=== PATIENT | male | born 1960 | race Caucasian/White ===

== ENCOUNTER → 2017-12-08 10:15 | Outpatient (CLI) | payer OTHER, SELFPAY ==
[2017-07-04 12:04] VITALS: BMI 29.2
--- NOTE | 2017-12-08 11:00 | STE_ITS ---
Reason For Study: CAD, Ischemic Cardiomyopathy Stress Results Protocol: Stress Echocardiogram Maximum Predicted HR: 164 bpm Target HR: 139 bpm% Maximum Pr edicted HR: 81 % DurationHeart Rate Stage (mm:ss) (bpm) BP BASELINE 67 132/84 BENEDICT PROTOCOL- STAGE 1 3:00 10 1 140/80 BENEDICT PROTOCOL- STAGE 2 3:00 11 2 138/84 BENEDICT PROTOCOL- STAGE 3 3:00 12 3 140/84 BENEDICT PROTOCOL- STAGE 4 1:30 13 3 / RECOVERY 85 132/80 Stress Duration: 10:30 mm:ss Maximum Stress HR: 133 bpm Baseline Echocardiogram Findings The estimated ejection fraction is 50 %. Stress Echo Wall motion Data Resting WMIntermediate WMStress WM Resting Wall Motion Anterio-Basal: Mildly hypokinetic. Basal anteroseptal: Mildly hypokinetic. Mid-Anterior : Severely Hypokinetic. Anterior [place] : Akinetic. EKG Data Normal intervals are noted. NSR with old anterior wall [place]. The patient exercised according to the regular Benedict protocol for a total duration of 10:30. The maximum heart rate attained was 133 beats per minute. This was 81% of maximum predicted heart rate. The patient exercised into stage 4 of the Benedict protocol. During stress, there were no ST or T wave changes noted to suggest ischemia. Interpretation Summary Normal adequate treadmill echocardiogram. Negative for ischemia by EKG and echocardiographic criteria. Patient had baseline moderate to severe anterior apical hypokinesis which did not worsen during exercise. All other coto augmented normally. No anginal symptoms noted. No arrhythmias noted. Above average exercise capacity for age. Appropriate blood pressure response to exercise. Patient tolerated the procedure well. No complications. Ordering Physician: Lewis Hoff Referring Physician: Lewis Hoff Performed By: Doreen Rincon, RDCS, RVT
== END ==
PROVIDERS: Family Provider Family Medicine; PCP Family Medicine; Visit Provider Internal Medicine Cardiovascular Disease
DX: I25.5 Ischemic cardiomyopathy (principal); I25.10 Atherosclerotic heart disease of native coronary artery without angina pectoris; E78.5 Hyperlipidemia, unspecified; I25.2 Old myocardial infarction; Z95.5 Presence of coronary angioplasty implant and graft; Z86.74 Personal history of sudden cardiac arrest; Z87.09 Personal history of other diseases of the respiratory system
CPT/HCPCS: 93017; 93350

== ENCOUNTER → 2018-01-13 22:22 | Outpatient (CLI) | payer OTHER, SELFPAY ==
[2017-07-04 12:04] VITALS: BMI 29.2
== END ==
PROVIDERS: Family Provider Family Medicine; PCP Family Medicine; Visit Provider Nurse Practitioner Acute Care
DX: G47.33 Obstructive sleep apnea (adult) (pediatric) (principal)
CPT/HCPCS: 95810

== ENCOUNTER → 2018-02-06 10:12 | Outpatient (CLI) | payer OTHER, SELFPAY ==
[2017-07-04 12:04] VITALS: BMI 29.2
--- NOTE | 2018-02-06 13:17 | PFT ---
INTRODUCTION: The patient is a 57-year-old male currently under the care of Sole Hough NP that presents for pulmonary function testing secondary to a diagnosis of dyspnea on exertion. Respiratory therapy reports good patient effort. Bronchodilators were used during testing. INTERPRETATION: Forced expiration spirometry demonstrates no evidence of a large airways obstructive ventilatory defect. There was no significant response to aerosolized bronchodilators, based upon strict ATS criteria. Spirograms are of fair quality and plateau normally. Body plethysmography was performed and reveals lung volumes to be within normal limits. Diffusing capacity by single breath CO is at the lower limits of normal at 78% of predicted. IMPRESSION: These pulmonary function studies are essentially within normal limits. There are no previous pulmonary function studies available for comparison.
== END ==
PROVIDERS: Family Provider Family Medicine; PCP Family Medicine; Visit Provider Nurse Practitioner Acute Care
DX: R06.09 Other forms of dyspnea (principal)
CPT/HCPCS: 94060; 94726; 94729

== ENCOUNTER → 2018-02-17 20:23 | Outpatient (CLI) | payer OTHER, SELFPAY ==
[2017-07-04 12:04] VITALS: BMI 29.2
== END ==
PROVIDERS: Family Provider Family Medicine; PCP Family Medicine; Visit Provider Internal Medicine Critical Care Medicine
DX: G47.33 Obstructive sleep apnea (adult) (pediatric) (principal)
CPT/HCPCS: 95811

== ENCOUNTER 2018-12-17 20:37 | Observation (INO) | payer OTHER, SELFPAY ==
[2017-07-04 12:04] VITALS: BMI 29.2
[2018-12-15 11:30] VITALS: BMI 28.1
[2018-12-17] VITALS (8 sets, daily range): BP systolic 126–137; BP diastolic 82–99; PULSE 64–80; RESP 17–20; TEMP 36.9–37.2; O2SAT 95–99; BMI 29.0; BMI 28.5; BMI 28.6
--- NOTE | 2018-12-17 20:49 | RAD_ITS ---
STUDY: X-RAY CHEST REASON FOR EXAM: Male, 58 years old. Chest pain TECHNIQUE: Frontal view of the chest COMPARISON: 07/25/2017 FINDINGS: The lungs are clear. There are no pleural effusions. There is no pneumothorax. The heart is normal in size. The visualized osseous structures are within normal limits. RAD/Chest 1 View (Portable) IMPRESSION: No acute thoracic pathology. Electronically Signed: Mathew Nichols, at 21:24 EST Tel , Service support ,
--- NOTE | 2018-12-17 20:49 | EKG12_ITS ---
Test Reason : CP Blood Pressure : / mmHG Vent. Rate : 077 BPM Atrial Rate : 077 BPM P-R Int : 168 ms QRS Dur : 080 ms QT Int : 460 ms P-R-T Axes : 048 -34 072 degrees QTc Int : 520 ms Normal sinus rhythm Left axis deviation Low voltage QRS Septal infarct , age undetermined Abnormal ECG Confirmed by DAVION CADE, MEGHNA ([id number]), manager editorial MAYKEL PAYAN ([id number]) on 12/18/2018 2:38:09 PM Referred By: RAMÍREZ Confirmed By:MEGHNA RICARDO MD
[2018-12-17] MEDS: Ondansetron 4 MG/2 ML Vial IV (20:53)
--- NOTE | 2018-12-17 20:53 | ED.DCSUM_ITS ---
- ER Visit Summary Date of Service: 12/17/18 Chief Complaint: Chest pain History of Present Illness: The patient is a 58 M presenting with chest pain. He states this started around 5 PM. He has substernal chest pain. He also complains of epigastric pain. He states this feels similar to his [place] June 2017. He states pain is 8 out of 10. It is not worsened or relieved with anything. History of hypertension and previous smoker. He has a family history of early heart disease. He saw Dr. Hoff on Tuesday and was scheduled for an echo and stress test. Physical Examination: Vitals are stable. Patient is afebrile. Alert no acute distress. HEENT exam is unremarkable. Neck is supple. Lungs are clear and equal bilaterally. Heart is regular rate and rhythm. Abdomen is soft nontender nondistended. Extremities are unremarkable. Skin is warm and dry. No focal neurologic deficit. Remainder of exam is unremarkable. Emergency Department Course and Treatment: Patient was given aspirin, morphine, Zofran. CBC, chemistries unremarkable other than BUN 26, creatinine 1.62. Troponin negative. Lipase is normal. EKG is sinus rate of 77. Chest x-ray shows no acute process. On reevaluation, patient is chest pain-free. Discussed with hospitalist for observation. Disposition: Observation Impression: Chest pain This note was generated with [employer] dictation software. It may contain incorrect words, spelling, and punctuation that were not noted in review of the chart prior to signing ED Disposition - Plan for ED Patient: Referrals: Yoel Cortez DO [Primary Care Provider] -
[2018-12-17] MEDS: Morphine 4 MG/ML Syringe IV (20:55)
[2018-12-17] MEDS: Aspirin 81 MG TAB.CHEW 324 MG PO (20:58)
[2018-12-17 20:59] LABS: Absolute Lymphocyte Count 2.52 X10^3/ul (0.83-4.51); Absolute Neutrophil Count 6.3 X10^3/uL (2.0-7.7); Basophil# 0.03 X10^3/uL; Basophil% 0.3 % (0-1); Eosinophil# 0.64 X10^3/uL; Hematocrit 44.7 % (40-54); Hemoglobin 14.8 g/dl (13.0-16.5); Lymphocyte # 2.52 X10^3/ul (4.0); Lymphocyte % 23.6 % (19-41); Mean Corp Hgb Conc 33.1 g/gl (32-36); Mean Corpuscular Hgb 32.5 pg (27.0-32.0); Mean Platelet Vol. 10.1 fl (6.2-12.0); Monocyte# 1.21 X10^3/uL; Monocyte% 11.3 % (0-10); Neutrophil # 6.27 X10^3/uL (2.7-7.7); Neutrophil % 58.6 % (47-70); POSITIVE COUNT NO; POSITIVE DIFFERENTIAL NO; POSITIVE MORPHOLOGY NO; Platelet Count 439 K/mm3 (150-450); RBC Distribution Width CV 13.4 % (11.6-14.6); RBC Distribution Width SD 47.6 fl (35.1-43.9); Red Blood Count 4.56 M/mm3 (4.6-6.2); White Blood Count 10.7 K/mm3 (4.4-11.0)
[2018-12-17 21:15] LABS: Anion Gap 6 (5-15); BUN 26 mg/dL (7-18); Calcium,Total 8.5 mg/dL (8.5-10.1); Chloride 106 mmol/L (98-107); Creatinine, Serum 1.62 mg/dL (0.70-1.30); EST Glomerular Filtration Rate 47 mL/min (>60); Est Glom Filt Rate - Afr Amer 57 mL/min (>60); Estimated Creatinine Clearance 51.95 ml/min; Glucose 101 mg/dL (74-106); Lipase 141 U/L (73-393); Potassium 3.8 mmol/L (3.5-5.1); Sodium Level 138 mmol/L (136-145)
--- NOTE | 2018-12-17 22:01 | PCM.HP.STD ---
Problem List (1) Ischemic cardiomyopathy Status: Chronic (2) Hyperlipidemia Status: Chronic (3) Atherosclerotic heart disease of [place] coronary artery without angina pectoris Status: Chronic Comment: aspiration thrombectomy, balloon angioplasty and CONNOR to proximal LAD 07/02/2017 (4) History of cardiac arrest Status: Chronic (5) HTN (hypertension) Status: Chronic History of Present Illness Date of Admission: 12/17/18 Chief Complaint: Epigastric pain/chest pain. The patient is a 58 year old M with past medical history as mentioned above presented to the emergency room because of epigastric pain/chest pain. The patient is not interested in talking during the encounter and he kept his eyes closed throughout the encounter. His and daughter were at the bedside and his assisted providing the history. According to the patient, he started having epigastric pain 4-5 hours ago, sharp pain, 9 out of 10 in severity, sometimes goes to the left side of his chest, no aggravating or relieving factors and without other associated symptoms. He denies shortness of breath, dizziness, palpitation, syncope or presyncope. His mentioned that he does have a history of reflux. Also, she mentioned that this pain was very similar to the pain when he had his heart attack 2 [address] He [address] Hoff this past Tuesday with complaint of chest pain and he states that his pain today is different from the pain he had when he saw Dr. Hoff 2 days ago. Patient denied nausea, vomiting, constipation or diarrhea. In the emergency department, his vital signs are stable. His routine blood work was remarkable for BUN of 26 and creatinine of 1.62, otherwise normal. His lipase was normal. EKG revealed normal sinus rhythm, normal [place] interval, normal QRS, no acute ischemic changes. Troponin is negative. Chest x-ray showed no acute findings. He is being admitted for chest pain/epigastric pain for evaluation. Past Medical History Past Medical History (Chronic Problems): Chronic Problems (Last Updated 12/17/18 @ 21:45 by Paige Hollins MD) PETERSON (obstructive sleep apnea) (Chronic) BiPAP 12/8 cm of water History of pneumothorax (Chronic) Ischemic cardiomyopathy (Chronic) Hyperlipidemia (Chronic) Tobacco abuse (Chronic) Stented coronary artery (Chronic) aspiration thrombectomy, balloon angioplasty and CONNOR to proximal LAD 07/02/2017 Atherosclerotic heart disease of [place] coronary artery without angina pectoris (Chronic) aspiration thrombectomy, balloon angioplasty and CONNOR to proximal LAD 07/02/[address] elevation myocardial infarction (STEMI) (Chronic) History of cardiac arrest (Chronic) HTN (hypertension) (Chronic) Medical History: Medical History (Last Updated 12/17/18 @ 21:45 by Paige Hollins MD) History of pneumothorax (Chronic) Z87.09 Ischemic cardiomyopathy (Chronic) I25.5 Hyperlipidemia (Chronic) E78.5 Tobacco abuse (Chronic) Z72.0 Atherosclerotic heart disease of [place] coronary artery without angina pectoris (Chronic) I25.10 aspiration thrombectomy, balloon angioplasty and CONNOR to proximal LAD 07/02/[address] elevation myocardial infarction (STEMI) (Chronic) I25.2 History of cardiac arrest (Chronic) Z86.74 HTN (hypertension) (Chronic) I10 Allergies No Known Allergies Allergy (Verified 12/17/18 21:03) Home Medications: Ambulatory Orders Medication Instructions Recorded buPROPion XL [Wellbutrin Xl] 150 mg PO DAILY 07/08/17 Aspirin [Aspirin, Baby] 81 mg PO DAILY@0800 #30 tab.chew 07/12/17 Potassium Chloride [Klor-Con 10] 10 meq PO DAILY #14 tablet.er 07/12/17 atorvastatin 20 mg tablet 20 mg PO QHS #90 tab 07/24/18 carvedilol 6.25 mg tablet 6.25 mg PO BID #180 tab 07/24/18 clopidogrel 75 mg tablet 75 mg PO QDAY #90 tab 07/24/18 furosemide 20 mg tablet 20 mg PO DAILY #90 tab 07/24/18 losartan 50 mg tablet 50 mg PO DAILY #90 tab 07/24/18 isosorbide mononitrate ER 30 mg 30 mg PO DAILY #30 tab 12/15/18 tablet,extended release 24 hr Surgical History: Surgical History (Last Updated 12/17/18 @ 21:45 by Paige Hollins MD) Stented coronary artery (Chronic) Z95.5 aspiration thrombectomy, balloon angioplasty and CONNOR to proximal LAD 07/02/2017 Surgical History: - - surgeries in the past for sleep apnea, broken neck in 1982 Psychiatric History: No pertinent psych hx Lives: Spouse/ Significant Other Smoking Status: Former smoker Alcohol: None Drugs: None - *Family History Sibling Family History: Family History (Last Reviewed 12/15/18 @ 11:20 by Virgie Douglas) Father CAD (coronary artery disease) Mother History of heart valve replacement Brother CVA (cerebral vascular accident) Aunt CAD (coronary artery disease) Uncle CAD (coronary artery disease) History Items: Heart Disease Maternal Family History: Family History (Last Reviewed 12/15/18 @ 11:20 by Virgie Douglas) Father CAD (coronary artery disease) Mother History of heart valve replacement Brother CVA (cerebral vascular accident) Aunt CAD (coronary artery disease) Uncle CAD (coronary artery disease) History Items: Heart Disease, - - strokes Paternal Family History: Family History (Last Reviewed 12/15/18 @ 11:20 by Virgie Douglas) Father CAD (coronary artery disease) Mother History of heart valve replacement Brother CVA (cerebral vascular accident) Aunt CAD (coronary artery disease) Uncle CAD (coronary artery disease) History Items: Heart Disease Review of Systems Constitutional: Reports: Anorexia. Denies: Chills, Fever, Weakness Eyes: Denies: Blurred vision, Double vision, Drainage, Redness HEENT: Denies: Difficulty Hearing, Ear Pain, Eye Pain, Nasal Congestion, Sore Throat Cardiovascular: Reports: Chest Pain. Denies: Chest Pressure, Chest Tightness, Edema, Heaviness, Light Headedness, Orthopnea, Paroxysmal Noc. Dyspnea, Syncope Respiratory: Denies: Cough, Hemoptysis, Pleuritic Pain, Shortness of Breath, Sputum production, Wheezing Gastrointestinal: Reports: Abdominal Pain. Denies: Constipation, Diarrhea, Nausea, Vomiting Genitourinary: Denies: Dysuria, Frequency, Hematuria Musculoskeletal: Denies: Arm Pain, Back Pain, Foot Pain Skin: Denies: Dryness, Rash Neurological: Denies: Balance problems, Double vision, Change in Speech, Slurred speech, Confusion, Headaches, Incoordination Psychiatric: Denies: Anxiety, Depression Endocrine: Denies: Change in Body Habitus, Polydipsia VTE Information - Inpt Only VTE Present on Admission: No VTE Mechan Device Prophylaxis: None VTE Pharm Prophylaxis ordered?: No - Physical Exam General: Alert, Oriented x3, Cooperative, No apparent distress HEENT: Atraumatic, PERRLA, EOMI, Normocephalic Oral: Moist Mucosa, No Gingival or Mucosal Lesions/ Ulcerations Neck: Supple, No JVD, Negative Carotid Bruits, Trachea Midline, Thyroid Normal Size and Texture Lungs: Clear to auscultation, Normal air movement, No rhonchi, No wheeze, No rales Cardiovascular: Regular rate, Regular Rhythm, Normal S1, Normal S2, PMI Normal Abdomen: Bowel Sounds Present, Soft, Non-Distended, No Hepato-splenomegaly, Tender - Minimal epigastric tenderness. Extremities: No clubbing, No cyanosis, No edema Skin: No rashes, No breakdown Lymphatic: No Cervical, Supraclavicular, or Inguinal Adenopathy Neurological: Cranial nerves II-XII grossly intact, Motor Exam 5/5 strength throughout Psych/Mental Status: Normal Affect, Appropriate, Alert and oriented to time, place, person, mood and affect Vital Signs Temp Pulse Resp BP Pulse Ox 98.9 F 65 18 130/84 H 99 12/17/18 20:38 12/17/18 21:53 12/17/18 21:53 12/17/18 21:53 12/17/18 21:53 Oxygen Flow Rate (L/min) 2 Oxygen Delivery Method Nasal Cannula Weight: 202 lb Body Mass Index (BMI) 29.0 Laboratory Tests Past 24 Hrs 12/17/18 12/17/18 20:47 20:47 WBC 10.7 RBC 4.56 L Hgb 14.8 Hct 44.7 MCV 98.0 H MCH 32.5 H MCHC 33.1 RDW 13.4 RDW Differential 47.6 H Plt Count 439 MPV 10.1 Immature Gran % (Auto) 0.200 Neut % (Auto) 58.6 Lymph % (Auto) 23.6 Branch % (Auto) 11.3 H Eos % (Auto) 6.0 H Baso % (Auto) 0.3 Absolute Neuts (auto) 6.3 Absolute Lymphs (auto) 2.52 Total Counted Not Reportable Sodium 138 Potassium 3.8 Chloride 106 Carbon Dioxide 26.0 Anion Gap 6 BUN 26 H Creatinine 1.62 H Estim Creat Clear Calc 51.95 Est GFR (MDRD) Af Amer 57 L Est GFR (MDRD) Non-Af 47 L BUN/Creatinine Ratio 16.0 Glucose 101 Calcium 8.5 Troponin I < 0.015 Lipase 141 Clinical Impression(s) from Imaging Studies Chest X-Ray 12/17/18 20:49 IMPRESSION: No acute thoracic pathology. Electronically Signed: Mathew Nichols, at 21:24 EST Tel , Service support , Assessment/Plan This is a 58 years old male patient presented to the emergency room because of epigastric/chest pain and he is being admitted for evaluation because he had a history of CAD status post stents and also found to have acute kidney injury. #1 epigastric pain/chest pain/probable angina pectoris: Differential diagnoses include GERD, peptic ulcer disease or acute coronary syndrome. Patient's mentioned that he had the same pain he had his heart attack 2 years ago. EKG revealed normal sinus rhythm without evidence of acute ischemic changes. Troponin is negative. Chest x-ray showed no acute findings. Plan: Admit to PCU for observation, cardiac monitoring, serial cardiac enzymes, repeat EKG tomorrow morning, start IV Protonix, Mylanta as needed, IV fluids, nuclear stress test tomorrow morning if cardiac enzymes are negative. #2 acute kidney injury: Baseline kidney function is normal, likely due to dehydration as well as Lasix and losartan. Plan: Gentle IV fluids for hydration, and Protopic chart, hold Lasix and losartan, repeat BMP tomorrow morning. #3 CAD status post stents: EKG reviewed as above, plan as above, continue aspirin, statins, Coreg, Plavix and nitrates. #4 hypertension: Blood pressure stable, continue Coreg and isosorbide mononitrate, hold losartan. #5 hyperlipidemia: Continue statins. #6 history of cardiac arrest. #7 DVT prophylaxis: Low-risk patient, no prophylaxis indicated. This note was generated with [employer] dictation software. It may contain incorrect words, spelling, and punctuation that were not noted in checking the note before signing. Code Visit OBSV E&M: 70742 Initial observation care L3
--- NOTE | 2018-12-17 22:08 | CM.ED ---
Social Work Assessment Referral Date: 12/17/18 Date of Assessment: 12/17/18 Informant: SELF REFERRAL Reason for Consult: INITIAL ASSESSMENT Information obtained from: PT'S , MARIE [phone] Living Arrangements: PT LIVES HOME WITH FAMILY IN A 2 STORY HOME. Employment/Financial: PT EMPLOYED BY [employer]. PT HAS INSURANCE THROUGH THE [employer]. Supports: PT HAS GOOD SUPPORT FROM FAMILY. Social/Family Stressors: NONE IDENTIFIED AT THIS TIME. Mental Health History: REPORTS HX OF DEPRESSION FOR PT AND STATES IS TREATED WITH MEDICATION-WELLBUTRIN. Substance Abuse History: STATES PT WAS A PREVIOUS SMOKER. Interventions: SOCIAL SERVICE ASSESSMENT Assessment: PT IS A 58 Y/O MALE WHO PRESENTS TO THE ED WITH CHEST PAIN, ABDOMINAL PAIN. PT WITH HX OF PA. REPORTS PT LIVES HOME WITH FAMILY IN A 2 STORY HOME. STATES PRIOR TO ADMISSION PT WAS INDEPENDENT WITH ALL ADLS AND WORKING. REPORTS HX OF DEPRESSION FOR PT AND STATES IS TREATED WITH MEDICATION-WELLBUTRIN PRESCRIBED BY PCP DR. JERRY IN [place]. REPORTS UTILIZES [facility]. EXPLAINED THIS WORKER'S ROLE. VOICES NO QUESTIONS OR CONCERNS AT THIS TIME. ANTICIPATE D/C HOME UPON D/C. PLAN: ADMIT
--- NOTE | 2018-12-17 22:34 | EKG12_ITS ---
Test Reason : CP ADMIT Blood Pressure : / mmHG Vent. Rate : 064 BPM Atrial Rate : 064 BPM P-R Int : 178 ms QRS Dur : 094 ms QT Int : 406 ms P-R-T Axes : 050 -32 -07 degrees QTc Int : 418 ms Normal sinus rhythm Left axis deviation Septal infarct , age undetermined T wave abnormality, consider anterior ischemia Abnormal ECG When compared with ECG of 05-JUL-2017 05:56, ST no longer elevated in Anterior leads Confirmed by DAVION CADE, MEGHNA ([id number]), food editor MAYKEL PAYAN ([id number]) on 12/19/2018 1:12:28 PM Referred By: DR TATE Confirmed By:MEGHNA RICARDO MD
[2018-12-17 23:07] LABS: AST(SGOT) 28 U/L (15-37); Alanine Aminotransfer ALT/SGPT 47 U/L (16-61); Albumin, Serum 3.9 g/dL (3.2-5.0); Alkaline Phosphatase 136 U/L (45-117); Bilirubin, Direct 0.15 mg/dL (0.00-0.30); Globulin 3.7 g/dL (2.2-4.2); Protein, Total 7.6 g/dL (6.4-8.2)
[2018-12-17] MEDS: Atorvastatin Calcium 20 MG Tablet PO (23:35)
[2018-12-17] MEDS: 0.9% Normal Saline 1,000 ML 75 ML IV (23:35)
[2018-12-18 03:18] VITALS: PULSE 68
[2018-12-18 05:00] VITALS: BP 108/71; PULSE 65; RESP 18; TEMP 36.8; O2SAT 96
[2018-12-18] MEDS: Aspirin 81 MG TAB.CHEW PO (05:06)
[2018-12-18] MEDS: Clopidogrel Bisulfate 75 MG Tablet PO (05:06)
--- NOTE | 2018-12-18 05:55 | EKG12_ITS ---
Test Reason : AM Blood Pressure : / mmHG Vent. Rate : 069 BPM Atrial Rate : 069 BPM P-R Int : 174 ms QRS Dur : 088 ms QT Int : 412 ms P-R-T Axes : 055 -24 016 degrees QTc Int : 441 ms Normal sinus rhythm Anteroseptal infarct , age undetermined Abnormal ECG When compared with ECG of 17-DEC-2018 22:40, MANUAL COMPARISON REQUIRED, DATA IS UNCONFIRMED Confirmed by DAVION CADE, MEGHNA ([id number]), movie editor MAYKEL PAYAN ([id number]) on 12/19/2018 1:09:35 PM Referred By: BEBETO Confirmed By:MEGHNA RICARDO MD
[2018-12-18 06:20] LABS: Anion Gap 9 (5-15); BUN 22 mg/dL (7-18); BUN/Creat Ratio 16.2 RATIO (10-20); Calcium,Total 7.8 mg/dL (8.5-10.1); Chloride 107 mmol/L (98-107); Creatinine, Serum 1.36 mg/dL (0.70-1.30); EST Glomerular Filtration Rate 57 mL/min (>60); Est Glom Filt Rate - Afr Amer 69 mL/min (>60); Estimated Creatinine Clearance 61.88 ml/min; Glucose 108 mg/dL (74-106); Potassium 3.8 mmol/L (3.5-5.1); Sodium Level 142 mmol/L (136-145)
[2018-12-18 06:26] LABS: Absolute Lymphocyte Count 2.36 X10^3/ul (0.83-4.51); Absolute Neutrophil Count 4.3 X10^3/uL (2.0-7.7); Basophil# 0.02 X10^3/uL; Basophil% 0.2 % (0-1); Eosinophil# 0.52 X10^3/uL; Eosinophils% 6.2 % (0-5); Hemoglobin 13.2 g/dl (13.0-16.5); Lymphocyte # 2.36 X10^3/ul (4.0); Lymphocyte % 28.3 % (19-41); Mean Corpuscular Hgb 32.4 pg (27.0-32.0); Mean Platelet Vol. 10.2 fl (6.2-12.0); Monocyte# 1.09 X10^3/uL; Monocyte% 13.1 % (0-10); Neutrophil # 4.33 X10^3/uL (2.7-7.7); Neutrophil % 52.1 % (47-70); Platelet Count 378 K/mm3 (150-450); RBC Distribution Width CV 13.4 % (11.6-14.6); RBC Distribution Width SD 47.7 fl (35.1-43.9); Red Blood Count 4.08 M/mm3 (4.6-6.2); White Blood Count 8.3 K/mm3 (4.4-11.0)
[2018-12-18 06:27] LABS: POSITIVE COUNT NO; POSITIVE DIFFERENTIAL NO; POSITIVE MORPHOLOGY NO
[2018-12-18 07:00] VITALS: PULSE 66
[2018-12-18 08:00] VITALS: O2SAT 93
[2018-12-18] MEDS: buPROPion (XL) 150 MG TABLET.XL PO (10:30)
[2018-12-18] MEDS: Isosorbide Mononitrate 30 MG Tablet PO (10:30)
[2018-12-18 10:37] VITALS: BP 130/85; PULSE 73; RESP 16; TEMP 36.6; O2SAT 95
[2018-12-18 11:00] VITALS: PULSE 69
--- NOTE | 2018-12-18 11:58 | STRESSREP ---
Stress Test Report Exercise myocardial perfusion stress test. 58-year-old man with a history of previous anterior wall myocardial infarction. Stress protocol: Resting EKG demonstrates normal sinus rhythm with a rate of 62 bpm normal intervals are noted poor R wave progression suggestive of a previous anterior infarct is present. Resting blood pressure 122/86. The patient decides to according to regular Boni protocol for total duration of 10 minutes patient completed 1 minute into stage IV of the Boni protocol. The maximum heart rate attained was 134 bpm which was 82% of maximum predicted heart rate the maximum workload was 11.7 metabolic equivalents. The patient maintained sinus rhythm throughout the recording. At rest there were no ST or T wave changes noted suggest ischemia peak exercise upsloping ST changes were noted with normally the criteria for ischemia no clinical angina was noted occasional premature ventricular complexes were present. The resting blood pressure was 122/86 peak blood pressure 150/60 mmHg Myocardial perfusion protocol. 11.6 mCi of technetium 99m sestamibi was injected at rest. The patient exercised according to regular Boni protocol. This was for total duration of 10 minutes. At peak exercise 33.7 mCi of technetium 99m sestamibi was injected stress images were obtained stress and rest images were reconstructed and compared in the short axis vertical and horizontal long axis. Gated images were also obtained. No angina was noted. Next Perfusion SPECT analysis: Review of the stress images demonstrate an upper normal left ventricular size. There is a large defect noted involving the mid anterior wall extending all the way through the apex. The anteroseptal wall is also affected. The resting images demonstrate a similar pattern. The above is suggestive of a previous large anteroseptal and apical infarct. No ischemia is noted. Gated SPECT analysis: The gated ejection fraction is noted to be 45% there is anterior apical hypokinesis noted. Conclusion: Exercise myocardial perfusion stress test with no evidence of ischemia noted at a high workload. Previous extensive anteroseptal and apical infarct. No clinical angina noted. No arrhythmias present.
--- NOTE | 2018-12-18 14:01 | DCINST_ITS ---
You will use the following diet at home:: Cardiac Your food should be the consistency of: Regular Your liquids should be the consistency of: Regular/Thin Discharge Activity: Return to Normal Activity, No Restrictions Call your doctor if you observe: Fever of 101 or Higher, Shortness of breath, Dizziness, Fainting spells, Swelling in the ankles, Chest pain, Increased palpitations (irregular heartbeat) Allergies/Adverse Reactions: Allergies No Known Allergies Allergy (Verified 12/17/18 21:03) Medications to take at Discharge buPROPion XL [Wellbutrin Xl] 150 mg PO DAILY 07/08/17 Aspirin [Aspirin, Baby] 81 mg PO DAILY@0800 #30 tab.chew 07/12/17 Potassium Chloride [Klor-Con 10] 10 meq PO DAILY #14 tablet.er 07/12/17 atorvastatin 20 mg tablet 20 mg PO QHS #90 tab 07/24/18 carvedilol 6.25 mg tablet 6.25 mg PO BID #180 tab 07/24/18 clopidogrel 75 mg tablet 75 mg PO QDAY #90 tab 07/24/18 furosemide 20 mg tablet 20 mg PO DAILY #90 tab 07/24/18 losartan 50 mg tablet 50 mg PO DAILY #90 tab 07/24/18 isosorbide mononitrate ER 30 mg tablet,extended release 24 hr 30 mg PO DAILY #30 tab 12/15/18 Primary Care Physician: Yoel Cortez DO [Primary Care Provider] - Please follow up with your Primary Care Physician in: 3-5 days Test Results: Test results from this visit will be discussed in further detail at your follow- up appointment, if applicable.
--- NOTE | 2018-12-18 14:06 | DS.PCM_ITS ---
Discharge Date and Diagnosis Date of Admission: 12/17/18 Date of Discharge: 12/18/18 - \ - Secondary Discharge Diagnosis Chronic Problems (Last Updated 12/17/18 @ 21:45 by Paige Hollins MD) PETERSON (obstructive sleep apnea) (Chronic) BiPAP 12/8 cm of water History of pneumothorax (Chronic) Ischemic cardiomyopathy (Chronic) Hyperlipidemia (Chronic) Tobacco abuse (Chronic) Stented coronary artery (Chronic) aspiration thrombectomy, balloon angioplasty and CONNOR to proximal LAD Atherosclerotic heart disease of [place] coronary artery without angina pectoris (Chronic) aspiration thrombectomy, balloon angioplasty and CONNOR to proximal LAD 07/02/[address] elevation myocardial infarction (STEMI) (Chronic) History of cardiac arrest (Chronic) HTN (hypertension) (Chronic) Hospital Course and Treatment Imaging Results: 12/18/18 05:55 Nuclear Stress Test - Treadmil [NM] Routine Consults: None Operations: None Procedures: Nuclear stress test - Gated SPECT analysis: The gated ejection fraction is noted to be 45% there is anterior apical hypokinesis noted. Conclusion: Exercise myocardial perfusion stress test with no evidence of isc hemia noted at a high workload. Previous extensive anteroseptal and apical infarct. No clinical angina noted. No arrhythmias present. Summary of Care Provided: Per HPI: The patient is a 58 year old M with past medical history as mentioned above presented to the emergency room because of epigastric pain/chest pain. The patient is not interested in talking during the encounter and he kept his eyes closed throughout the encounter. His and daughter were at the bedside and his assisted providing the history. According to the patient, he s tarted having epigastric pain 4-5 hours ago, sharp pain, 9 out of 10 in severity, sometimes goes to the left side of his chest, no aggravating or relieving factors and without other associated symptoms. He denies shortness of breath, dizziness, palpitation, syncope or presyncope. His mentioned that he does have a history of reflux. Also, she mentioned that this pain was very similar to the pain when he had his heart attack 2 years ago[address] He saw Dr[address] Hoff this past Tuesday with complaint of chest pain and he states that his pain today is different from the pain he had when he saw Dr. Hoff 2 days ago. Patient denied nausea, vomiting, constipation or diarrhea. In the emergency department, his vital signs are stable. His routine blood work was remarkable for BUN of 26 and creatinine of 1.62, otherwise normal. His lipase was normal. EKG revealed normal sinus rhythm, normal WA interval, normal QRS, no acute ischemic changes. Troponin is negative. Chest x-ray showed no acute findings. He is being admitted for chest pain/epigastric pain for evaluation. Hospital Course: 1. Gastric pain/chest pain/AK [id number] male with previous coronary artery disease history status post stents. He did have an RI previously and is on aspirin, Plavix, Coreg, statins, and isosorbide, who presented with upper abdominal pain/possible chest pain. Initial troponins were all negative x3 and he had a cardiac stress test today which was negative for any new ischemia. He states that he feels much better than when he came in and states that his pain has resolved both in his upper abdomen as well as his chest. He did have an increased creatinine to 1.62 on admission which is down to 1.36 on the day of discharge. His Lasix and losartan were held on admission but these can be resumed on discharge tomorrow. I do recommend that he follow-up with his primary care physician for follow-up of his renal function. 2. His other medical diagnoses were evaluated and his home medications were continued where appropriate - Physical Exam General: Alert, Oriented x3, Cooperative, No apparent distress HEENT: Atraumatic, PERRLA, EOMI, Normocephalic Oral: Moist Mucosa Neck: Supple, No JVD, Trachea Midline Lungs: Clear to auscultation, Normal air movement, No rhonchi, No wheeze, No rales Cardiovascular: Regular rate, Regular Rhythm, Normal S1, Normal S2, No murmurs Abdomen: Soft, Non Tender, Non-Distended, No Hepato-splenomegaly Extremities: No edema, Capillary Refill Less than 3 Seconds Skin: No rashes, No breakdown Neurological: Neuro grossly intact, Sensory exam intact to light touch and pain Psych/Mental Status: Normal Affect, Appropriate Vital Signs Temp Pulse Resp BP Pulse Ox 97.9 F 69 16 130/85 H 95 12/18/18 10:37 12/18/18 11:00 12/18/18 10:37 12/18/18 10:37 12/18/18 10:37 Oxygen Flow Rate (L/min) 2 Oxygen Delivery Method Room Air Weight: 199 lb 4.766 oz Body Mass Index (BMI) 28.5 Intake and Output for Last 24 Hours 12/16/18 12/17/18 12/18/18 23:59 23:59 23:59 Intake Total 360 / 360 1167 / 1167 Balance 360 / 360 1167 / 1167 Laboratory Tests Past 24 Hrs 12/17/18 12/17/18 12/17/18 20:47 20:47 20:47 WBC 10.7 RBC 4.56 L Hgb 14.8 Hct 44.7 MCV 98.0 H MCH 32.5 H MCHC 33.1 RDW 13.4 RDW Differential 47.6 H Plt Count 439 MPV 10.1 Immature Gran % (Auto) 0.200 Neut % (Auto) 58.6 Lymph % (Auto) 23.6 [place] % (Auto) 11.3 H Eos % (Auto) 6.0 H Baso % (Auto) 0.3 Absolute Neuts (auto) 6.3 Absolute Lymphs (auto) 2.52 Total Counted Not Reportable Sodium 138 Potassium 3.8 Chloride 106 Carbon Dioxide 26.0 Anion Gap 6 BUN 26 H Creatinine 1.62 H Estim Creat Clear Calc 51.95 Est GFR (MDRD) Af Amer 57 L Est GFR (MDRD) Non-Af 47 L BUN/Creatinine Ratio 16.0 Glucose 101 Calcium 8.5 Total Bilirubin 0.40 Direct Bilirubin 0.15 AST 28 ALT 47 Alkaline Phosphatase 136 H Troponin I < 0.015 Total Protein 7.6 Albumin 3.9 Globulin 3.7 Lipase 141 12/17/18 12/18/18 12/18/18 23:49 02:55 05:20 WBC 8.3 RBC 4.08 L Hgb 13.2 Hct 40.0 MCV 98.0 H MCH 32.4 H MCHC 33.0 RDW 13.4 RDW Differential 47.7 H Plt Count 378 MPV 10.2 Immature Gran % (Auto) 0.100 Neut % (Auto) 52.1 Lymph % (Auto) 28.3 [place] % (Auto) 13.1 H Eos % (Auto) 6.2 H Baso % (Auto) 0.2 Absolute Neuts (auto) 4.3 Absolute Lymphs (auto) 2.36 Total Counted Not Reportable Sodium Potassium Chloride Carbon Dioxide Anion Gap BUN Creatinine Estim Creat Clear Calc Est GFR (MDRD) Af Amer Est GFR (MDRD) Non-Af BUN/Creatinine Ratio Glucose Calcium Total Bilirubin Direct Bilirubin AST ALT Alkaline Phosphatase Troponin I < 0.015 < 0.015 Total Protein Albumin Globulin Lipase 12/18/18 05:20 WBC RBC Hgb Hct MCV MCH MCHC RDW RDW Differential Plt Count MPV Immature Gran % (Auto) Neut % (Auto) Lymph % (Auto) [place] % (Auto) Eos % (Auto) Baso % (Auto) Absolute Neuts (auto) Absolute Lymphs (auto) Total Counted Sodium 142 Potassium 3.8 Chloride 107 Carbon Dioxide 26.0 Anion Gap 9 BUN 22 H Creatinine 1.36 H Estim Creat Clear Calc 61.88 Est GFR (MDRD) Af Amer 69 Est GFR (MDRD) Non-Af 57 L BUN/Creatinine Ratio 16.2 Glucose 108 H Calcium 7.8 L Total Bilirubin Direct Bilirubin AST ALT Alkaline Phosphatase Troponin I Total Protein Albumin Globulin Lipase Discharge Activity: Return to Normal Activity, No Restrictions Call your doctor if you observe: Fever of 101 or Higher, Shortness of breath, Dizziness, Fainting spells, Swelling in the ankles, Chest pain, Increased palpitations (irregular heartbeat) Home Medications: Medications to take at Discharge buPROPion XL [Wellbutrin Xl] 150 mg PO DAILY 07/08/17 Aspirin [Aspirin, Baby] 81 mg PO DAILY@0800 #30 tab.chew 07/12/17 Potassium Chloride [Klor-Con 10] 10 meq PO DAILY #14 tablet.er 07/12/17 atorvastatin 20 mg tablet 20 mg PO QHS #90 tab 07/24/18 carvedilol 6.25 mg tablet 6.25 mg PO BID #180 tab 07/24/18 clopidogrel 75 mg tablet 75 mg PO QDAY #90 tab 07/24/18 furosemide 20 mg tablet 20 mg PO DAILY #90 tab 07/24/18 losartan 50 mg tablet 50 mg PO DAILY #90 tab 07/24/18 isosorbide mononitrate ER 30 mg tablet,extended release 24 hr 30 mg PO DAILY #30 tab 12/15/18 Primary Care Physician: Yoel Cortez DO [Primary Care Provider] - Please follow up with your Primary Care Physician in: 3-5 days Disposition: Home Minutes spent on discharge:: 35 Patient Condition:: Good Medical Necessity - Tobacco Use Smoking Status: Former smoker Meaningful Use Info Meaningful Use Diagnoses (Choose all that apply): None applicable Code Visit OBSV E&M: 51261 Observation care discharge
== END 2018-12-18 14:01 | disposition home or self-care (01) ==
LOC: ED 21:10 → PCU 22:31
PROVIDERS: Admitting Provider Hospitalist; Emergency Provider Emergency Medicine; Family Provider Family Medicine; PCP Family Medicine; Visit Provider Family Medicine
DX: R07.89 Other chest pain (principal); R10.13 Epigastric pain; I25.2 Old myocardial infarction; I10 Essential (primary) hypertension; Z23 Encounter for immunization; I25.10 Atherosclerotic heart disease of native coronary artery without angina pectoris; E78.5 Hyperlipidemia, unspecified; G47.33 Obstructive sleep apnea (adult) (pediatric); I25.5 Ischemic cardiomyopathy; N17.9 Acute kidney failure, unspecified; Z82.49 Family history of ischemic heart disease and other diseases of the circulatory system; Z87.891 Personal history of nicotine dependence; Z79.899 Other long term (current) drug therapy; Z79.02 Long term (current) use of antithrombotics/antiplatelets; Z79.82 Long term (current) use of aspirin; Z86.74 Personal history of sudden cardiac arrest
CPT/HCPCS: 36415; 71045; 78452; 80048; 80076; 83690; 84484; 85025; 93005; 93017; 96361; 96365; 96366; 96375; 99218; 99284; 99406; A9500; J7030; 90686; A4216; G0378; J2405

== ENCOUNTER → 2019-01-01 08:39 | Outpatient (CLI) | payer OTHER, SELFPAY ==
[2017-07-04 12:04] VITALS: BMI 29.2
[2018-12-15 11:30] VITALS: BMI 28.1
[2018-12-17 22:40] VITALS: BMI 28.5
--- NOTE | 2019-01-01 08:47 | ECHOD_ITS ---
Reason For Study: CHEST PAIN Procedure This was a 2D Doppler, Color Flow transthoracic echocardiogram. Exam performed in department. Left Ventricle Mildly dilated left ventricle. Mid cavitary false tendon noted. The estimated ejection fraction is 45-50 %. Normal diastology for age. No regional wall motion abnormalities noted. Right Ventricle Normal size and thickness. Normal systolic function. Atria The left atrium is mildly enlarged. Normal right atrium. Normal atrial septum. Mitral Valve The mitral valve is structurally normal. No prolapse or stenosis seen. Tricuspid Valve Normal tricuspid valve. Trivial tricuspid valve insufficiency. Right ventricular systolic pressure estimated to be 23 mmHg. Aortic Valve Normal aortic valve. Trisinus/trileaflet aortic valve. Pulmonic Valve Normal pulmonic valve. Trivial eccentric pulmonic valve insufficiency. Great Vessels Normal aortic root. Normal arch. Normal inferior vena cava. Inferior vena cava collapse with sniff. Pericardium/Pleural No pericardial effusion. MMode/2D Measurements & Calculations LVIDd: 5.5 cm IVSd: 1.1 cm Ao root diam: 2.8 cm LVIDs: 3.9 cm LVPWd: 1.2 cm RVDd: 3.4 cm FS: 29.2 % LAV(MOD-bp): 85.3 ml LA A4 area: 23.6 cm2 LA dimension(2D): 4.4 cm LAV(MOD-bp) Indexed: 41.3 ml/m2 LAV(MOD-sp2): 80.8 ml LAV(MOD-sp4): 82.9 ml RA A4 area: 15.9 cm2 Doppler Measurements & Calculations MV E max beau: 54.2 cm/sec Lat Peak E' Beau: 5.9 cm/sec Med Peak E' Beau: 5.6 cm/sec MV A max beau: 47.8 cm/sec E/E' lat: 9.2 E/E' med: 9.8 MV E/A: 1.1 Ao V2 max: 117.3 cm/sec LV V1 max: 91.3 cm/sec PA V2 max: 99.7 cm/sec Ao max P.5 mmHg LV V1 max P.3 mmHg TR max beau: 210.6 cm/sec TR max P.8 mmHg Interpretation Summary Mildly dilated left ventricle. The estimated ejection fraction is 45-50 %. Normal diastology for age. The left atrium is mildly enlarged. Trivial tricuspid valve insufficiency. Right ventricular systolic pressure estimated to be 23 mmHg. Compared to echo report dated 10/28/2017, no appreciable changes noted. Ordering Physician: Lewis Hoff Referring Physician: Yoel Cortez Performed By: Sandy Noel RDCS, RVT
[2019-01-01 10:07] LABS: AST(SGOT) 18 U/L (15-37); Alanine Aminotransfer ALT/SGPT 30 U/L (16-61); Albumin, Serum 3.7 g/dL (3.2-5.0); Alkaline Phosphatase 100 U/L (45-117); Bilirubin, Direct 0.25 mg/dL (0.00-0.30); Cholesterol 107 mg/dL (200); Globulin 3.4 g/dL (2.2-4.2); High Density Lipoprotein 51 mg/dL; Protein, Total 7.1 g/dL (6.4-8.2); Triglycerides 65 mg/dL; Very Low Density Lipoprotein 13 mg/dL (5-40)
== END ==
PROVIDERS: Family Provider Family Medicine; PCP Family Medicine; Referring Provider Internal Medicine Cardiovascular Disease; Visit Provider Internal Medicine Cardiovascular Disease
DX: R07.9 Chest pain, unspecified (principal); I25.10 Atherosclerotic heart disease of native coronary artery without angina pectoris; E78.5 Hyperlipidemia, unspecified; I25.2 Old myocardial infarction; Z86.74 Personal history of sudden cardiac arrest; Z95.5 Presence of coronary angioplasty implant and graft
CPT/HCPCS: 36415; 80061; 80076; 93306

== ENCOUNTER 2019-08-01 07:40 | Day surgery (SDC) | payer SELFPAY ==
[2017-07-04 12:04] VITALS: BMI 29.2
[2019-07-27 13:04] VITALS: BMI 28.8
--- NOTE | 2019-07-27 14:15 | RAD_ITS ---
EXAM DESCRIPTION: PA and lateral chest CHEST CLINICAL HISTORY: 59 years Male, left chest pain COMPARISON: Prior chest obtained on 12/17/2018 FINDINGS: The thorax is intact. The heart and mediastinum appear to be within normal limits. The lungs appear to be well areated without evidence of pneumonic consolidation or pleural effusion. Some stable pleural thickening is noted in the right mid chest. RAD/Chest PA and Lateral IMPRESSION: No acute pathology Electronically Signed: Dameon Arellano, at 15:43 EDT Tel , Service support ,
[2019-07-27 15:19] LABS: Absolute Lymphocyte Count 1.89 X10^3/uL (0.83-4.51); Absolute Neutrophil Count 3.2 X10^3/uL (2.0-7.7); Basophil# 0.03 X10^3/uL; Basophil% 0.5 % (0-1); Eosinophil# 0.34 X10^3/uL; Eosinophils% 5.3 % (0-5); Hemoglobin 14.3 g/dL (13.0-16.5); Lymphocyte # 1.89 X10^3/ul (4.0); Lymphocyte % 29.2 % (19-41); Mean Corp Hgb Conc 33.3 g/dL (32-36); Mean Corpuscular Hgb 32.3 pg (27.0-32.0); Mean Corpuscular Volume 97.1 fL (80-94); Mean Platelet Vol. 10.3 fl (6.2-12.0); Monocyte# 0.97 X10^3/uL; NRBC Flagged by Analyzer 0 % (0-5); Neutrophil # 3.21 X10^3/uL (2.7-7.7); Neutrophil % 49.5 % (47-70); Platelet Count 436 K/mm3 (150-450); RBC Distribution Width SD 46.5 fl (35.1-43.9); Red Blood Count 4.43 M/mm3 (4.6-6.2); White Blood Count 6.5 K/mm3 (4.4-11.0)
[2019-07-27 15:21] LABS: International Normalized Ratio 1.2; Prothrombin Time (Protime)PT. 14.9 SECONDS (11.7-14.9)
[2019-07-27 15:34] LABS: AST(SGOT) 19 U/L (15-37); Alanine Aminotransfer ALT/SGPT 32 U/L (16-61); Albumin, Serum 3.7 g/dL (3.2-5.0); Alkaline Phosphatase 110 U/L (45-117); Anion Gap 4 (5-15); BUN 18 mg/dL (7-18); BUN/Creat Ratio 13.1 RATIO (10-20); Bilirubin, Direct 0.18 mg/dL (0.00-0.30); Calcium,Total 8.8 mg/dL (8.5-10.1); Chloride 108 mmol/L (98-107); Creatinine, Serum 1.37 mg/dL (0.70-1.30); EST Glomerular Filtration Rate 57 mL/min (>60); Est Glom Filt Rate - Afr Amer 69 mL/min (>60); Globulin 3.5 g/dL (2.2-4.2); Glucose 92 mg/dL (74-106); Potassium 4.2 mmol/L (3.5-5.1); Protein, Total 7.2 g/dL (6.4-8.2); Sodium Level 140 mmol/L (136-145)
[2019-08-01 08:36] LABS: Cholesterol 104 mg/dL (200); High Density Lipoprotein 52 mg/dL; Triglycerides 63 mg/dL; Very Low Density Lipoprotein 13 mg/dL (5-40)
[2019-08-01 08:48] VITALS: BMI 27.8
--- NOTE | 2019-08-01 11:01 | PCM.HP.BLA ---
Problem List (1) Atherosclerotic heart disease of [place] coronary artery without angina pectoris Status: Chronic Comment: aspiration thrombectomy, balloon angioplasty and CONNOR to proximal LAD 07/02/2017 (2) HTN (hypertension) Status: Chronic (3) History of ST elevation myocardial infarction (STEMI) Status: Chronic (4) History of cardiac arrest Status: Chronic (5) Hyperlipidemia Status: Chronic (6) Ischemic cardiomyopathy Status: Chronic History and Physical Date of Admission: 08/01/19 [facility] [address] [place] [address] OFFICE VISIT Date of Service: 07/27/19 MR#: [id number] Acct: [id number] Name: PATTY COFFMAN Rep #: [id number] : 1960 Provider: Lewis Hoff MD Age/Sex: 59/M Location: [facility] Status: Signed HPI HPI History of Present Illness Details: Chief Complaint: Routine f/u of coronary artery disease Details: Details: Mr. Coffman is a very pleasant 59-year-old nondiabetic gentleman previous less than 1 pack per day for 15 year smoker, still smokes about 3-4 cigarettes per week, with a history of hypertension, hypercholesterolemia, respiratory failure with V. fib arrest with subsequent 25 minutes of CPR followed by 5 defibrillatory shocks, and was found to have an acute anterior ST elevation myocardial infarction on 07/02/17. Patient underwent emergent left heart catheterization with emergent intra aortic balloon pump, thrombectomy, and drug-eluting stent to the LAD receiving a 3.5 X 22 resolute integrity stent postdilated 3.75 mm. At that time he had no subsequent coronary disease. His EF at that time was around 35-40% with anterior hypokinesis and the possibility of an LV apical thrombus. Patient had significant abdominal pain acutely and subsequent echocardiograms demonstrated that his LV apical thrombus appeared to be gone, possibly suggesting migration from his LV apex into his mesenteric area. The patient had no lower GI bleeding however and recovered fairly well. His acute care was complicated by a pneumothorax requiring a chest tube. Post procedure echocardiogram dated 07/06/17 showed improvement of his LV function to 50?55%. Repeat echocardiogram dated 01/01/2019 shows the following: Interpretation Summary Mildly dilated left ventricle. The estimated ejection fraction is 45-50 %. Normal diastology for age. The left atrium is mildly enlarged. Trivial tricuspid valve insufficiency. Right ventricular systolic pressure estimated to be 23 mmHg. Compared to echo report dated 10/28/2017, no appreciable changes noted. He was switched from Brilinta to Plavix due to cost issues did not have any shortness of breath. Patient completed about 6 weeks of cardiac rehab and then discontinue it as he had to get back to work. Patient works as a ro[employer]z. He is taking and tolerating his medicines well and states that he has quit smoking. Since our last visit, the patient has complained of atypical, nonexertional left-sided chest pain over his chest wall area, and occasionally over his right chest wall area. These occur with and without exertion and are dissimilar from his previous anginal symptoms which was more midepigastric pain. He has had no midepigastric pain. He has had no associated shortness of breath, nausea or vomiting. This pain had been going on for about 2 months time on and off and can last anywhere between a few seconds to half a day. He has not sought medical attention or contact our office. EKG from 12/15/2018 showed normal sinus rhythm with old anterior septal wall myocardial infarction, no acute changes. To better evaluate this chest pain in light of his previous coronary disease he underwent a treadmill/echocardiogram on 12/08/2017 which was negative for inducible ischemia. Patient then underwent a treadmill/MPI at a high workload, had no chest pain symptoms, and had evidence of old anteroseptal wall myocardial infarction. He is now here in follow-up. 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 Recently his chest pain was so bad, that he contemplated coming to the emergency room. Interestingly, this pain he describes is in his mid chest where his previous angina prior to his angioplasty was in his mid epigastrium. He has had no mid epigastrium pain. Patient states this is worse when he is under significant psychosocial stress. He is compliant with his medications and he has successfully quit smoking. He has not taken his blood pressure when these events happen. In our office today his blood pressure is 130/64, and pulse is 64 and regular. His physical exam demonstrates clear lungs bilaterally, regular rate and rhythm, normal S1/S2, no edema. No reproducible chest pain over his chest wall. No pleuritic type chest pain noted no bruits in his right groin. Lipids as of 07/03/2017 show an LDL of 46 and HDL of 47. Lipids as of 08/17/17 showed LDL of 30 and an HDL of 49. Repeat lipids as of 01/01/2019 showed an LDL of 43 and HDL of 51. EKG dated 07/05/17 showed normal sinus rhythm with resolving anterior ST elevation myocardial infarction. His most recent echocardiogram dated 10/28/17 showed an ejection fraction of 45-50% with anterior wall motion abnormality, unable to quantitate RVSP, no change from June 2017. Repeat lipids are pending. 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 Accompanied by: Is patient in pain?: No Allergies No Known Allergies Allergy (Verified 07/27/19 13:11) Medications buPROPion XL [Wellbutrin Xl] 150 mg PO DAILY 07/08/17 [History Confirmed 07/27/19] Aspirin [Aspirin, Baby] 81 mg PO DAILY@0800 #30 tab.chew 07/12/17 [Rx Confirmed 07/27/19] atorvastatin 20 mg tablet 20 mg PO QHS #90 tab 07/27/19 [Rx Confirmed 07/27/19] carvedilol 6.25 mg tablet 6.25 mg PO BID #180 tab 07/27/19 [Rx Confirmed 07/27/19] clopidogrel 75 mg tablet 75 mg PO QDAY #90 tab 07/27/19 [Rx Confirmed 07/27/19] furosemide 20 mg tablet 20 mg PO DAILY #90 tab 07/27/19 [Rx Confirmed 07/27/19] isosorbide mononitrate ER 30 mg tablet,extended release 24 hr 30 mg PO DAILY #90 tab 07/27/19 [Rx Confirmed 07/27/19] losartan 50 mg tablet 50 mg PO DAILY #90 tab 07/27/19 [Rx Confirmed 07/27/19] potassium chloride ER 10 mEq tablet,extended release 10 meq PO DAILY #90 tab 07/27/19 [Rx Confirmed 07/27/19] PFSH Medical History History of pneumothorax (Chronic) Ischemic cardiomyopathy (Chronic) Hyperlipidemia (Chronic) Tobacco abuse (Chronic) Atherosclerotic heart disease of [place] coronary artery without angina pectoris (Chronic) History of ST elevation myocardial infarction (STEMI) (Chronic) History of cardiac arrest (Chronic) HTN (hypertension) (Chronic) Surgical History Stented coronary artery (Chronic) Family History Father CAD (coronary artery disease) Mother History of heart valve replacement Brother CVA (cerebral vascular accident) Aunt CAD (coronary artery disease) Uncle CAD (coronary artery disease) Social History (Updated 07/27/19 @ 13:32 by Lewis Hoff MD) Smoking Status: Former smoker second hand exposure: Yes alcohol intake: never substance use type: does not use caffeine: Yes what type of physical activity do you participate in: walking frequency: daily ROS Const Const: Positive for other (Has midsternal CP 15 min-30 min. Has w/emotional stress. ER march test neg); negative for fatigue, weakness, body ache, fever(s), headache(s), chills, frequent falls, night sweats, daytime sleepiness, difficulty sleeping, excessive sweating, weight gain, weight loss, increased appetite, poor appetite or anorexia Eyes Eyes: Negative for blind spots, loss of peripheral vision, transient loss of vision, blurry vision, change in vision, double vision, floaters, tunnel vision or other ENT ENT: Negative for headache(s), dizziness, hearing loss, tinnitus, Nosebleed/epistaxis, balance problems, post nasal drip, lip swelling, tongue swelling, bleeding gums, hoarseness, neck pain, dry mouth or other Cardio Chest Pain: Yes Frequency: other (every 2-3 weeks ) Character: other (pressure) Onset: other (emotional stress) Location: mid sternal Duration: minutes (15 to 30 minutes) Palpitations: No Edema: None Muscle aches with walking: None Resp Respiratory: Negative for SOB with activity, SOB at rest, SOB orthopnea\SOB lying down, Cough, Coughing up blood/hemoptysis, chest congestion, pain on inspiration, snoring, stridor, wheezing, crackles, paroxysmal nocturnal dyspnea or other GI GI: Negative nausea, vomiting, heartburn, constipation, belching, bloating, cramping, vomiting blood/hematemesis, bright, red blood in stools, black,tarry stools, loose stools, Difficulty Swallowing or other : Negative for hematuria, frequent nighttime urination/ nocturia, erectile dysfunction or abnormal vaginal bleeding Musc Musc: Negative for muscle aches/ myalgia, muscle weakness, joint pain or balance problems Skin Skin: Negative redness, non-healing lesions, rash, unusual bruising, skin ulcer, wounds, jaundice or other Neuro Neuro: Negative for dizziness, lightheadedness, near syncope, syncope, orthostatic symptoms, frequent falls, headache(s), weakness, confusion, memory loss, restless legs, blurry vision, double vision, vertigo, seizures, lack of coordination or other Lars Hematologic/Lymphatic: Negative for easy bleeding, easy bruising, enlarged lymph nodes or other Endo Endo: Negative for fatigue, cold intolerance, heat intolerance, excessive sweating, flushing, increased thirst/drinking, increased hunger, hair loss, hair growth or other Psych Psych: Negative for anxiety, depression, thoughts of harming anyone, thoughts of harming yourself, visual hallucinations, panic attacks or audible hallucinations Allergy Allergy/Immunology: Negative for throat swelling, Negative for tongue swelling, Negative for hives, Negative for rash, Negative for lip swelling Cardiology Exam Const Appearance: cooperative, healthy appearing and no acute distress Nutritional Appearance: well nourished Orientation: alert, oriented x3 and oriented to person Head Head: normal to inspection, normocephalic and atraumatic Nose: external nose normal Face and Sinus: face symmetric Mouth: oral mucosae normal Eyes General: appearance normal, both eyes and all related structures Eyelids: eyelids normal Conjunctivae: conjunctivae normal Pupils: PERRL and normal by confrontation EOM: EOM intact bilaterally Neck Neck: normal visual inspection and full ROM Carotids: normal carotid upstroke Chest Chest inspection: normal inspection of the chest Auscultation: Bilateral: Clear to Auscultation Cardio Palpation: normal PMI Rate: regular rate Rhythm: regular rhythm Heart sounds: S1 normal and S2 normal GI GI: normal to inspection, no hepatosplenomegaly and bowel sounds present Neuro General: alert, awake, oriented x3, CN's II-XI intact bilaterally and moves all extremities Skin Skin: no rashes or lesions noted Extremities Pulses: Normal: Right Femoral Pulse, Left Femoral Pulse, Right Dorsalis Pedis Pulse, Left Dorsalis Pedis Pulse, Right Posterior Tibial Pulse, Left Posterior Tibial Pulse, Right Radial Pulse, Left Radial Pulse Lower Extremity Edema: None: Bilateral Psych Psychological: normal affect Assessment & Plan 1. Atherosclerotic heart disease of [place] coronary artery without angina pectoris I25.10 aspiration thrombectomy, balloon angioplasty and CONNOR to proximal LAD 07/02/2017 Plan 1. Coronary artery disease: Despite the patient's most recent negative stress test for ischemia in December 2018, he continues to have exertional chest pain symptoms, and appears to be getting worse over the last several weeks to months. Although this is dissimilar from his previous anginal symptoms when he presented with his myocardial infarction, which was midepigastric pain, I am concerned that this comes on with exertion and is relieved with rest. He does have some quality to the pain that it may be anxiety or stress induced as well. As the patient has had several stress test recently, and continues to have chest pain despite this and maximal medical therapy and appropriate blood pressure control, I recommended the patient undergo a diagnostic coronary angiogram to evaluate his LAD stent and other vessels. He will continue his baby aspirin, Coreg, Plavix, Lasix, Imdur and losartan as well as his potassium. The risk/benefits of the procedure were thoroughly explained the patient including specific attention to lack of on-site surgical back-up, the patient is agreed to proceed. Orders Orders: 12 Lead EKG performed by [facility] Today Left Heart Cath/COR/LV Percut Today Basic Metabolic Profile (BMP) Today Prothrombin Time w/INR Today CBC W/Diff, Automated Today Chest PA and Lateral Today 2. Hyperlipidemia E78.5 Plan 2. Hyperlipidemia: We are awaiting a repeat lipid profile. His most recent lipid profile in December 2018 and was treated adequately controlled LDL and HDL cholesterol. Continue Lipitor. 3. Return office in 6 months. This note was generated using a voice recognition system and there may be incorrect words, spelling or punctuation that were not noted when reviewing the office note prior to saving. Orders Orders: Left Heart Cath/COR/LV Percut Today Lipid Profile 07/30/19 Liver Profile 07/30/19 Plan Detail Other Orders Orders: 12 Lead EKG performed by [facility] Today I25.2, I25.5 Left Heart Cath/COR/LV Percut Today I25.118, I25.2, I25.5, Z95.5 Basic Metabolic Profile (BMP) Today Z95.5 Prothrombin Time w/INR Today Z95.5 CBC W/Diff, Automated Today Z95.5 Chest PA and Lateral Today I10, Z95.5 Other Medications Refilled: atorvastatin 20 mg PO QHS 90 tabs 3RF carvedilol 6.25 mg PO BID 180 tabs 3RF clopidogrel (Plavix) 75 mg PO QDAY 90 tabs 3RF furosemide 20 mg PO DAILY 90 tabs 3RF isosorbide mononitrate ER 30 mg PO DAILY 90 tabs 3RF losartan 50 mg PO DAILY 90 tabs 3RF potassium chloride ER 10 mEq PO DAILY 90 tabs 3RF Follow Up +6M (Luis Eduardo) Coding Level of Care Code Off vis,est,level 3 Diagnoses Atherosclerotic heart disease of [place] coronary artery without angina pectoris I25.10 Hyperlipidemia E78.5 Coding Level of Care Code Off vis,est,level 3 Diagnoses Atherosclerotic heart disease of [place] coronary artery without angina pectoris I25.10 Hyperlipidemia E78.5 Supplemental Info Supplemental Information Labs LDL Cholesterol 43 mg/dL (0-130) 01/01/19 HDL Cholesterol 51 mg/dL (40-) 01/01/19 Triglycerides 65 mg/dL (-199) 01/01/19 VLDL Cholesterol 13 mg/dL (5-40) 01/01/19 Diagnostics Electrocardiogram 12/18/18 Echocardiogram 01/01/19 Stress Echocardiogram 12/08/17 Stress Test Nuclear Medicine 12/18/18 Stress Test 12/18/18 Chest X-Ray 12/17/18 Pulmonary Pulmonary Function Test 02/06/18 07/27/19 1332 <Electronically signed by Lewis Hoff MD> Date Lewis Hoff MD Cosigner Signature: Date (if applicable) CC: Yoel Cortez MD ~ Interventional cardiology addendum: Patient seen and examined, and no interim changes to his history and physical. The risks/benefits of the procedure were thoroughly explained the patient and informed consent was obtained. Cardiac catheterization to follow.
--- NOTE | 2019-08-01 11:35 | CL.D_ITS ---
Patient Name: PATTY COFFMAN Study Date: 08/01/2019 Performing: Lewis Hoff MD Ht: 70.07 inches 178 cm : 1960 Wt: 193.98 lbs 87.99 kg Age: 59 Gender: male BSA: 2.06 PROCEDURE(S) PERFORMED HF43-OLJ/COR/LV [id number] RENAL ANGIO WITH HEART CATH CLINICAL PROFILE AND INDICATIONS Indications: Stable Known CAD Heart Failure: NYHA Class: 1, Newly Diagnosed: No, Heart Failure Type: Systolic Stress/Imaging Date: 12/28/2018Stress Test with SPECT MPI: Negative Angina Classification Anginal Classification w/in 2 Weeks: CCS I CAD Presentations: Unstable angina. Comorbidities/Risk Factors: Hypertension Dyslipidemia Prior CHF Prior PCI CONCLUSIONS Segmented LV systolic dysfunction- Moderate LVEF: by LV gram 45 % Depressed Left Ventricular systolic function - Moderate Non obstructive coronary arteries RECOMMENDATIONS Management as per referring Apprentice Increase cozaar to 50mg po bid. Manual sheath removal. DESCRIPTION OF PROCEDURE The patient arrived to the procedure lab. The risks and benefits of the procedure as well as a full d escription of our services here and current unavailability of surgical backup were fully explained to the patient and/or their significant other prior to the catheterization. The Timeout was completed, verifying the correct patient and procedure. The patient's procedural site was prepped and draped in the usual fashion. Local anesthetic was given subcutaneously to right groin region with Lidocaine 2%. Using a modified Seldinger technique, arterial access was obtained via the right femoral artery, a 4 Fr 45cm sheath was inserted Right Coronary Artery selective angiography was then performed in multip le views using a 4 Fr. 3DRC catheter. Left Coronary Artery selective angiography was performed in mul tiple views using a 4 Fr. JL5 catheter. Left Ventriculography was performed in ROSAS projection using a 4 Fr. Pigtail catheter. LV to AO pullback pressures were then recorded. CORONARY ANGIOGRAPHY DOMINANCE: Right Dominant LEFT HEART ASSESSMENT Left Ventricular Ejection Fraction: by LV Gram 45 % Anterior Hypokinesis - Moderate. Anterior Hypokinesis - Moderate LVEDP: 18 mmHg Elevated Left Ventricular End Diastolic Pressure Depressed Left Ventricular systolic function LEFT MAIN: Angiographically normal LEFT ANTERIOR DESCENDING ARTERY: PROX LAD: Previously placed stent is patent DISTAL LAD: Mild luminal irregularities less than 30% CIRCUMFLEX ARTERY: Angiographically normal RIGHT CORONARY ARTERY: Angiographically normal PERIPHERAL FINDINGS: Right Common Iliac Artery 60 % Stenosis COMPLICATIONS PROCEDURE MEDICATIONS Oxygen: 2 L/min via nasal cannula SUMMARY OF HEMODYNAMIC DATA Time AIR REST ECG 08:54:38 AO 139/78 (102) SA 11:14:55 LV 134/-9, 20 11:21:17 LV 132/-11, 16 11:21:23 LVp 139/-12, 15 11:21:37 AOp 139/79 (105) 11:21:42 Signed By Lewis Hoff MD On 08/01/2019 11:34:21 AM Lewis Hoff MD
== END 2019-08-01 15:50 | disposition home or self-care (01) ==
PROVIDERS: Family Provider Family Medicine; PCP Family Medicine; Referring Provider Internal Medicine Cardiovascular Disease; Visit Provider Internal Medicine Cardiovascular Disease
DX: I25.10 Atherosclerotic heart disease of native coronary artery without angina pectoris (principal); I25.5 Ischemic cardiomyopathy; I10 Essential (primary) hypertension; E78.5 Hyperlipidemia, unspecified; Z79.02 Long term (current) use of antithrombotics/antiplatelets; Z79.82 Long term (current) use of aspirin; Z79.899 Other long term (current) drug therapy; I25.2 Old myocardial infarction; Z87.891 Personal history of nicotine dependence; Z95.5 Presence of coronary angioplasty implant and graft
CPT/HCPCS: 36415; 71046; 75625; 80048; 80061; 80076; 85025; 85610; 93458; J7040; C1769; C1894; Q9967

== ENCOUNTER → 2021-04-03 09:17 | Outpatient (CLI) | payer OTHER, SELFPAY ==
[2017-07-04 12:04] VITALS: BMI 29.2
[2021-04-03 08:31] VITALS: BMI 29.1
[2021-04-03 10:36] LABS: AST(SGOT) 16 U/L (15-37); Alanine Aminotransfer ALT/SGPT 22 U/L (16-61); Albumin, Serum 3.7 g/dL (3.2-5.0); Alkaline Phosphatase 93 U/L (45-117); Bilirubin, Direct 0.19 mg/dL (0.00-0.30); Cholesterol 136 mg/dL (200); Globulin 3.5 g/dL (2.2-4.2); High Density Lipoprotein 57 mg/dL; Protein, Total 7.2 g/dL (6.4-8.2); Triglycerides 56 mg/dL; Very Low Density Lipoprotein 11 mg/dL (5-40)
== END ==
PROVIDERS: PCP Family Medicine; Referring Provider Internal Medicine Cardiovascular Disease; Visit Provider Internal Medicine Cardiovascular Disease
DX: E78.5 Hyperlipidemia, unspecified (principal); I25.2 Old myocardial infarction
CPT/HCPCS: 36415; 80061; 80076

== ENCOUNTER → 2021-10-03 09:37 | Outpatient (CLI) | payer OTHER, SELFPAY ==
[2017-07-04 12:04] VITALS: BMI 29.2
[2021-10-03 10:49] LABS: AST(SGOT) 13 U/L (15-37); Alanine Aminotransfer ALT/SGPT 30 U/L (16-61); Albumin, Serum 3.4 g/dL (3.2-5.0); Alkaline Phosphatase 94 U/L (45-117); Bilirubin, Direct 0.21 mg/dL (0.00-0.30); Cholesterol 116 mg/dL (200); Globulin 3.5 g/dL (2.2-4.2); High Density Lipoprotein 52 mg/dL; Protein, Total 6.9 g/dL (6.4-8.2); Triglycerides 61 mg/dL; Very Low Density Lipoprotein 12 mg/dL (5-40)
== END ==
PROVIDERS: PCP Family Medicine; Referring Provider Internal Medicine Cardiovascular Disease; Visit Provider Internal Medicine Cardiovascular Disease
DX: E78.5 Hyperlipidemia, unspecified (principal)
CPT/HCPCS: 36415; 80061; 80076

== ENCOUNTER → 2023-07-11 | Outpatient (CLI) | payer OTHER, SELFPAY ==
[2017-07-04 12:04] VITALS: BMI 29.2
[2023-07-11 11:58] LABS: ALB/GLOB Ratio 0.9 RATIO (0.9-2.4); AST(SGOT) 17 U/L (15-37); Alanine Aminotransfer ALT/SGPT 32 U/L (16-61); Albumin, Serum 3.2 g/dL (3.2-5.0); Alkaline Phosphatase 92 U/L (45-117); Anion Gap 4 (5-15); BUN 18 mg/dL (7-18); Calcium,Total 8.2 mg/dL (8.5-10.1); Chloride 111 mmol/L (98-107); Cholesterol 118 mg/dL (200); Creatinine, Serum 1.29 mg/dL (0.70-1.30); EST Glomerular Filtration Rate 60 mL/min (>60); Est Glom Filt Rate - Afr Amer 73 mL/min (>60); Globulin 3.6 g/dL (2.2-4.2); Glucose 105 mg/dL (74-106); High Density Lipoprotein 49 mg/dL; Potassium 4.1 mmol/L (3.5-5.1); Protein, Total 6.8 g/dL (6.4-8.2); Sodium Level 140 mmol/L (136-145); Triglycerides 78 mg/dL; Very Low Density Lipoprotein 16 mg/dL (5-40)
== END | disposition home or self-care (01) ==
PROVIDERS: PCP Family Medicine; Referring Provider Physician Assistant Medical; Visit Provider Physician Assistant Medical
DX: I10 Essential (primary) hypertension (principal); I25.5 Ischemic cardiomyopathy; E78.5 Hyperlipidemia, unspecified; Z95.5 Presence of coronary angioplasty implant and graft
CPT/HCPCS: 36415; 80053; 80061

== ENCOUNTER 2024-01-23 20:13 | Emergency (ER) | payer OTHER, SELFPAY ==
[2017-07-04 12:04] VITALS: BMI 29.2
[2024-01-23 20:14] VITALS: BP 160/95; PULSE 80; PULSE 84; RESP 16; TEMP 36.8; O2SAT 94; O2SAT 96; BMI 28.4
--- NOTE | 2024-01-23 20:53 | US_ITS ---
EXAM: US DUPLEX LEFT LOWER EXTREMITY VEINS CLINICAL INDICATION: LT POSTERIOR KNEE PAIN - TODAY TECHNIQUE: Real-time duplex ultrasound scan of the left lower extremity veins integrating B-mode two-dimensional vascular structure, Doppler spectral analysis, color flow Doppler imaging and compression. COMPARISON: No relevant prior studies available. FINDINGS: DEEP VEINS: No significant abnormality. No DVT in the visualized common femoral, femoral, proximal deep femoral or popliteal veins. The veins demonstrate normal color flow, are normally compressible, with normal phasic flow and/or augmentation response. SUPERFICIAL VEINS: No significant abnormality. No thrombus in the visualized great saphenous vein. SOFT TISSUES: There is a subcentimeter cyst within the left popliteal fossa soft tissues suggesting a small Rosas''s cyst. US/Venous Duplex Imag/Limited/Uni IMPRESSION: There is a subcentimeter cyst within the left popliteal fossa soft tissues suggesting a small Rosas''s cyst. There is no evidence of a DVT. Electronically Signed: He Matias DO at 21:31 EDT ,
--- NOTE | 2024-01-23 21:00 | ED.VIS.LOWEX ---
HPI History of Present Illness Chief Complaint: Lower Extremity Injury Narrative Narrative: 63-year-old male presenting with left leg pain. He states it is behind the left knee. 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 Denies any direct trauma. Patient has not had any recent travel, bedrest, immobilization, history of cancer, exogenous hormone use, surgery, history of DVT/PE. Patient states that he was concerned he had a blood clot in the left leg because he has a history of cardiac arrest secondary to an LAD. Patient states he has not taken anything for pain prior to arrival because he was sure it was something more than musculoskeletal. Patient denies any numbness or tingling. Denies any skin changes. He is not having any chest pain or shortness of breath. He is not anticoagulated but he is on Plavix. [facility] Medical History Atherosclerotic heart disease of [place] coronary artery without angina pectoris Essential (primary) hypertension History of cardiac arrest History of pneumothorax History of ST elevation myocardial infarction (STEMI) (07/02/17) Hyperlipidemia Ischemic cardiomyopathy Old anteroseptal myocardial infarction (07/02/17) Tobacco abuse Home Medications carvedilol 12.5 mg tablet 12.5 mg PO BID #180 tabs 06/24/23 [Rx Last Taken Unknown] losartan 50 mg tablet 50 mg PO DAILY #90 tabs 07/11/23 [Rx Last Taken Unknown] clopidogrel 75 mg tablet (Plavix) 75 mg PO QDAY #90 tabs 08/08/23 [Rx Last Taken Unknown] ezetimibe 10 mg tablet (Zetia) 10 mg PO DAILY #90 tabs 08/08/23 [Rx Last Taken Unknown] Allergy/AdvReac Type Severity Reaction Status Date / Time atorvastatin AdvReac Intermediate weakness Verified 01/23/24 20:16 and myalgias Family History Father CAD (coronary artery disease) Mother History of heart valve replacement Brother CVA (cerebral vascular accident) Aunt CAD (coronary artery disease) Uncle CAD (coronary artery disease) Surgical History History of coronary artery stent placement (07/02/17) History of left heart catheterization (08/01/19) Social History Smoking Status: Former smoker second hand exposure: Yes alcohol intake: never substance use type: does not use caffeine: Yes what type of physical activity do you participate in: walking frequency: daily ROS ROS ED Constitutional Constitutional ED: Denies chills, fever(s) or sweats Eyes Eyes: Denies blurry vision or change in vision ENT ENT ED: Denies ear pain or sore throat Cardiovascular Cardiovascular: Denies chest pain, palpitations or racing heartbeat Respiratory/Chest Respiratory/Chest: Denies cough, dyspnea or sputum Gastrointestinal Gastrointestinal: Denies abdominal pain, constipation, diarrhea, nausea or vomiting Genitourinary Genitourinary ED: Denies dysuria, hematuria or urinary frequency Musculoskeletal Musculoskeletal: Reports other Details: . Left leg pain ; Denies arthralgias, myalgias or neck pain Integumentary Denies abscess, Abrasions or rash Neurologic Neurologic: Denies headache(s), paresthesias or weakness Psychiatric Psychiatric: Denies anxiety, depression, suicidal ideation or suicidal thoughts Endocrine Endocrinology: Denies polydipsia or polyuria EXAM Physical Exam Const Vital Signs: 01/23/24 20:14 01/23/24 20:14 01/23/24 21:59 Temperature 98.2 F 98.3 F 97 F L Temperature Source Temporal Temporal Pulse Rate 80 84 79 Respiratory Rate 16 16 18 Blood Pressure 160/95 H 160/95 H 148/89 H Blood Pressure Mean 116 116 108 Pulse Ox 94 96 99 Oxygen Delivery Method Room Air Room Air Positive well nourished General Appearance ED: NAD HEENT Reports moist mucous membranes normocephalic Resp normal respiratory effort Cardio regular rate and regular rhythm Extremity Extremity Narrative: There is tenderness to palpation at the superior aspect of the popliteal fossa on the left. There are no masses. Compartments are soft in the lower extremity. No cords palpated. Neurovascular intact. No skin changes. No cellulitic change. Left knee has full range of motion in flexion extension and there is no ligamentous laxity. Neuro oriented x3 Sensorium / Orientation: alert Motor Exam: strength 5/5 throughout Psych mental status grossly normal Skin no wounds MDM MDM MDM Narrative Medical decision making narrative: Patient has wells dvt score of 1. Patient's exam is unremarkable with exception of tenderness to palpation at the superior aspect of the popliteal fossa. No cords palpated. Compartments are all soft. Neurovascular intact. Patient given ibuprofen and DVT study was obtained. DVT study was negative for DVT. Likely has a small Rosas's cyst. Patient counseled on findings. All questions were answered. He is discharged home in stable condition. Impression: 1. Left knee Rosas's cyst Lab Data Attestation: I reviewed the patient's lab results. Radiography Diagnostic Testing: Clinical Impression(s) from Imaging Studies Venous Duplex 01/23/24 20:53 IMPRESSION: There is a subcentimeter cyst within the left popliteal fossa soft tissues suggesting a small Rosas''s cyst. There is no evidence of a DVT. Electronically Signed: He Matias DO at 21:31 EDT , Discharge Plan Triage Chief Complaint: Lower Extremity Injury ED Provider: Héctor No Dx/Rx/DC Orders Instructions: ED Knee Pain of Uncertain Cause Prescriptions: No Action losartan 50 mg tablet 50 mg PO DAILY Qty: 90 3RF Patient Comments: blood pressure/heart carvedilol 12.5 mg tablet 12.5 mg PO BID Qty: 180 3RF Patient Comments: blood pressure/heart ezetimibe [Zetia] 10 mg tablet 10 mg PO DAILY Qty: 90 3RF clopidogrel [Plavix] 75 mg tablet 75 mg PO QDAY Qty: 90 3RF Primary Care Provider: Yoel Cortez Referrals: Yoel Cortez DO [Primary Care Provider] - Disposition Disposition: Home, Self Care Discharge Date/Time: 01/23/24 22:00
[2024-01-23] MEDS: Ibuprofen 600 MG Tablet PO (21:32)
[2024-01-23 21:59] VITALS: BP 148/89; PULSE 79; RESP 18; TEMP 36.1; O2SAT 99
== END 2024-01-23 22:00 | disposition home or self-care (01) ==
PROVIDERS: Emergency Provider Student in an Organized Health Care Education/Training Program; PCP Family Medicine; Visit Provider Student in an Organized Health Care Education/Training Program
DX: M71.22 Synovial cyst of popliteal space [Baker], left knee (principal); I25.5 Ischemic cardiomyopathy; I25.10 Atherosclerotic heart disease of native coronary artery without angina pectoris; I10 Essential (primary) hypertension; E78.5 Hyperlipidemia, unspecified; I25.2 Old myocardial infarction; Z79.02 Long term (current) use of antithrombotics/antiplatelets; Z79.899 Other long term (current) drug therapy; Z87.891 Personal history of nicotine dependence; Z95.5 Presence of coronary angioplasty implant and graft
CPT/HCPCS: 93971; 99282

== ENCOUNTER 2024-06-11 20:29 | Inpatient (IN) | payer OTHER, SELFPAY ==
[2017-07-04 12:04] VITALS: BMI 29.2
[2024-06-11] VITALS (9 sets, daily range): BP systolic 125–157; BP diastolic 73–115; PULSE 72–98; RESP 20–23; TEMP 37; O2SAT 86–96; BMI 30.4
--- NOTE | 2024-06-11 20:44 | RAD_ITS ---
STUDY: X-RAY CHEST REASON FOR EXAM: Male, 64 years old. chest pain TECHNIQUE: AP portable COMPARISON: July 27, 2019 FINDINGS: Mild nonspecific bilateral perihilar interstitial infiltrate or pulmonary edema. There is no demonstrated pleural abnormality. Normal size heart. Normal mediastinum and ole. Normal visualized pulmonary arteries. Normal visualized aortic arch and descending thoracic aorta. Normal visualized thoracic spine. Normal visualized ribs, clavicles, and shoulders. There is no demonstrated abnormality of the visualized soft tissue structures of the upper abdomen. RAD/Chest 1 View (Portable) IMPRESSION: Mild nonspecific bilateral perihilar interstitial infiltrate or pulmonary edema Electronically Signed: Chris Cleaning MD at 21:32 EDT ,
--- NOTE | 2024-06-11 20:44 | EKG12_ITS ---
Test Reason : CP Blood Pressure : / mmHG Vent. Rate : 070 BPM Atrial Rate : 070 BPM P-R Int : 172 ms QRS Dur : 078 ms QT Int : 402 ms P-R-T Axes : 061 -23 071 degrees QTc Int : 434 ms Normal sinus rhythm Anteroseptal infarct (cited on or before 17-DEC-2018) T wave abnormality, consider lateral ischemia Abnormal ECG Confirmed by Gómez Osorio ([id number]), tape editor KARENA FREITAS ([id number]) on 06/13/2024 8:21:23 AM Referred By: KELECHI Confirmed By:Gómez Osorio
--- NOTE | 2024-06-11 20:50 | EDS_ITS ---
HPI History of Present Illness Chief Complaint: Chest Pain Informant: patient Onset/Context/Timing Onset: Today and Hours (2) Activity at onset: gradual Timing: Continuous Quality: Positive for Sharp Location: Substernal (Lower substernal and epigastric area) Worsened By: Nothing Relieved By: Nothing Associated Symptoms: Positive for Nausea; Negative for Vomiting, Diaphoresis, Dyspnea, Cough, Fever, Lightheadedness, Acid Reflux or Palpitations Narrative Narrative: Patient presents with chest pain and epigastric pain that began today. Patient states it began approximately 2 hours prior to arrival. Patient states it has gradually gotten worse. Patient describes the pain as sharp. Patient states the pain is constant. Patient states nothing makes it better and nothing makes it worse. Patient admits to some nausea but denies any vomiting. Patient denies any shortness of breath or cough. Patient denies any diaphoresis. Patient denies any pain in his neck or back. CVD Risk Factors: Positive for Hypertension, Hypercholesterolemia and Smoking; Negative for Diabetes or Family History 1' </=55 PE Risk Factors: Negative for Recent Travel/Surgery, Recent Immobilization, Pr ior DVT or PE, Cancer or OCP + Smoking + >/=35 PFSH PFSH Medical History Old anteroseptal myocardial infarction (07/02/17) Essential (primary) hypertension History of pneumothorax Ischemic cardiomyopathy Hyperlipidemia Tobacco abuse Atherosclerotic heart disease of [place] coronary artery without angina pectoris History of ST elevation myocardial infarction (STEMI) (07/02/17) History of cardiac arrest Home Medications ?Medication ?Instructions ?Recorded ?Last Taken ?Type carvedilol 12.5 mg tablet 12.5 mg PO BID #180 tabs 06/24/23 06/11/24 Rx clopidogrel 75 mg tablet (Plavix) 75 mg PO QDAY #90 tabs 08/08/23 06/11/24 Rx losartan 50 mg tablet 50 mg PO DAILY #90 tabs 02/20/24 06/11/24 Rx ezetimibe 10 mg tablet (Zetia) 10 mg PO DAILY #90 tabs 06/11/24 06/11/24 Rx Allergy/AdvReac Type Severity Reaction Status Date / Time No Known Allergies Allergy Verified 06/11/24 21:53 Family History Father CAD (coronary artery disease) Mother History of heart valve replacement Brother CVA (cerebral vascular accident) Aunt CAD (coronary artery disease) Uncle CAD (coronary artery disease) Surgical History History of coronary artery stent placement (07/02/17) History of left heart catheterization (08/01/19) Social History Smoking Status: Current some day smoker tobacco type: cigarettes second hand exposure: Yes alcohol intake: never substance use type: does not use caffeine: Yes what type of physical activity do you participate in: walking frequency: daily ROS ROS ED Constitutional Constitutional ED: Denies chills or fever(s) Eyes Eyes: Denies blurry vision or change in vision ENT ENT ED: Denies rhinorrhea or sore throat Cardiovascular Cardiovascular: Reports chest pain; Denies palpitations Respiratory/Chest Respiratory/Chest: Denies cough or dyspnea Gastrointestinal Gastrointestinal: Reports nausea; Denies vomiting Genitourinary Genitourinary ED: Denies dysuria or hematuria Musculoskeletal Musculoskeletal: Denies back pain or neck pain Integumentary Denies abscess or rash Neurologic Neurologic: Denies headache(s) or weakness Allergic/Immunologic Allergic/Immunologic ED: Denies mouth swelling or urticaria EXAM Physical Exam Const Vital Signs: 06/11/24 20:31 06/11/24 20:34 06/11/24 20:35 Temperature 98.6 F Temperature Source Temporal Pulse Rate 72 Respiratory Rate 20 H Respiratory Effort Labored Blood Pressure 157/115 H Blood Pressure Mean 129 Pulse Ox 96 Oxygen Delivery Method Oxygen Flow Rate (L/min) 06/11/24 21:02 06/11/24 21:38 06/11/24 22:02 Temperature Temperature Source Pulse Rate 73 98 Respiratory Rate 21 H 23 H Respiratory Effort Blood Pressure 127/90 H Blood Pressure Mean 102 Pulse Ox 96 94 Oxygen Delivery Method Room Air Room Air Oxygen Flow Rate (L/min) 06/11/24 22:47 06/11/24 23:00 06/11/24 23:14 Temperature Temperature Source Pulse Rate 74 Respiratory Rate Respiratory Effort Blood Pressure 125/91 H 142/81 H 126/73 H Blood Pressure Mean 101 90 Pulse Ox 86 Oxygen Delivery Method Room Air Oxygen Flow Rate (L/min) 06/11/24 23:15 Temperature Temperature Source Pulse Rate Respiratory Rate Respiratory Effort Blood Pressure Blood Pressure Mean Pulse Ox 95 Oxygen Delivery Method Nasal Cannula Oxygen Flow Rate (L/min) 2 Positive well nourished and well developed General Appearance ED: well developed and NAD HEENT Reports moist mucous membranes Neck supple and no JVD Resp normal respiratory effort and clear to auscultation bilaterally Cardio regular rate and regular rhythm GI soft to palpation and non-distended GI Narrative: There is tenderness over the epigastric area. There is no rebound or guarding noted. Neuro oriented x3, CN's II-XII intact bilaterally and no sensory deficits noted Sensorium / Orientation: awake Motor Exam: strength 5/5 throughout Psych mental status grossly normal Heart Score History: Slightly/Non-Suspicious ECG: Nonspecific Repolarization Age: >45 - <65 years Risk Factors: >/= 3 Risk Factors or History of CAD Score: 4 MDM MDM MDM Narrative Medical decision making narrative: Differential diagnosis includes cardiac dysrhythmia, cardiac ischemia, pneumonia, pneumothorax, pancreatitis, peptic ulcer disease, cholecystitis, cholelithiasis, pyelonephritis, aortic dissection, and urinary tract infection. EKG will be obtained to assess for cardiac dysrhythmia and cardiac ischemia. CT scan of the abdomen pelvis will be obtained to assess for pancreatitis and aortic dissection. Chest x-ray will be obtained to assess for pneumonia and widened mediastinum. CBC will be obtained to assess for leukocytosis and anemia. Basic metabolic profile will be obtained to assess for electrolyte abnormality and renal function. Liver profile will be obtained to assess for hepatic function. High-sensitivity troponin will be obtained to assess for cardiac ischemia. PT was INR and PTT will be obtained to assess for coagulopathy. Lipase will be obtained to assess for pancreatitis. Lactate will be obtained to assess for sepsis. Urinalysis will be obtained to assess for urinary tract infection and hematuria. Lab Data Attestation: I reviewed the patient's lab results. Lab results narrative: CBC was reviewed. There is a mild leukocytosis of 11.5. Platelets were elevated at 605. PT with INR and PTT were reviewed. Pro time was 15.3 and INR is 1.2. PTT was normal at 33.9. Basic metabolic profile was reviewed. BUN was slightly elevated at 19 and creatinine was slightly elevated at 1.31. Lipase was reviewed and was normal at 32. Initial high-sensitivity troponin was reviewed and was elevated at 146. Serum lactate was reviewed and was normal at 0.9. Labs: Laboratory Results - last 24 hr 06/11/24 06/11/24 06/11/24 20:45 21:06 22:50 WBC 11.5 H RBC 4.34 L Hgb 14.1 Hct 42.0 MCV 96.8 H MCH 32.5 H MCHC 33.6 RDW Std Deviation 49.6 H RDW Coeff of Marlene 13.9 Plt Count 605 H MPV 9.8 Immature Gran % (Auto) 0.400 Neut % (Auto) 61.0 Lymph % (Auto) 21.9 [place] % (Auto) 11.9 H Eos % (Auto) 4.1 Baso % (Auto) 0.7 Absolute Neuts (auto) 7.0 Absolute Lymphs (auto) 2.53 Nucleated RBC % 0 PT 15.3 H INR 1.2 APTT 33.9 Sodium 139 Potassium 4.0 Chloride 109 H Carbon Dioxide 26.0 Anion Gap 4 L BUN 19 H Creatinine 1.31 H Estim Creat Clear Calc 67.24 Est GFR (MDRD) Af Amer 71 Est GFR (MDRD) Non-Af 59 L BUN/Creatinine Ratio 14.5 Glucose 116 H Lactic Acid 0.9 Calcium 8.6 Total Bilirubin 0.50 Direct Bilirubin 0.15 AST 19 ALT 28 Alkaline Phosphatase 87 Troponin I High Sens 146 H* Total Protein 6.6 Albumin 3.4 Globulin 3.2 Lipase 32 Urine Color Yellow Urine Clarity Clear Urine pH 7.0 Ur Specific [place] 1.010 Urine Protein Negative Urine Glucose (UA) Normal Urine Ketones Negative Urine Occult Blood Negative Urine Nitrite Negative Urine Bilirubin Negative Urine Urobilinogen Normal Ur Leukocyte Esterase Negative Urine RBC 0 SEEN Urine WBC 0 SEEN Ur Squamous Epith Cells 0 SEEN Urine Bacteria 0 SEEN Urine Mucus 0 SEEN 06/11/24 23:00 WBC RBC Hgb Hct MCV MCH MCHC RDW Std Deviation RDW Coeff of Marlene Plt Count MPV Immature Gran % (Auto) Neut % (Auto) Lymph % (Auto) [place] % (Auto) Eos % (Auto) Baso % (Auto) Absolute Neuts (auto) Absolute Lymphs (auto) Nucleated RBC % PT INR APTT Sodium Potassium Chloride Carbon Dioxide Anion Gap BUN Creatinine Estim Creat Clear Calc Est GFR (MDRD) Af Amer Est GFR (MDRD) Non-Af BUN/Creatinine Ratio Glucose Lactic Acid Calcium Total Bilirubin Direct Bilirubin AST ALT Alkaline Phosphatase Troponin I High Sens 190 H* Total Protein Albumin Globulin Lipase Urine Color Urine Clarity Urine pH Ur Specific [place] Urine Protein Urine Glucose (UA) Urine Ketones Urine Occult Blood Urine Nitrite Urine Bilirubin Urine Urobilinogen Ur Leukocyte Esterase Urine RBC Urine WBC Ur Squamous Epith Cells Urine Bacteria Urine Mucus Radiography Diagnostic Testing: Clinical Impression(s) from Imaging Studies Chest X-Ray 06/11/24 20:44 IMPRESSION: Mild nonspecific bilateral perihilar interstitial infiltrate or pulmonary edema Electronically Signed: Chris Cleaning MD at 21:32 EDT , Abdomen/Pelvis CT 06/11/24 20:59 IMPRESSION: Findings which may be consistent with nonspecific gastroduodenitis.. Mild diffuse ileus with fecal retention in colon Mild nonspecific diffuse left adrenal enlargement with stranding in the adjacent fat possibly due to inflammatory changes. Clinical correlation recommended Electronically Signed: Chris Cleaning MD at 22:40 EDT , Portable 1 view chest x-ray was obtained. On my independent interpretation, lung sanders are clear. There is normal cardiac silhouette. Bony thorax is normal. There is no acute process noted. Radiologist also interpreted the x- ray and agrees. CT scan of the abdomen pelvis was obtained. There is no evidence of aortic dissection or aneurysm. There is a mild ileus noted with fecal retention in the colon. There is nonspecific gastroduodenitis. This was interpreted by the radiologist was also independently reviewed by myself. EKG Initial EKG: Attestation: I personally reviewed and interpreted this EKG as follows: Interpretation: Sinus Rhythm (70) and Non-Specific ST Changes Comments: EKG was obtained. On my independent interpretation, it shows normal sinus rhythm with a rate of 70. AR interval was 172 ms. QRS interval was 78 ms. QTc interval was normal at 434 ms. There is borderline left axis deviation at -23. There are nonspecific ST-T wave changes in the anterior and lateral leads. Prior EKG tracings: available for review Prior: Unchanged (07/27/2019) Management Discussion w/another healthcare provider: Hospitalist and Recruitment Specialist (Dr. Osorio from cardiology) Treatment and Re-Evaluation :: Patient was given IV fluids, morphine, and Zofran. Patient was still having pain. Patient was given aspirin and sublingual nitroglycerin. Patient had no improvement with this. Case was discussed with Dr. Osorio from cardiology. He recommended giving the patient sublingual nitroglycerin and if this helped, placed the patient on nitroglycerin paste. Patient had no improvement with the nitroglycerin. Patient was given a dose of Dilaudid and a dose of Lovenox. Case was discussed with the hospitalist. He will admit the patient to his service. Patient and family understood and were agreeable with the plan. All questions were answered. Critical Care Time Critical Care Time: Yes Critical care time (excluding procedures): 30-74 minutes (32), Including time spent:, Discussing w/Patient &/or Family/Tong Setter, Discussing w/Consultants, Arranging Admission or Transfer and Performing Direct Patient Care at Bedside Discharge Plan Dx/Rx/DC Orders Clinical Impression: Non-STEMI (non-ST elevated myocardial infarction), History of coronary artery stent placement, Essential (primary) hypertension Disposition Disposition: Acute Care Hospital [facility]
[2024-06-11 20:57] LABS: Absolute Lymphocyte Count 2.53 X10^3/uL (0.83-4.51); Basophil# 0.08 X10^3/uL; Basophil% 0.7 % (0-1); Eosinophil# 0.47 X10^3/uL; Eosinophils% 4.1 % (0-5); Hemoglobin 14.1 g/dL (13.0-16.5); Lymphocyte # 2.53 X10^3/ul (0.83-4.51); Lymphocyte % 21.9 % (19-41); Mean Corp Hgb Conc 33.6 g/dL (32-36); Mean Corpuscular Hgb 32.5 pg (27.0-32.0); Mean Corpuscular Volume 96.8 fL (80-94); Mean Platelet Vol. 9.8 fl (6.2-12.0); Monocyte# 1.37 X10^3/uL; Monocyte% 11.9 % (0-10); NRBC Flagged by Analyzer 0 % (0-5); Neutrophil # 7.04 X10^3/uL (2.7-7.7); Platelet Count 605 K/mm3 (150-450); RBC Distribution Width CV 13.9 % (11.6-14.6); RBC Distribution Width SD 49.6 fl (35.1-43.9); Red Blood Count 4.34 M/mm3 (4.6-6.2); White Blood Count 11.5 K/mm3 (4.4-11.0)
--- NOTE | 2024-06-11 20:59 | CT_ITS ---
STUDY: CT ABDOMEN AND PELVIS WITH CONTRAST REASON FOR EXAM: Male, 64 years old. Abdominal pain RADIATION DOSAGE (If Supplied By Facility): CTDIvol = ( 17.16 ) mGy, DLP = ( 1201.60 ) mGycm TECHNIQUE: Transaxial images were obtained from the dome of the diaphragm to the symphysis pubis without oral contrast. IV 100mL Isovue-[id number] was administered. Sagittal and coronal images were reconstructed. Individualized dose optimization techniques were used for this CT. COMPARISON: None. FINDINGS: Mild atelectasis within the dependent portion of both lungs. Heart size is normal. There is a coronary artery stent. Mild nonspecific fatty infiltrated liver.. There are multiple cysts. Bile ducts are not dilated Normal gallbladder and extrahepatic biliary system. Normal spleen. Normal pancreas. Right adrenal is normal. There is mild diffuse prominence of the left adrenal with stranding in the adjacent fat possibly due to inflammatory changes. Normal right kidney. There is multifocal cortical scarring left kidney consistent with inflammatory disease. Kidney is not obstructed and there is no renal mass Concentric thickening of the coto of the distal stomach at the gastroduodenal junction consistent with nonspecific gastroduodenitis. Mild ileus with diffuse fecal retention in the colon. Diverticular changes of the descending and sigmoid colon without evidence for acute diverticulitis. No evidence for acute appendicitis Atherosclerotic changes of the aorta without evidence for aneurysm. Normal inferior vena cava. Normal retroperitoneum. Normal urinary bladder. Nonspecific enlargement of the prostate Small fat-containing umbilical hernia.. There is also a fat-containing left inguinal hernia Lumbar spine demonstrates mild spondylosis CT/Abdomen/Pelvis W IV Cont ONLY IMPRESSION: Findings which may be consistent with nonspecific gastroduodenitis.. Mild diffuse ileus with fecal retention in colon Mild nonspecific diffuse left adrenal enlargement with stranding in the adjacent fat possibly due to inflammatory changes. Clinical correlation recommended Electronically Signed: Chris Cleaning MD at 22:40 EDT ,
[2024-06-11] MEDS: Morphine 4 MG/ML Syringe IV (21:07)
[2024-06-11] MEDS: Ondansetron 4 MG/2 ML Vial IV (21:07)
[2024-06-11] MEDS: 0.9% Normal Saline (1000mL) 1,000 ML 1000 ML IV (21:08)
[2024-06-11 21:26] LABS: Anion Gap 4 (5-15); BUN 19 mg/dL (7-18); BUN/Creat Ratio 14.5 RATIO (10-20); Calcium,Total 8.6 mg/dL (8.5-10.1); Chloride 109 mmol/L (98-107); Creatinine, Serum 1.31 mg/dL (0.70-1.30); EST Glomerular Filtration Rate 59 mL/min (>60); Est Glom Filt Rate - Afr Amer 71 mL/min (>60); Estimated Creatinine Clearance 67.24 ml/min; Glucose 116 mg/dL (74-106); Sodium Level 139 mmol/L (136-145); Troponin-I HS (w/2H Reflex) 146 pg/mL (3.0-78.0)
[2024-06-11 21:34] LABS: International Normalized Ratio 1.2; Prothrombin Time (Protime)PT. 15.3 SECONDS (11.7-14.9)
[2024-06-11 21:35] LABS: Partial Thromboplast Time 33.9 Seconds (24.1-36.2)
[2024-06-11 21:36] LABS: AST(SGOT) 19 U/L (15-37); Alanine Aminotransfer ALT/SGPT 28 U/L (16-61); Albumin, Serum 3.4 g/dL (3.2-5.0); Alkaline Phosphatase 87 U/L (45-117); Bilirubin, Direct 0.15 mg/dL (0.00-0.30); Globulin 3.2 g/dL (2.2-4.2); Lipase 32 U/L (13-75); Protein, Total 6.6 g/dL (6.4-8.2)
[2024-06-11 21:46] LABS: Lactic Acid 0.9 mmol/L (0.4-1.9)
[2024-06-11] MEDS: Aspirin 81 MG TAB.CHEW 324 MG PO (22:45)
[2024-06-11] MEDS: Nitroglycerin SL (ED/IMG/CATH) 0.4 MG TABLET SL ×2 (22:47→23:55)
[2024-06-11 22:52] LABS: Reflex Troponin-HS? (from REC) Y
[2024-06-11 22:57] LABS: Bacteria 0 SEEN /hpf (None Seen); Mucous, Urine 0 SEEN /hpf (<or=2+); Red Blood Cells-Urine 0 SEEN /hpf (0-5); Squamous Epithelial Cells - UA 0 SEEN /hpf (0-5); White Blood Cells 0 SEEN /hpf (0-5)
[2024-06-11 23:08] LABS: Color, Urine Yellow (Yellow); Glucose, Dipstick Normal (Normal); Ketone-Dipstick Negative (Negative); Leukocyte Esterase-Dipstick Negative /ul (Negative); Nitrite-Dipstick Negative (Negative); Occult Blood-Urine Negative /ul (Negative); Protein-Dipstick Negative (Negative); Urine Bilirubin Dipstick Negative (Negative); Urine Clarity Clear (Clear); Urine Urobilinogen Normal (Normal)
--- NOTE | 2024-06-11 23:15 | HP.PCM.HOS_ITS ---
[facility] - General General Date of Admission: 06/11/24 Date of Service: 06/11/24 Chief Complaint: Chest Pain. HPI Narrative PATTY COFFMAN, is a 64 M with a past medical history of essential hypertension, hyperlipidemia; on Ezetimibe, obesity; with BMI of 30.5 this admission, PETERSON, history of tobacco abuse, CAD; s/p STEMI with cardiac arrest and subsequent LAD CONNOR (2017); still on Plavix, history of ischemic cardiomyopathy, history of PTX and OA who presents to [facility] ER complaining of chest pain. Mr. Coffman reports his symptoms began approximately 2 hours prior to arrival with the abrupt-onset of chest pain that was substernal and radiating into his epigastrium, severe, 8-9/10, constant, sharp and pain only improved after two SL NTG in the ER. He also admits to associated nausea but he denies vomiting. He denies related fever, chills, diaphoresis, SOB or cough but he does admit his pain is nearly identical to the angina that heralded his previous stent placement. He states he has been taking his medications as prescribed. In the ER he was noted to have an initial elevated troponin of 146 pg/mL present on admission followed by a second troponin that increased to 190 pg/mL consistent with suspected NSTEMI complicated by CT evidence of gastroduodenitis and mild diffuse ileus with fecal retention in colon along with nonspecific Left adrenal enlargement and he was then admitted to the PCU for ongoing care for a stay that is expected to extend beyond 2 midnights. [facility] Medical History Old anteroseptal myocardial infarction (07/02/17) Essential (primary) hypertension History of pneumothorax Ischemic cardiomyopathy Hyperlipidemia Tobacco abuse Atherosclerotic heart disease of [place] coronary artery without angina pectoris History of ST elevation myocardial infarction (STEMI) (07/02/17) History of cardiac arrest Home Medications ?Medication ?Instructions ?Recorded ?Last Taken ?Type carvedilol 12.5 mg tablet 12.5 mg PO BID #180 tabs 06/24/23 06/11/24 Rx clopidogrel 75 mg tablet (Plavix) 75 mg PO QDAY #90 tabs 08/08/23 06/11/24 Rx losartan 50 mg tablet 50 mg PO DAILY #90 tabs 02/20/24 06/11/24 Rx ezetimibe 10 mg tablet (Zetia) 10 mg PO DAILY #90 tabs 06/11/24 06/11/24 Rx Allergy/AdvReac Type Severity Reaction Status Date / Time No Known Allergies Allergy Verified 06/11/24 21:53 Family History Father CAD (coronary artery disease) Mother History of heart valve replacement Brother CVA (cerebral vascular accident) Aunt CAD (coronary artery disease) Uncle CAD (coronary artery disease) Surgical History History of coronary artery stent placement (07/02/17) History of left heart catheterization (08/01/19) Social History Smoking Status: Current some day smoker tobacco type: cigarettes second hand exposure: Yes alcohol intake: never substance use type: does not use caffeine: Yes what type of physical activity do you participate in: walking frequency: daily ROS ROS Narrative Review of Systems: Constitutional: Patient denies fever, chills or weight loss. Eyes: Patient denies changes in vision or discharge from eyes. ENT: Patient denies runny nose, sore throat or ear pain. CV: Patient admits to chest pain as per HPI but he denies palpitations or heart racing. Resp: Patient denies SOB or cough. GI: Patient admits to pain in epigastrium with nausea but he denies vomiting. : Patient denies dysuria or hematuria. MSK: Patient denies arthralgias or myalgias. Skin: Patient denies rash, abscess or jaundice. Psych: Patient denies symptoms of uncontrolled depression or anxiety. Neuro: Patient denies headache, paresthesias or focal neurologic weakness. Allergy: Patient denies lip swelling, tongue swelling or urticaria. Hematology: Patient denies easy bleeding or easy bruisability. Endocrinology: Patient denies polyuria, polydipsia and polyphagia. 14 point ROS otherwise negative except for positives noted above. Vital Signs Vital Signs Vital Signs: 06/11/24 20:31 06/11/24 20:34 06/11/24 20:35 Temperature 98.6 F Temperature Source Temporal Pulse Rate 72 Respiratory Rate 20 H Respiratory Effort Labored Blood Pressure 157/115 H Blood Pressure Mean 129 Pulse Ox 96 Oxygen Delivery Method 06/11/24 21:02 06/11/24 21:38 06/11/24 22:02 Temperature Temperature Source Pulse Rate 73 98 Respiratory Rate 21 H 23 H Respiratory Effort Blood Pressure 127/90 H Blood Pressure Mean 102 Pulse Ox 96 94 Oxygen Delivery Method Room Air Room Air 06/11/24 22:47 06/11/24 23:00 Temperature Temperature Source Pulse Rate 74 Respiratory Rate Respiratory Effort Blood Pressure 125/91 H 142/81 H Blood Pressure Mean 101 Pulse Ox Oxygen Delivery Method Weight Weight: 212 lb 8.41 oz Body Mass Index (BMI) 30.4 Physical Exam Const alert, oriented x3, average body habitus and healthy appearing Constitutional Narrative: Mild distress noted. General Appearance: cooperative HEENT normocephalic, head/scalp atraumatic, hearing grossly normal bilaterally and moist oral mucous membranes Eyes PERRL and EOMs intact bilaterally Neck no lymphadenopathy and supple Resp normal respiratory effort, no retractions, no use of accessory muscles and clear to auscultation bilaterally Cardio regular rate and regular rhythm GI normal to inspection, nondistended, normoactive bowel sounds, soft to palpation, non-tender and non-distended Extremity normal to inspection and full ROM Skin Skin Narrative: Patient has no evidence of rash, abscess or jaundice. Neuro oriented x3, CN's II-XII intact bilaterally, moves all extremities and no focal motor deficits Sensorium / Orientation: awake, alert, oriented to person, oriented to place and oriented to time Speech: speech normal Psych affect normal Results Medical Records Data Attestation: I reviewed the patient's medical records Lab / Micro Data Attestation: I reviewed the patient's lab results. 06/11/24 20:45 06/11/24 20:45 Labs: Laboratory Results - last 24 hr 06/11/24 20:45: WBC 11.5 H, RBC 4.34 L, Hgb 14.1, Hct 42.0, MCV 96.8 H, MCH 32.5 H, MCHC 33.6, RDW Std Deviation 49.6 H, RDW Coeff of Marlene 13.9, Plt Count 605 H, MPV 9.8, Immature Gran % (Auto) 0.400, Neut % (Auto) 61.0, Lymph % (Auto) 21.9, Ray % (Auto) 11.9 H, Eos % (Auto) 4.1, Baso % (Auto) 0.7, Absolute Neuts (auto) 7.0, Absolute Lymphs (auto) 2.53, Nucleated RBC % 0, PT 15.3 H, INR 1.2, APTT 33.9, Sodium 139, Potassium 4.0, Chloride 109 H, Carbon Dioxide 26.0, Anion Gap 4 L, BUN 19 H, Creatinine 1.31 H, Estim Creat Clear Calc 67.24, Est GFR (MDRD) Af Amer 71, Est GFR (MDRD) Non-Af 59 L, BUN/Creatinine Ratio 14.5, Glucose 116 H , Calcium 8.6, Total Bilirubin 0.50, Direct Bilirubin 0.15, AST 19, ALT 28, Alkaline Phosphatase 87, Troponin I High Sens 146 H*, Total Protein 6.6, Albumin 3.4, Globulin 3.2, Lipase 32 06/11/24 21:06: Lactic Acid 0.9 06/11/24 22:50: Urine Color Yellow, Urine Clarity Clear, Urine pH 7.0, Ur Specific [place] 1.010, Urine Protein Negative, Urine Glucose (UA) Normal, Urine Ketones Negative, Urine Occult Blood Negative, Urine Nitrite Negative, Urine Bilirubin Negative, Urine Urobilinogen Normal, Ur Leukocyte Esterase Negative Imaging Radiology Impression Chest X-Ray 06/11/24 20:44 IMPRESSION: Mild nonspecific bilateral perihilar interstitial infiltrate or pulmonary edema Electronically Signed: Chris Cleaning MD at 21:32 EDT Reading Location ID and State: [facility] / [place] Tel [phone], Service support , Abdomen/Pelvis CT 06/11/24 20:59 IMPRESSION: Findings which may be consistent with nonspecific gastroduodenitis.. Mild diffuse ileus with fecal retention in colon Mild nonspecific diffuse left adrenal enlargement with stranding in the adjacent fat possibly due to inflammatory changes. Clinical correlation recommended Electronically Signed: Chris Cleaning MD at 22:40 EDT , Assessment & Plan Assessment/Plan (1) Non-STEMI (non-ST elevated myocardial infarction): (2) Atherosclerotic heart disease of [place] coronary artery without angina pectoris: QUALIFIERS: [place] vs. transplanted heart: [place] heart Qualified Code(s): I25.10 - Atherosclerotic heart disease of [place] coronary artery without angina pectoris (3) Old anteroseptal myocardial infarction: (4) History of coronary artery stent placement: (5) Ischemic cardiomyopathy: (6) Essential (primary) hypertension: (7) Hyperlipidemia: QUALIFIERS: Hyperlipidemia type: unspecified Qualified Code(s): E 78.5 - Hyperlipidemia, unspecified (8) PETERSON (obstructive sleep apnea): (9) Tobacco abuse: PLAN: Plan 1. Elevated initial troponin of 146 pg/mL followed by a second upwardly trending troponin of 190 pg/mL worrisome for NSTEMI in the setting of known previous CAD; s/p STEMI with LAD CONNOR (2017) - Admit to PCU. Serialize troponin. Continue Plavix, Ezetimibe and full-dose Lovenox given in ER plus start ECASA. Check echocardiogram to evaluate LVEF. Check Lexiscan NST in AM to confirm suspicion of underlying ischemia. Finally, we will consult Dr. Osorio of [facility] to see this patient on-rounds in the AM for further recommendations with help appreciated in advance. 2. CT evidence of gastroduodenitis with mild ileus and fecal retention with nonspecific Left adrenal enlargement complicating #1 - Keep NPO except medications plus give IV Protonix BID. Also give prn IV Zofran. 3. Thrombocytosis with elevated platelet count of 605K present on admission compounding #1 & #2 - Check CBC in AM to follow trend. Suspected to be an acute phase reactant due to #2. 4. Essential hypertension - Continue home regimen plus give prn IV Hydralazine for systolic blood pressure > 160 mmHg. 5. Hyperlipidemia; on Ezetimibe - Resume Ezetimibe and check Lipid Profile in AM in light of #1. 6. Obesity; with BMI of 30.5 this admission plus PETERSON - Weight loss will be recommended. Check TSH. 7. History of tobacco abuse - Tobacco cessation will be strongly encouraged with Nicotine patch offered to control cravings. 8. History of ischemic cardiomyopathy - Noted. Echocardiogram pending this admission for #1. 9. History of Pneumothorax - Noted. 10. OA - Give Tylenol prn. 11. DVT prophylaxis - Patient already on full-dose Lovenox for #1. Total time: Approximately 75 minutes. Charges/Coding Visit Charges Inpatient E&M: 92347 Init Hosp L3
[2024-06-11] MEDS: HYDROmorphone 1 MG/ML Syringe 0.5 MG IV (23:16)
[2024-06-11] MEDS: Enoxaparin 100 MG/ML Syringe SC (23:17)
--- NOTE | 2024-06-11 23:37 | EKG12_ITS ---
Test Reason : CP ADMIT Blood Pressure : / mmHG Vent. Rate : 070 BPM Atrial Rate : 070 BPM P-R Int : 184 ms QRS Dur : 092 ms QT Int : 406 ms P-R-T Axes : 061 -30 041 degrees QTc Int : 438 ms Normal sinus rhythm Left axis deviation Anteroseptal infarct , age undetermined T wave abnormality, consider lateral ischemia Abnormal ECG Confirmed by Gómez Osorio ([id number]), editor city KARENA FREITAS ([id number]) on 06/13/2024 8:21:34 AM Referred By: TONEY Confirmed By:Gómez Osorio
[2024-06-11 23:47] LABS: Troponin-I HS 190 pg/mL (3.0-78.0)
[2024-06-12] VITALS (18 sets, daily range): BP systolic 106–147; BP diastolic 56–90; PULSE 52–86; RESP 12–21; TEMP 36.2–36.8; O2SAT 91–99; BMI 26.3
[2024-06-12] MEDS: Nitroglycerin SL (ED/IMG/CATH) 0.4 MG TABLET SL
--- NOTE | 2024-06-12 00:51 | EKG12_ITS ---
Test Reason : CP Blood Pressure : / mmHG Vent. Rate : 064 BPM Atrial Rate : 064 BPM P-R Int : 150 ms QRS Dur : 084 ms QT Int : 420 ms P-R-T Axes : 052 -21 060 degrees QTc Int : 433 ms Sinus rhythm with occasional Premature ventricular complexes Anteroseptal infarct , age undetermined T wave abnormality, consider lateral ischemia Abnormal ECG When compared with ECG of 11-JUN-2024 23:45, MANUAL COMPARISON REQUIRED, DATA IS UNCONFIRMED Confirmed by Gómez Osorio ([id number]), restaurant expeditor KARENA FREITAS ([id number]) on 06/12/2024 10:54:12 AM Referred By: Confirmed By:Gómez Osorio
[2024-06-12] MEDS: Pantoprazole Sodium 40 MG in 0.9% Normal Saline (100mL MB+) 100 ML 330 MG IV ×3 (01:29→21:13)
[2024-06-12] MEDS: 0.9% Saline Lock 10 ML Syringe IV ×2 (01:32→21:15)
[2024-06-12 04:01] LABS: D-Dimer Quantitative (DVT/PE) 0.28 FEU/ug/m (0.27-0.49)
[2024-06-12 04:15] LABS: Troponin-I HS 218 pg/mL (3.0-78.0)
--- NOTE | 2024-06-12 05:55 | ECHOD_ITS ---
Reason For Study: Chest Pain Procedure This was a 2D Doppler, Color Flow transthoracic echocardiogram. Exam performed portable in patient room. Left Ventricle Mild concentric left ventricular hypertrophy. Normal LV size. LV apical akinesis. Estimated LVEF 50%. Diastolic function is indeterminate. Right Ventricle Normal right ventricle. Atria The left atrium is severely enlarged. Normal right atrium. Mitral Valve Mild (1+) mitral valve insufficiency. Tricuspid Valve Normal tricuspid valve. Aortic Valve Trisinus/trileaflet aortic valve. Pulmonic Valve The pulmonic valve is not well visualized. Great Vessels Normal sized aortic root. Pericardium/Pleural No pericardial effusion. MMode/2D Measurements & Calculations LVIDd: 5.4 cm IVSd: 1.3 cm Ao root diam: 3.5 cm LVIDs: 4.0 cm LVPWd: 1.3 cm LA dimension: 5.2 cm FS: 26.0 % LAV(MOD-bp): 87.2 ml LVAd ap4: 38.4 cm2 SV(MOD-sp4): 70.8 ml LAV(MOD-bp) Indexed: 40.7 ml/m2 LVLd ap4: 8.4 cm LAV(MOD-sp2): 73.2 ml EDV(MOD-sp4): 140.3 ml LAV(MOD-sp4): 97.0 ml EDV(sp4-el): 148.0 ml LVAs ap4: 24.9 cm2 LVLs ap4: 7.3 cm ESV(MOD-sp4): 69.5 ml ESV(sp4-el): 71.7 ml EF(MOD-sp4): 50.5 % EF(sp4-el): 51.5 % SV(sp4-el): 76.3 ml LA A4 area: 27.6 cm2 RA A4 area: 23.9 cm2 TAPSE: 2.9 cm Time Measurements MV dec time: 0.18 sec Doppler Measurements & Calculations MV E max beau: 62.8 cm/sec Lat Peak E' Beau: 8.8 cm/sec Med Peak E' Beau: 10.5 cm/sec MV A max beau: 71.5 cm/sec E/E' lat: 7.2 E/E' med: 6.0 MV E/A: 0.88 MV V2 max: 81.1 cm/sec MV P1/2t max beau: 82.6 cm/sec Ao V2 max: 135.9 cm/sec MV max P.6 mmHg MV P1/2t: 69.0 msec Ao max P.4 mmHg MV V2 mean: 43.7 cm/sec MV dec slope: 350.7 cm/sec2 Ao V2 mean: 92.9 cm/sec MV mean P.93 mmHg Ao mean P.0 mmHg MV V2 VTI: 29.2 cm MVA(P1/2t): 3.2 cm2 Ao V2 VTI: 30.4 cm AV (velocity ratio): 0.68 LV V1 max: 103.4 cm/sec PA V2 max: 94.1 cm/sec LV V1 max P.3 mmHg PA max PG (full): 1.1 mmHg LV V1 mean P.4 mmHg PA V2 mean: 67.2 cm/sec LV V1 mean: 73.3 cm/sec PA mean PG (full): 0.56 mmHg LV V1 VTI: 20.6 cm ECHO/Echo Complete Interpretation Summary Mild concentric left ventricular hypertrophy. LV apical akinesis. Estimated LVEF 50%. Diastolic function is indeterminate. The left atrium is severely enlarged. Mild (1+) mitral valve insufficiency. Ordering Physician: Ruddy Paulson Performed By: Jensen Faria RCS
[2024-06-12] MEDS: Losartan Potassium 50 MG Tablet PO (06:53)
--- NOTE | 2024-06-12 07:52 | PCM.CONS.C ---
Assessment & Plan Assessment/Plan (1) Non-STEMI (non-ST elevated myocardial infarction): PLAN: Patient's troponin are mildly elevated. He continues to have discomfort in his upper epigastric area and lower thoracic area identical to what he described as his prior heart attack in 2017. His EKG did not show any significant ST elevation but he does have T wave inversions across the precordium. Given the patient's known history of coronary disease status post remote stenting of the LAD in June 2017 I would recommend he undergo left heart catheterization. The procedure risk/benefit and alternatives were explained to the patient detail he voiced understanding and agrees to proceed. Dr. Aleman will be performing the procedure. (2) Essential (primary) hypertension: PLAN: Blood pressure is adequately controlled on his current medical therapy he should be continued on the same meds. (3) Hyperlipidemia: QUALIFIERS: Hyperlipidemia type: unspecified Qualified Code(s): E78.5 - Hyperlipidemia, unspecified PLAN: Patient is on ezetimibe but he is not on statin therapy. He has no known allergies listed we will have to address utilization of statin therapy. PLAN: Plan 1. Urgent left heart catheterization and percutaneous revascularization as indicated. 2. Address secondary risk factors prior to discharge from the hospital. 3. If the catheterization proves to be negative consideration should be given for evaluating him for this suspected gastroduodenitis seen on the CT scan. HPI Consult Data Date of Consult: 06/12/24 HPI Narrative Reason for Consultation: Chest pain with positive enzymes HPI Narrative: PATTY COFFMAN, is a 64 M who presents with episode of chest discomfort started approximately 7 PM last evening. He presented to the emergency department writhing in pain was treated with morphine nitrates and Lovenox. The patient complained of upper epigastric lower thoracic discomfort that he described as identical to his previous myocardial infarction in June 2017. At that time the patient presented with ventricular febrile carlos manuel arrest had 25 minutes of CPR and was diagnosed with an acute anterior septal microinfarction which was treated with thrombectomy and drug-eluting stent. He had what appeared to be an apical thrombus with an EF of 35 to 40%. He subsequently developed severe abdominal pain and repeat echocardiogram cardiogram showed his LV thrombus appeared to have resolved possibly suggesting migration into his mesenteric area. The patient had no lower GI bleeding and recovered without incident. 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 The patient is enzymes were mildly positive in the 190s and 200s on the first and second sets. His EKG showed T wave inversions in anterior septal leads were slightly more prominent than on an old EKG. The patient continues to complain of much milder discomfort in his mid epigastric area and lower thoracic areas. He denies any GI bleeding denies any bleeding issues. He remains on clopidogrel but he is not taking aspirin at home. He is not on statin therapy he is on carvedilol and losartan in his home environment. He did receive episodic morphine with improvement in his discomfort. The patient did have a CT of the abdomen and pelvis which showed changes in the distal stomach consistent with possible gastroduodenitis. [facility] Medical History Old anteroseptal myocardial infarction (07/02/17) Essential (primary) hypertension History of pneumothorax Ischemic cardiomyopathy Hyperlipidemia Tobacco abuse Atherosclerotic heart disease of [place] coronary artery without angina pectoris History of ST elevation myocardial infarction (STEMI) (07/02/17) History of cardiac arrest Home Medications ?Medication ?Instructions ?Recorded ?Last Taken ?Type carvedilol 12.5 mg tablet 12.5 mg PO BID #180 tabs 06/24/23 06/11/24 Rx clopidogrel 75 mg tablet (Plavix) 75 mg PO QDAY #90 tabs 08/08/23 06/11/24 Rx losartan 50 mg tablet 50 mg PO DAILY #90 tabs 02/20/24 06/11/24 Rx ezetimibe 10 mg tablet (Zetia) 10 mg PO DAILY #90 tabs 06/11/24 06/11/24 Rx Allergy/AdvReac Type Severity Reaction Status Date / Time No Known Allergies Allergy Verified 06/11/24 21:53 Family History Father CAD (coronary artery disease) Mother History of heart valve replacement Brother CVA (cerebral vascular accident) Aunt CAD (coronary artery disease) Uncle CAD (coronary artery disease) Surgical History History of coronary artery stent placement (07/02/17) History of left heart catheterization (08/01/19) Social History Smoking Status: Current some day smoker tobacco type: cigarettes second hand exposure: Yes alcohol intake: never substance use type: does not use caffeine: Yes what type of physical activity do you participate in: walking frequency: daily ROS Constitutional Constitutional: Reports as per HPI Eyes Eyes: Reports systems reviewed and no addt'l complaints, except as documented ENT HEENT: Reports systems reviewed and no addt'l complaints, except as documented Cardiovascular Cardiovascular: Reports as per HPI Respiratory/Chest Respiratory/Chest: Reports as per HPI Gastrointestinal Gastrointestinal: Reports as per HPI Genitourinary Genitourinary: Reports systems reviewed and no addt'l complaints, except as documented Musculoskeletal Musculoskeletal: Reports systems reviewed and no addt'l complaints, except as documented Integumentary Integumentary: Reports systems reviewed and no addt'l complaints, except as documented Neurologic Neurologic: Reports systems reviewed and no addt'l complaints, except as documented Psychiatric Psychiatric: Reports as per HPI Endocrine Endocrinology: Reports systems reviewed and no addt'l complaints, except as documented Allergic/Immunologic Allergic/Immunologic: Reports systems reviewed and no addt'l complaints, except as documented Physical Exam Const alert and oriented x3 HEENT normocephalic Eyes EOMs intact bilaterally Neck no JVD Chest inspection of chest normal Resp normal respiratory effort and clear to auscultation bilaterally Cardio Rate: regular rate Rhythm: regular rhythm Heart Sounds: S1 normal and S2 normal; Negative for click, gallop, murmur or rub Peripheral Pulses: pulses 2+ throughout GI soft to palpation and no bruits Extremity normal to inspection General Extremity: Negative for edema Skin no rashes or lesions noted Neuro Neuro Narrative: Alert and oriented x 3 Psych mental status grossly normal Risk Stratification Risk Stratification Applicable: Yes Age >/= 65: No >/= 3 CAD Risk Factors (HTN, HLD, DM, family hx of CAD, or current smoker): Yes Aspirin Use in the Past 7 Days: No Severe Angina (>/= episodes in 24 hours): Yes EKG ST Changes >/= 0.5mm: No Positive Cardiac Marker: Yes MIAH Risk Stratification Score: 3 MIAH % Risk: 13% Risk Charges/Coding Visit Charges Inpatient E&M: 47078 Init Hosp L3 Objective Data Vital Signs: Vital Signs Temp Pulse Resp BP Pulse Ox O2 Del Method O2 Flow Rate 97.8 F 62 18 134/76 H 98 Bi-pap 2 06/12/24 06:48 06/12/24 06:48 06/12/24 06:48 06/12/24 06:48 06/12/24 06:48 06/12/24 06:48 06/12/24 01:08 FiO2 21 06/12/24 03:45 Oxygen Flow Rate (L/min) 2 Oxygen Delivery Method Bi-pap Weight: 183 lb 6.793 oz Body Mass Index (BMI) 26.3 Intake & Output: Intake and Output for Last 24 Hours 06/10/24 06/11/24 06/12/24 23:59 23:59 23:59 Intake Total 1700 / 1700 110 / 110 Balance 1700 / 1700 110 / 110 Lab / Micro Data Attestation: I reviewed the patient's lab results. 06/11/24 20:45 06/11/24 20:45 Labs: Laboratory Results - last 24 hr 06/11/24 20:45: WBC 11.5 H, RBC 4.34 L, Hgb 14.1, Hct 42.0, MCV 96.8 H, MCH 32.5 H, MCHC 33.6, RDW Std Deviation 49.6 H, RDW Coeff of Marlene 13.9, Plt Count 605 H, MPV 9.8, Immature Gran % (Auto) 0.400, Neut % (Auto) 61.0, Lymph % (Auto) 21.9, Blaine % (Auto) 11.9 H, Eos % (Auto) 4.1, Baso % (Auto) 0.7, Absolute Neuts (auto) 7.0, Absolute Lymphs (auto) 2.53, Nucleated RBC % 0, PT 15.3 H, INR 1.2, APTT 33.9, Sodium 139, Potassium 4.0, Chloride 109 H, Carbon Dioxide 26.0, Anion Gap 4 L, BUN 19 H, Creatinine 1.31 H, Estim Creat Clear Calc 67.24, Est GFR (MDRD) Af Amer 71, Est GFR (MDRD) Non-Af 59 L, BUN/Creatinine Ratio 14.5, Glucose 116 H, Calcium 8.6, Total Bilirubin 0.50, Direct Bilirubin 0.15, AST 19, ALT 28, Alkaline Phosphatase 87, Troponin I High Sens 146 H*, Total Protein 6.6, Albumin 3.4, Globulin 3.2, Lipase 32 06/11/24 21:06: Lactic Acid 0.9 06/11/24 22:50: Urine Color Yellow, Urine Clarity Clear, Urine pH 7.0, Ur Specific [place] 1.010, Urine Protein Negative, Urine Glucose (UA) Normal, Urine Ketones Negative, Urine Occult Blood Negative, Urine Nitrite Negative, Urine Bilirubin Negative, Urine Urobilinogen Normal, Ur Leukocyte Esterase Negative, Urine RBC 0 SEEN, Urine WBC 0 SEEN, Ur Squamous Epith Cells 0 SEEN, Urine Bacteria 0 SEEN, Urine Mucus 0 SEEN 06/11/24 23:00: Troponin I High Sens 190 H* 06/12/24 03:31: D-Dimer Quant (PE/DVT) 0.28, Troponin I High Sens 218 H* Rhythm Strip Rhythm Strip: Sinus Rhythm Rate: 65 Ectopy: PVC(s) Cardiology Labs/Tests 06/11/24 20:45: WBC 11.5 H, RBC 4.34 L, Hgb 14.1, Hct 42.0, MCV 96.8 H, MCH 32.5 H, MCHC 33.6, Plt Count 605 H, MPV 9.8, Immature Gran % (Auto) 0.400, Neut % (Auto) 61.0, Lymph % (Auto) 21.9, Blaine % (Auto) 11.9 H, Eos % (Auto) 4.1, Baso % (Auto) 0.7, Absolute Neuts (auto) 7.0, Nucleated RBC % 0, PT 15.3 H, INR 1.2, APTT 33.9, Sodium 139, Potassium 4.0, Chloride 109 H, Carbon Dioxide 26.0, Anion Gap 4 L, BUN 19 H, Creatinine 1.31 H, Est GFR (MDRD) Af Amer 71, Est GFR (MDRD) Non-Af 59 L, BUN/Creatinine Ratio 14.5, Glucose 116 H, Calcium 8.6, Total Bilirubin 0.50, Direct Bilirubin 0.15 06/11/24 21:06: Lactic Acid 0.9 06/11/24 22:50: Urine Color Yellow, Urine Clarity Clear, Urine pH 7.0, Ur Specific [place] 1.010, Urine Protein Negative, Urine Glucose (UA) Normal, Urine Ketones Negative, Urine Occult Blood Negative, Urine Nitrite Negative, Urine Bilirubin Negative, Urine Urobilinogen Normal, Ur Leukocyte Esterase Negative, Urine RBC 0 SEEN, Urine WBC 0 SEEN 06/12/24 03:31: D-Dimer Quant (PE/DVT) 0.28 Rhythm: EKG: ECHO: Stress Test: Cardiac Cath: PCI: CT Surgery: Holter monitor: EPS: PPM: CXR: Chest CT Scan: Radiography Diagnostic Testing: Radiology Impression Chest X-Ray 06/11/24 20:44 IMPRESSION: Mild nonspecific bilateral perihilar interstitial infiltrate or pulmonary edema Electronically Signed: Chris Cleaning MD at 21:32 EDT , Abdomen/Pelvis CT 06/11/24 20:59 IMPRESSION: Findings which may be consistent with nonspecific gastroduodenitis.. Mild diffuse ileus with fecal retention in colon Mild nonspecific diffuse left adrenal enlargement with stranding in the adjacent fat possibly due to inflammatory changes. Clinical correlation recommended Electronically Signed: Chris Cleaning MD at 22:40 EDT , EKG Initial EKG: Attestation: I personally reviewed and interpreted this EKG as follows: (Normal sinus rhythm with nonspecific T wave inversions across the precordium. Slightly more prominent than an old EKG.)
[2024-06-12] MEDS: 0.9% Normal Saline (1000mL) 1,000 ML 15 ML IV (08:28)
[2024-06-12] MEDS: Carvedilol 12.5 MG Tablet PO ×2 (08:28→21:13)
[2024-06-12] MEDS: Clopidogrel Bisulfate 75 MG Tablet PO (08:28)
--- NOTE | 2024-06-12 08:36 | NURSING ---
This RN called and gave report to SHAHNAZ Baker in [employer]able products sorter.
[2024-06-12 09:00] LABS: Troponin-I HS 208 pg/mL (3.0-78.0)
[2024-06-12 09:26] LABS: ACT Activated Clotting Time 238 sec (74-137)
--- NOTE | 2024-06-12 09:29 | CL.D_ITS ---
Patient Name: PATTY COFFMAN Study Date: 06/12/2024 Performing: Georges Aleman MD Ht: 70 inches 177.8 cm : 1960 Wt: 183.42 lbs 83.2 kg Age: 64 Gender: male BSA: 2.01 PROCEDURE(S) PERFORMED [id number]-([id number])[facility] CLINICAL PROFILE AND INDICATIONS Indications: ACS <= 24 hrs Heart Failure: None CAD Presentations: Non-STEMI. Symptom onset Date/Time: Time Not Available CONCLUSIONS 70% ISR Mid LAD RECOMMENDATIONS Maximize medical management. Possible staged PCI to LAD ISR when abdominal issues resolved. DESCRIPTION OF PROCEDURE The patient arrived to the procedure lab. The risks and benefits of the procedure as well as a full description of our services here and current unavailability of surgical backup were fully explained to the patient and/or their significant other prior to the catheterization. The Timeout was completed, verifying the correct patient and procedure. The patient's procedural site was prepped and draped in the usual fashion. Local anesthetic was given subcutaneously to right radial region with Lidocaine 2%. Using a modified Seldinger technique, arterial access was obtained via the right radial artery, a 6Fr sheath was inserted by Panfilo Vega RN LV to AO pullback pressures were then recorded. Left Coronary Artery selective angiography was performed in multiple views using a 5 Fr. 4.0 [place] catheter. Right Coronary Artery selective angiography was then performed in multiple views using a 5 Fr. 4.0 [place] catheter.The arterial sheath was pulled and a TR Band was applied for hemostasis CORONARY ANGIOGRAPHY DOMINANCE: Right Dominant LEFT HEART ASSESSMENT LVEDP: 5 mmHg LEFT MAIN: Angiographically normal LEFT ANTERIOR DESCENDING ARTERY: LAD: In-Stent Restenosis 70% Mid lesion in LAD CIRCUMFLEX ARTERY: Angiographically normal RIGHT CORONARY ARTERY: Angiographically normal COMPLICATIONS No Complications PROCEDURE MEDICATIONS Versed 1 mg IV Fentanyl 50 mcg IV Oxygen: 2 L/min via nasal cannula Aspirin (325mg) 1 Tabs PO @ 06/12/2024 08:40:53 Heparin given IA 06/12/2024 09:04:08 Heparin 5000 unit(s) IV 06/12/2024 09:10:59 Verapamil 2.5mg, Ntg 200mcgs, 2000 units of Heparin given IA 06/12/2024 09:04:08 SUMMARY OF HEMODYNAMIC DATA Time AIR REST ECG 08:45:55 LV 137/4, 5 09:07:25 LV 137/3, 5 09:07:34 LVp 126/2, 22 09:07:47 AOp 114/76 (95) 09:07:54 AO 111/82 (97) SA 09:09:35 Signed By Georges Aleman MD On 06/12/2024 09:28:46 Georges Aleman MD
--- NOTE | 2024-06-12 09:32 | CASEMGMT ---
Insurance review for hospitals In-network withPsychiatric insurance if transfer is recommended is as follows: [facility], [place], [facility], [place], [facility], [facility], [facility], [facility], [place], [facility]), and . Virgie Bauer, Discharge Planning Asst.
--- NOTE | 2024-06-12 10:55 | CASEMGMT ---
SHAHNAZ MACARIO Assessment: Face to Face with pt and pt for initial transition planning/care coordination assessment. SHAHNAZ MACARIO introduced self and role at [facility], pt voices understanding and consents to assessment. Pt is A&O x4 and answers all questions appropriately at this time. Pt resting in bed, in no distress. Pt in room, pt requested I ask questions so he can rest. Care providers, pharmacy, and demographics verified/updated. Strata: 2 Admitting Dx: NSTEMI PCP: Diego Specialists: [facility]; [facility] Coordinator. Preferred Pharmacy: [facility] Insurance: [employer] Prescription Benefit: No LNOK: , Son Living Arrangements: Pt lives with and daughter in a 1 story home with zero steps to enter. ADLs: Pt reports pt is I with ADLs and IADLs. Transportation: Pt reports they hire drivers, taxis to take them places. Might need hospital van to transport home. DME: CPAP from [employer]. Pt denies list of local DME companies, requested [employer] for any O2 needs at time of DC. HHC/SNF: Denies Hx of. Pt states no concerns with going home at time of dc. Pt states no further concerns/needs. CM to follow. Advised pt to ask CM if any further question/concerns/needs arise, voices understanding. Pt Goal: Home Plan: Home with family support, follow for O2 and transportation needs. Nora CHRISTIE CM
[2024-06-12 11:16] LABS: Cholesterol 133 mg/dL (200); High Density Lipoprotein 50 mg/dL; Triglycerides 82 mg/dL; Very Low Density Lipoprotein 16 mg/dL (5-40)
[2024-06-12] MEDS: Ezetimibe 10 MG Tablet PO (12:43)
--- NOTE | 2024-06-12 16:55 | PCM.PN.HOSP ---
Subjective Subjective Doing well, no issues overnight. Still has a little bit of epigastric abdominal pain/lower chest pain Objective Data Objective Data Vital Signs: Vital Signs Temp Pulse Resp BP Pulse Ox O2 Del Method O2 Flow Rate 97.6 F L 71 18 117/70 92 Room Air 2 06/12/24 15:30 06/12/24 15:30 06/12/24 15:30 06/12/24 15:30 06/12/24 15:30 06/12/24 15:30 06/12/24 13:28 FiO2 21 06/12/24 03:45 Oxygen Flow Rate (L/min) 2 Oxygen Delivery Method Room Air Weight: 183 lb 6.793 oz Body Mass Index (BMI) 26.3 Intake & Output: Intake and Output for Last 24 Hours 06/11/24 06/12/24 06/13/24 03:59 03:59 03:59 Intake Total 1700 / 1700 661 / 661 Balance 1700 / 1700 661 / 661 Lab / Micro Data 06/11/24 20:45 06/11/24 20:45 Labs: Laboratory Results - last 24 hr 06/11/24 20:45: WBC 11.5 H, RBC 4.34 L, Hgb 14.1, Hct 42.0, MCV 96.8 H, MCH 32.5 H, MCHC 33.6, RDW Std Deviation 49.6 H, RDW Coeff of Marlene 13.9, Plt Count 605 H, MPV 9.8, Immature Gran % (Auto) 0.400, Neut % (Auto) 61.0, Lymph % (Auto) 21.9, [place] % (Auto) 11.9 H, Eos % (Auto) 4.1, Baso % (Auto) 0.7, Absolute Neuts (auto) 7.0, Absolute Lymphs (auto) 2.53, Nucleated RBC % 0, PT 15.3 H, INR 1.2, APTT 33.9, Sodium 139, Potassium 4.0, Chloride 109 H, Carbon Dioxide 26.0, Anion Gap 4 L, BUN 19 H, Creatinine 1.31 H, Estim Creat Clear Calc 67.24, Est GFR (MDRD) Af Amer 71, Est GFR (MDRD) Non-Af 59 L, BUN/Creatinine Ratio 14.5, Glucose 116 H, Calcium 8.6, Total Bilirubin 0.50, Direct Bilirubin 0.15, AST 19, ALT 28, Alkaline Phosphatase 87, Troponin I High Sens 146 H*, Total Protein 6.6, Albumin 3.4, Globulin 3.2, Lipase 32 06/11/24 21:06: Lactic Acid 0.9 06/11/24 22:50: Urine Color Yellow, Urine Clarity Clear, Urine pH 7.0, Ur Specific [place] 1.010, Urine Protein Negative, Urine Glucose (UA) Normal, Urine Ketones Negative, Urine Occult Blood Negative, Urine Nitrite Negative, Urine Bilirubin Negative, Urine Urobilinogen Normal, Ur Leukocyte Esterase Negative, Urine RBC 0 SEEN, Urine WBC 0 SEEN, Ur Squamous Epith Cells 0 SEEN, Urine Bacteria 0 SEEN, Urine Mucus 0 SEEN 06/11/24 23:00: Troponin I High Sens 190 H* 06/12/24 03:31: D-Dimer Quant (PE/DVT) 0.28, Troponin I High Sens 218 H*, Triglycerides 82, Cholesterol 133, LDL Cholesterol 67, VLDL Cholesterol 16, HDL Cholesterol 50, TSH 1.150 06/12/24 06:05: Troponin I High Sens 208 H* 06/12/24 09:18: Activated Clotting Time 238 H Radiography Diagnostic Testing: Radiology Impression Chest X-Ray 06/11/24 20:44 IMPRESSION: Mild nonspecific bilateral perihilar interstitial infiltrate or pulmonary edema Electronically Signed: Chris Cleaning MD at 21:32 EDT Reading Location ID and State: [address] [place] [address] Tel [phone], Service support , Abdomen/Pelvis CT 06/11/24 20:59 IMPRESSION: Findings which may be consistent with nonspecific gastroduodenitis.. Mild diffuse ileus with fecal retention in colon Mild nonspecific diffuse left adrenal enlargement with stranding in the adjacent fat possibly due to inflammatory changes. Clinical correlation recommended Electronically Signed: Chris Cleaning MD at 22:40 EDT Reading Location ID and State: [facility] [place] / [place] Tel [phone], Service support , Rhythm Strip Rhythm Strip: Sinus Rhythm Rate: 65 Ectopy: PVC(s) Physical Exam Narrative General: Alert, Oriented x3, Cooperative, No apparent distress HEENT: Atraumatic, PERRLA, EOMI, Normocephalic Oral: Moist Mucosa Neck: Supple, No JVD Lungs: Diminished, Normal air movement, No rhonchi, No wheeze, No rales Cardiovascular: Regular rate, Regular Rhythm, Normal S1, Normal S2, No murmurs Abdomen: Soft, Non Tender, Non-Distended, No Hepato-splenomegaly Extremities: No edema, Capillary Refill Less than 3 Seconds Skin: No rashes, No breakdown Musculoskeletal: No Tenderness to Palpation of Joints or Extremities Neurological: No focal neurological deficits, Motor Exam 5/5 strength throughout, Sensory exam intact to light touch and pain Psych/Mental Status: Normal Affect, Appropriate Const alert, oriented x3, average body habitus and healthy appearing Constitutional Narrative: Mild distress noted. General Appearance: cooperative HEENT normocephalic, head/scalp atraumatic, hearing grossly normal bilaterally and moist oral mucous membranes Eyes PERRL and EOMs intact bilaterally Neck no lymphadenopathy and supple Resp normal respiratory effort, no retractions, no use of accessory muscles and clear to auscultation bilaterally Cardio regular rate and regular rhythm GI normal to inspection, nondistended, normoactive bowel sounds, soft to palpation, non-tender and non-distended Extremity normal to inspection and full ROM Skin Skin Narrative: Patient has no evidence of rash, abscess or jaundice. Neuro oriented x3, CN's II-XII intact bilaterally, moves all extremities and no focal motor deficits Sensorium / Orientation: awake, alert, oriented to person, oriented to place and oriented to time Speech: speech normal Psych affect normal Assessment & Plan Assessment/Plan (1) Non-STEMI (non-ST elevated myocardial infarction): PLAN: Plan 1. Non-STEMI/CAD status post stent/essential HTN/HLD ? Cardiac cath demonstrated accumulation of plaque in his previous stent however cardiology was unsure whether or not this was the cause of his pain as the CT scan also demonstrated gastroduodenitis and they would like gastroenterology to evaluate him for this prior to placing another stent and subjecting him to prolonged aspirin and Plavix ? Continue with his home blood pressure medications will monitor make adjustments as necessary ? Continue Zetia 2. Gastroduodenitis ? Unclear as to the significance will consult gastroenterology for possible EGD and evaluation ? Continue with Protonix DVT: Lovenox Charges/Coding Visit Charges Inpatient E&M: 57946 Subs Hosp L2
[2024-06-12] MEDS: Acetaminophen 325 MG Tablet 650 MG PO (21:12)
--- NOTE | 2024-06-12 23:48 | CPS ---
Patient refused PAP therapy for the night.
[2024-06-13] VITALS (10 sets, daily range): BP systolic 112–145; BP diastolic 65–93; PULSE 63–74; RESP 16–18; TEMP 36.5–37.4; O2SAT 93–95
--- NOTE | 2024-06-13 | IMM_PTH ---
PATIENT: PATTY COFFMAN LOC: [facility] U#:[id number] AGE/SX: 64/M ROOM: [facility] RE06/11/[address]: Dr. Magno Day MD : 1960 BED: 1 DIS: 06/13/2024 SPEC #: [id number] RECD: 06/15/24 10:27 STATUS: RODRIGO REKell #: [id number] JUSTO: 06/13/24 00:[address]: Rogers Erickson DEPT: IMMUNOHISTOCHEMISTRY RECD BY: Mahesh Ibrahim ENTERED: 06/15/24 10:28 SP TYPE: IMMUNO OTHR DR: DO Dr. Gómez Garcia MD Dr. Nolan Byler, DO Dr. Magno Day MD Tissues: Esophagus, NOS Procedures: P53 (initial) KI-67 (add) PHYSICIAN & INSTITUTION [place] [id number] SPECIMEN INFORMATION: Tissue Source: Distal esophagus biopsy Clinical Info: Gastroduodenitis Specimen Number: [id number] CPT code: 80502,88719 METHODOLOGY: Deparaffinized sections of prefer/formalin-fixed tissue or PAP/DQ stained slides are incubated with monoclonal/polyclonal antibodies/oligonucleotide probes. Localization is made via biotin free immunoperoxidase method. Appropriate controls are performed and reacted as expected. Results on target cell population are indicated in the following table: RESULTS: ANTIBODY / CLONE RESULT P53 (DO-7) negative (null pattern) Ki-67 (30-9) positive, low These tests were developed and their performance characteristics determined by [facility]. They may not have been cleared or approved by the U.S. Food and Drug Administration. The FDA has determined that such clearance or approval is not necessary. The above immunohistochemical/dualISH markers are ordered and reviewed by the Pathologist. INTERPRETATION: Distal esophagus, biopsy: Negative for dysplasia. ALBARO/nicole 06/19/2024
[2024-06-13 06:43] LABS: Absolute Lymphocyte Count 1.97 X10^3/uL (0.83-4.51); Absolute Neutrophil Count 6.8 X10^3/uL (2.0-7.7); Basophil# 0.04 X10^3/uL; Basophil% 0.4 % (0-1); Eosinophil# 0.21 X10^3/uL; Hematocrit 43.4 % (40-54); Hemoglobin 14.6 g/dL (13.0-16.5); Lymphocyte # 1.97 X10^3/ul (0.83-4.51); Lymphocyte % 18.7 % (19-41); Mean Corp Hgb Conc 33.6 g/dL (32-36); Mean Corpuscular Hgb 32.3 pg (27.0-32.0); Mean Platelet Vol. 9.9 fl (6.2-12.0); Monocyte# 1.49 X10^3/uL; Monocyte% 14.2 % (0-10); NRBC Flagged by Analyzer 0 % (0-5); Neutrophil # 6.79 X10^3/uL (2.7-7.7); Neutrophil % 64.4 % (47-70); Platelet Count 487 K/mm3 (150-450); RBC Distribution Width CV 13.9 % (11.6-14.6); RBC Distribution Width SD 48.5 fl (35.1-43.9); Red Blood Count 4.52 M/mm3 (4.6-6.2); White Blood Count 10.5 K/mm3 (4.4-11.0)
[2024-06-13 07:08] LABS: Anion Gap 5 (5-15); BUN 13 mg/dL (7-18); Calcium,Total 8.8 mg/dL (8.5-10.1); Chloride 110 mmol/L (98-107); Creatinine, Serum 1.18 mg/dL (0.70-1.30); EST Glomerular Filtration Rate 66 mL/min (>60); Est Glom Filt Rate - Afr Amer 80 mL/min (>60); Estimated Creatinine Clearance 66.16 ml/min; Glucose 100 mg/dL (74-106); Potassium 3.8 mmol/L (3.5-5.1); Sodium Level 140 mmol/L (136-145)
--- NOTE | 2024-06-13 08:37 | PCM.PN.CARD ---
Subjective Subjective Patient resting comfortably in bed this morning. Denies any chest pains at this time. The patient's catheterization yesterday revealed moderate restenosis in the proximal left anterior descending stent. It was not felt that this was significant to cause an elevation in enzymes. It is most likely the minor bump in his enzymes are related to the severe pain he was demonstrating upon admission. He is being evaluated further for GI issues as noted on the CT scan. Objective Data Vital Signs: Vital Signs Temp Pulse Resp BP Pulse Ox O2 Del Method O2 Flow Rate 97.7 F L 73 16 145/79 H 94 Room Air 2 06/13/24 06:51 06/13/24 06:51 06/13/24 06:51 06/13/24 06:51 06/13/24 06:51 06/13/24 08:20 06/12/24 13:28 FiO2 21 06/12/24 03:45 Oxygen Flow Rate (L/min) 2 Oxygen Delivery Method Room Air Weight: 183 lb 6.793 oz Body Mass Index (BMI) 26.3 Intake & Output: Intake and Output for Last 24 Hours 06/11/24 06/12/24 06/13/24 23:59 23:59 23:59 Intake Total 1700 / 1700 1371 / 1371 Balance 1700 / 1700 1371 / 1371 Lab / Micro Data Attestation: I reviewed the patient's lab results. 06/13/24 05:55 06/13/24 05:55 Labs: Laboratory Results - last 24 hr 06/12/24 03:31: Triglycerides 82, Cholesterol 133, LDL Cholesterol 67, VLDL Cholesterol 16, HDL Cholesterol 50, TSH 1.150 06/12/24 06:05: Troponin I High Sens 208 H* 06/12/24 09:18: Activated Clotting Time 238 H 06/13/24 05:55: WBC 10.5, RBC 4.52 L, Hgb 14.6, Hct 43.4, MCV 96.0 H, MCH 32.3 H, MCHC 33.6, RDW Std Deviation 48.5 H, RDW Coeff of Marlene 13.9, Plt Count 487 H, MPV 9.9, Immature Gran % (Auto) 0.300, Neut % (Auto) 64.4, Lymph % (Auto) 18.7 L, [place] % (Auto) 14.2 H, Eos % (Auto) 2.0, Baso % (Auto) 0.4, Absolute Neuts (auto) 6.8, Absolute Lymphs (auto) 1.97, Nucleated RBC % 0, Sodium 140, Potassium 3.8, Chloride 110 H, Carbon Dioxide 25.0, Anion Gap 5, BUN 13, Creatinine 1.18, Estim Creat Clear Calc 66.16, Est GFR (MDRD) Af Amer 80, Est GFR (MDRD) Non-Af 66, BUN/Creatinine Ratio 11.0, Glucose 100, Calcium 8.8 Rhythm Strip Rhythm Strip: Sinus Rhythm Rate: 70 Cardiology Labs/Tests 06/12/24 03:31: Triglycerides 82, Cholesterol 133, LDL Cholesterol 67, VLDL Cholesterol 16, HDL Cholesterol 50 06/13/24 05:55: WBC 10.5, RBC 4.52 L, Hgb 14.6, Hct 43.4, MCV 96.0 H, MCH 32.3 H, MCHC 33.6, Plt Count 487 H, MPV 9.9, Immature Gran % (Auto) 0.300, Neut % (Auto) 64.4, Lymph % (Auto) 18.7 L, [place] % (Auto) 14.2 H, Eos % (Auto) 2.0, Baso % (Auto) 0.4, Absolute Neuts (auto) 6.8, Nucleated RBC % 0, Sodium 140, Potassium 3.8, Chloride 110 H, Carbon Dioxide 25.0, Anion Gap 5, BUN 13, Creatinine 1.18, Est GFR (MDRD) Af Amer 80, Est GFR (MDRD) Non-Af 66, BUN/Creatinine Ratio 11.0, Glucose 100, Calcium 8.8 Rhythm: EKG: ECHO: Stress Test: Cardiac Cath: PCI: CT Surgery: Holter monitor: EPS: PPM: CXR: Chest CT Scan: Physical Exam Const alert and oriented x3 HEENT normocephalic Neck no JVD Chest inspection of chest normal Resp normal respiratory effort Cardio regular rate and regular rhythm Peripheral Pulses: radial pulses present right (No hematoma.) 2+ Extremity no pedal edema Skin no rashes or lesions noted Neuro Neuro Narrative: Alert and oriented x 3 Psych mental status grossly normal Assessment & Plan Assessment/Plan (1) History of coronary artery stent placement: PLAN: Patient's cath yesterday revealed moderate restenosis in the proximal left anterior descending stent of 70%. It was felt this is not the culprit of his chest discomfort. The patient be reevaluated in the ambulatory setting by Dr. Aleman for further plans of revascularization versus medical therapy for the future. (2) Essential (primary) hypertension: PLAN: Blood pressure is adequately controlled on his current medical therapy. (3) Hyperlipidemia: QUALIFIERS: Hyperlipidemia type: unspecified Qualified Code(s): E78.5 - Hyperlipidemia, unspecified PLAN: Lipids have been treated by the primary service he is on ezetimibe 10 mg daily. His triglycerides are 82, total cholesterol 133, LDL 67, and HDL 50. This represents excellent control of his hyperlipidemia. (4) Chest pain: QUALIFIERS: Chest pain type: unspecified Qualified Code(s): R07.9 - Chest pain, unspecified PLAN: The patient's discomfort is really lower thoracic upper epigastric area. In further investigation of the patient's old records it was found that he initially presented with chest discomfort but then after reperfusion developed severe upper abdominal and lower thoracic pain. This was felt potentially to be related to mesenteric embolic phenomenon as he had a left ventricular mural thrombus that dissipated during that hospitalization. No definitive embolic event was ever documented he did not develop any bloody diarrhea or anything that would represent ischemic gut. This does complicate his presenting complaint on this admission as I am concerned that he confused his heart initial pain with the pain that he suffered following the reperfusion event. The patient CT scan shows possible gastroduodenitis on this admission and further evaluation is being pursued by the primary service. PLAN: Plan 1. Continue with noncardiac evaluation of his patient's symptoms. 2. The patient should be followed up in Dr. Aleman's office in 10 to 14 days or within a month after discharge. 3. Cardiology will sign off if further assistance is needed please call. Charges/Coding Visit Charges Inpatient E&M: 01113 Subs Hosp L2
--- NOTE | 2024-06-13 13:52 | PN.HOSP_ITS ---
Subjective Subjective Doing well, no issues overnight Objective Data Objective Data Vital Signs: Vital Signs Temp Pulse Resp BP Pulse Ox O2 Del Method O2 Flow Rate 97.9 F 66 16 134/72 H 95 Room Air 2 06/13/24 11:00 06/13/24 11:00 06/13/24 11:00 06/13/24 11:00 06/13/24 11:00 06/13/24 11:00 06/12/24 13:28 FiO2 21 06/12/24 03:45 Oxygen Flow Rate (L/min) 2 Oxygen Delivery Method Room Air Weight: 183 lb 6.793 oz Body Mass Index (BMI) 26.3 Intake & Output: Intake and Output for Last 24 Hours 06/12/24 06/13/24 06/14/24 03:59 03:59 03:59 Intake Total 1700 / 1700 1371 / 1371 Output Total 600 / 600 Balance 1700 / 1700 1371 / 1371 -600 / -600 Lab / Micro Data 06/13/24 05:55 06/13/24 05:55 Labs: Laboratory Results - last 24 hr 06/13/24 05:55: WBC 10.5, RBC 4.52 L, Hgb 14.6, Hct 43.4, MCV 96.0 H, MCH 32.3 H , MCHC 33.6, RDW Std Deviation 48.5 H, RDW Coeff of Marlene 13.9, Plt Count 487 H, MPV 9.9, Immature Gran % (Auto) 0.300, Neut % (Auto) 64.4, Lymph % (Auto) 18.7 L , [place] % (Auto) 14.2 H, Eos % (Auto) 2.0, Baso % (Auto) 0.4, Absolute Neuts (auto) 6.8, Absolute Lymphs (auto) 1.97, Nucleated RBC % 0, Sodium 140, Potassium 3.8, Chloride 110 H, Carbon Dioxide 25.0, Anion Gap 5, BUN 13, Creatinine 1.18, Estim Creat Clear Calc 66.16, Est GFR (MDRD) Af Amer 80, Est GFR (MDRD) Non-Af 66, BUN/Creatinine Ratio 11.0, Glucose 100, Calcium 8.8 Radiography Diagnostic Testing: Radiology Impression Echocardiogram 06/12/24 05:55 Interpretation Summary Mild concentric left ventricular hypertrophy. LV apical akinesis. Estimated LVEF 50%. Diastolic function is indeterminate. The left atrium is severely enlarged. Mild (1+) mitral valve insufficiency. Ordering Physician: Ruddy Paulson Performed By: Jensen Faria RCS Rhythm Strip Rhythm Strip: Sinus Rhythm Rate: 70 Ectopy: PVC(s) Physical Exam Narrative General: Alert, Oriented x3, Cooperative, No apparent distress HEENT: Atraumatic, PERRLA, EOMI, Normocephalic Oral: Moist Mucosa Neck: Supple, No JVD Lungs: Diminished, Normal air movement, No rhonchi, No wheeze, No rales Cardiovascular: Regular rate, Regular Rhythm, Normal S1, Normal S2, No murmurs Abdomen: Soft, minimal epigastric tender, Non-Distended, No Hepato-splenomegaly Extremities: No edema, Capillary Refill Less than 3 Seconds Skin: No rashes, No breakdown Musculoskeletal: No Tenderness to Palpation of Joints or Extremities Neurological: No focal neurological deficits, Motor Exam 5/5 strength throughout, Sensory exam intact to light touch and pain Psych/Mental Status: Normal Affect, Appropriate Assessment & Plan Assessment/Plan (1) Non-STEMI (non-ST elevated myocardial infarction): PLAN: Plan 1. Non-STEMI/CAD status post stent/essential HTN/HLD ? Cardiac cath demonstrated accumulation of plaque in his previous stent however cardiology was unsure whether or not this was the cause of his pain as the CT scan also demonstrated gastroduodenitis and they would like gastroenterology to evaluate him for this prior to placing another stent and subjecting him to prolonged aspirin and Plavix ? Continue with his home blood pressure medications will monitor make adjustments as necessary ? Continue Zetia 2. Gastroduodenitis ? Unclear as to the significance will consult gastroenterology for possible EGD and evaluation ? Continue with Protonix DVT: Lovenox Charges/Coding Visit Charges Inpatient E&M: 35296 Subs Hosp L2
[2024-06-13] MEDS: Lactated Ringers 1,000 ML 15 ML IV (13:54)
--- NOTE | 2024-06-13 14:17 | PRE.ANES_ITS ---
ASA Classification* ASA Classification ASA Classification: 3 Assessment & Plan Anesthesia* Anesthesia Assessment Anesthesia Assessment: Discussed sedation and/or anesthesia options, risks, benefits, and alternatives with patient/parents/legal guardian/POA. Questions invited. The patient/parents/legal guardian/POA seems to understand and agrees to proceed with anesthesia plan. Reviewed the physical assessment, medical history, allergy history and patient home medications list prior to surgery/procedure/anesthetic and documented any changes. Performed airway and anesthesia risk assessments. Anesthesia Type Anesthesia Type: MAC Anesthesia Focused Assessment* Temperature: 97.9 F Pulse Rate: 66 Blood Pressure: 134/72 Respiratory Rate: 16 Pulse Ox: 95 Fraction of Inspired Oxygen (FIO2): 21 Airway Assessment Mouth opens: >3 cm Mallampati Score: II Focused Labs Anesthesia Preop lab: CBC WBC 10.5 K/mm3 (4.4-11.0) 06/13/24 05:55 RBC 4.52 M/mm3 (4.6-6.2) L 06/13/24 05:55 Hgb 14.6 g/dL (13.0-16.5) 06/13/24 05:55 Hct 43.4 % (40-54) 06/13/24 05:55 Plt Count 487 K/mm3 (150-450) H 06/13/24 05:55 CHEMISTRY Potassium 3.8 mmol/L (3.5-5.1) 06/13/24 05:55 Sodium 140 mmol/L (136-145) 06/13/24 05:55 Magnesium 2.2 mg/dL (1.8-2.4) 07/10/17 05:25 Phosphorus 3.8 mg/dL (2.5-4.9) 07/09/17 04:33 BUN 13 mg/dL (7-18) 06/13/24 05:55 Creatinine 1.18 mg/dL (0.70-1.30) 06/13/24 05:55 Glucose 100 mg/dL (74-106) 06/13/24 05:55 TSH 1.150 uIU/mL (0.358-3.740) 06/12/24 03:31 COAG PT 15.3 SECONDS (11.7-14.9) H 06/11/24 20:45 Pre-Assessment Diagnosis/Proposed Procedure Planned Operative Procedure(s): EGD Anesthesia History Anesthesia History - public health veterinarian: Anesthesia History - public health veterinarian Hx Hospitalization Yes 08/01/19 08:52 Any Problems With Anesthesia No 06/12/24 22:21 Cholinesterase deficiency No 06/12/24 22:21 You/Your Family Experience No 06/12/24 22:21 fever (hyperthermia) with Relationship Recent Exposure to Contagious No 06/12/24 22:21 Disease Does patient have nerve No 06/12/24 22:21 stimulator Patient instructed to have device shut off --Does patient have Pacemaker or ICD? When Was Last Pacemaker Check QUESTION #4 FULL TEXT: You/Your Family Experience fever (hyperthermia) with Anesthesia Last Oral Intake Last Oral intake: Last Oral Intake NPO since Meds taken in AM with sips of water? Meds patient instructed to take am of surgery PONV PONV - public health veterinarian: PONV - public health veterinarian Female HX of Motion Sickness HX of N/V After Surgery Non-Smoker Duration of Surgery greater than 60 minutes Number of Risk Factors PONV Score Height & Weight Height & Weight: Anesthesia: Height & Weight Height 5 ft 10 in 06/12/24 16:14 Weight: 83.2 kg 06/12/24 16:14 Body Mass Index (BMI) 26.3 06/12/24 00:51 Respiratory Assessment Respiratory Assessment - public health veterinarian: Respiratory Tract Infection Hx - public health veterinarian Hx Respiratory Tract Infection No 06/12/24 22:21 STOP Sleep Apnea STOP Sleep Apnea - public health veterinarian: STOP Sleep Apnea - public health veterinarian Hx Hypertension Yes 06/12/24 00:51 Hx Sleep Apnea Yes 06/12/24 00:51 CPAP Yes 06/12/24 00:51 BIPAP No 06/12/24 00:51 Do you snore loudly (louder than talking or can be heard Do you often feel tired/ fatigued/ sleepy during daytime? Has anyone observed you stop breathing during sleep? STOP Results Positive 06/12/24 00:51 QUESTION #5 FULL TEXT : Do you snore loudly (louder than talking or can be heard through closed doors)? 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 Specify any problems Hx of Preganancy in last 3 N/A 06/12/24 00:51 Months Nurse Filling Out Transfusion AFLICKING 06/12/24 00:51 & Questions: Date: 06/12/24 06/12/24 00:51 Time: 01:05 06/12/24 00:51 Patient unable to answer at this time (ie. confused, unrespo /Reproduction History /Reproductive History - public health veterinarian: /Reproductive Hx- public health veterinarian Hx Now No 06/12/24 22:21 Gestational Age (in weeks): EDC: Hx Hx Para Hx Section SAB No 06/12/24 22:21 Active Medications Active Medications: Current Medications Generic Name Dose Route Start Last Admin Trade Name Freq PRN Reason Stop Dose Admin Acetaminophen 650 mg 06/12/24 00:51 06/12/24 21:12 Acetaminophen 325 Mg Tablet PO 650 mg Q6H PRN PRN Administration Pain 1-5/10 or Fever Carvedilol 12.5 mg 06/12/24 10:00 06/12/24 21:13 Carvedilol 12.5 Mg Tablet PO 12.5 mg BID LESLIE Administration Protocol Clopidogrel Bisulfate 75 mg 06/12/24 10:00 06/12/24 08:28 Clopidogrel Bisulfate 75 Mg Tablet PO 75 mg DAILY LESLIE Administration Ezetimibe 10 mg 06/12/24 10:00 06/12/24 12:43 Ezetimibe 10 Mg Tablet PO 10 mg DAILY LESLIE Administration Enoxaparin Sodium 85 mg 06/12/24 06:00 06/13/24 05:26 Enoxaparin 100 Mg/Ml Syringe SC Not Given BID@06,18 LESLIE Pantoprazole Sodium 40 mg/ 110 mls @ 330 mls/hr 06/12/24 00:51 06/12/24 22:54 Sodium Chloride IV Infused BID LESLIE Infusion Lactated Ringer's 1,000 mls @ 15 mls/hr 06/13/24 14:00 06/13/24 13:54 IV 15 mls/hr .Q48H LESLIE Administration Losartan Potassium 50 mg 06/12/24 10:00 06/12/24 06:53 Losartan Potassium 50 Mg Tablet PO 50 mg DAILY LESLIE Administration Protocol Morphine Sulfate 2 mg 06/12/24 00:51 Morphine 2 Mg/Ml Syringe IV Q4H PRN PRN Pain Score 6-10 Nutritional Formula (Lactose Free) 120 ml 06/12/24 17:00 06/13/24 10:32 Ensure Plus High Protein 120 Ml Liquid PO Not Given TIDCM LESLIE Ondansetron HCl 4 mg 06/12/24 00:51 Ondansetron 4 Mg/2 Ml Vial IV Q6 PRN NAUSEA/VOMITING Sodium Chloride 10 - 40 ml 06/12/24 01:06 06/12/24 21:15 0.9% Saline Lock 10 Ml Syringe IV 10 ml UD PRN Administration SALINE FLUSH PFSH Medical History Old anteroseptal myocardial infarction (07/02/17) Essential (primary) hypertension History of pneumothorax Ischemic cardiomyopathy Hyperlipidemia Tobacco abuse Atherosclerotic heart disease of kaw coronary artery without angina pectoris History of ST elevation myocardial infarction (STEMI) (07/02/17) History of cardiac arrest Home Medications ?Medication ?Instructions ?Recorded ?Last Taken ?Type carvedilol 12.5 mg tablet 12.5 mg PO BID #180 tabs 06/24/23 06/11/24 Rx clopidogrel 75 mg tablet (Plavix) 75 mg PO QDAY #90 tabs 08/08/23 06/11/24 Rx losartan 50 mg tablet 50 mg PO DAILY #90 tabs 02/20/24 06/11/24 Rx ezetimibe 10 mg tablet (Zetia) 10 mg PO DAILY #90 tabs 06/11/24 06/11/24 Rx Allergy/AdvReac Type Severity Reaction Status Date / Time No Known Allergies Allergy Verified 06/11/24 21:53 Family History Father CAD (coronary artery disease) Mother History of heart valve replacement Brother CVA (cerebral vascular accident) Aunt CAD (coronary artery disease) Uncle CAD (coronary artery disease) Surgical History History of coronary artery stent placement (07/02/17) History of left heart catheterization (08/01/19) Social History Smoking Status: Current some day smoker tobacco type: cigarettes second hand exposure: Yes alcohol intake: never substance use type: does not use caffeine: Yes what type of physical activity do you participate in: walking frequency: daily Review of Systems (Anesthesia) ROS Narrative System reviewed and no additional complaints, except as documented.
--- NOTE | 2024-06-13 14:20 | EGD_PTH ---
PATIENT: PATTY COFFMAN LOC: [facility] U#:[id number] AGE/SX: 64/M ROOM: [facility] RE06/11/[address]: Dr. Magno Day MD : 1960 BED: 1 DIS: 06/13/2024 SPEC #: [id number] RECD: 06/13/24 17:18 STATUS: RODRIGO FREEMAN #: [id number] JUSTO: 06/13/24 14:[address]: Rogers Erickson DEPT: SURGICAL PATHOLOGY RECD BY: Maryann Perez ENTERED: 06/14/24 08:18 SP TYPE: EGD BIOPSY OTHR DR: Dr. Ruddy Paulson, MD Dr. Yoel Jacome Dr., MD Dr. Rogers Lino Dr., DO Tissues: Esophagus, NOS Procedures: Special Stain Group I Surgery Specimen Level IV Alcian Blue/PAS (control) Comments: @ Ordering doctor for SUIV edited from to @ by YASH at 06/14/24 0859 @ Submitting doctor edited from to @ sushma BERRIOS at 06/14/24 0859 HEADER OPERATION: EGD with biopsy and electrohematosis PRE-OP DIAGNOSIS: Gastroduodenitis TISSUE SUBMITTED: Distal esophagus biopsy MICROSCOPIC DIAGNOSIS Distal esophagus, biopsy: Fragments of gastroesophageal mucosa with focal intestinal metaplasia (goblet cell metaplasia), consistent with Lopez's esophagus. Chronic inflammation. Negative for dysplasia. See comment. 06/15/2024 COMMENT Alcian blue/PAS stain with matched control is used in the evaluation of the specimen. Immunohistochemistry ([id number]) for P53 and Ki-67 will be performed and results will be reported separately. MICROSCOPIC DESCRIPTION Slides are reviewed. GROSS DESCRIPTION Received in fixative is one container labeled with the patient's name and designated Distal esophagus biopsy. The specimen consists of multiple irregular fragments of light ramirez soft tissue that in aggregate measure 1.5 x 0.5 x 0.1 cm. The specimen is totally submitted in one cassette. SJ.mr 06/14/2024 TC:3 CPT:65190, 06447
--- NOTE | 2024-06-13 15:49 | EX.PCM.CON.G ---
HPI Consult Data Date of Consult: 06/13/24 HPI Narrative Reason for Consultation: Chest pain HPI Narrative: PATTY COFFMAN, is a 64 M with a past medical history of CAD; s/p STEMI with cardiac arrest and subsequent LAD CONNOR (2016); still on Plavix presented to [facility] ER complaining of chest pain. Mr. Coffman reports his symptoms began approximately 2 hours prior to arrival with the abrupt-onset of chest pain that was substernal and radiating into his epigastrium, severe, 8-9/10, constant, sharp and pain only improved after two SL NTG in the ER. He also admits to associated nausea but he denies vomiting. He denies related fever, chills, diaphoresis, SOB or cough but he does admit his pain is nearly identical to the angina that heralded his previous stent placement. He states he has been taking his medications as prescribed. In the ER he was noted to have an initial elevated troponin of 146 pg/mL present on admission followed by a second troponin that increased to 190 pg/mL consistent with suspected NSTEMI complicated by CT evidence of gastroduodenitis and mild diffuse ileus with fecal retention in colon along with nonspecific Left adrenal enlargement. He was seen by cardiology and given the patient's known history of coronary disease status post remote stenting of the LAD in June 2017 I would recommend he undergo left heart catheterization. He underwent catheterization and it revealed moderate restenosis in the proximal left anterior descending stent. It was not felt that this was significant to cause an elevation in enzymes. It was thought the minor bump in his enzymes are related to the severe pain he was demonstrating upon admission. [facility] Medical History Old anteroseptal myocardial infarction (07/02/17) Essential (primary) hypertension History of pneumothorax Ischemic cardiomyopathy Hyperlipidemia Tobacco abuse Atherosclerotic heart disease of minto coronary artery without angina pectoris History of ST elevation myocardial infarction (STEMI) (07/02/17) History of cardiac arrest Home Medications ?Medication ?Instructions ?Recorded ?Last Taken ?Type carvedilol 12.5 mg tablet 12.5 mg PO BID #180 tabs 06/24/23 06/11/24 Rx clopidogrel 75 mg tablet (Plavix) 75 mg PO QDAY #90 tabs 08/08/23 06/11/24 Rx losartan 50 mg tablet 50 mg PO DAILY #90 tabs 02/20/24 06/11/24 Rx ezetimibe 10 mg tablet (Zetia) 10 mg PO DAILY #90 tabs 06/11/24 06/11/24 Rx Allergy/AdvReac Type Severity Reaction Status Date / Time No Known Allergies Allergy Verified 06/11/24 21:53 Family History Father CAD (coronary artery disease) Mother History of heart valve replacement Brother CVA (cerebral vascular accident) Aunt CAD (coronary artery disease) Uncle CAD (coronary artery disease) Surgical History History of coronary artery stent placement (07/02/17) History of left heart catheterization (08/01/19) Social History Smoking Status: Current some day smoker tobacco type: cigarettes second hand exposure: Yes alcohol intake: never substance use type: does not use caffeine: Yes what type of physical activity do you participate in: walking frequency: daily ROS Constitutional Constitutional: Reports as per HPI Eyes Eyes: Reports systems reviewed and no addt'l complaints, except as documented ENT HEENT: Reports systems reviewed and no addt'l complaints, except as documented Cardiovascular Cardiovascular: Reports as per HPI Respiratory/Chest Respiratory/Chest: Reports as per HPI Gastrointestinal Gastrointestinal: Reports as per HPI Genitourinary Genitourinary: Reports systems reviewed and no addt'l complaints, except as documented Musculoskeletal Musculoskeletal: Reports systems reviewed and no addt'l complaints, except as documented Integumentary Integumentary: Reports systems reviewed and no addt'l complaints, except as documented Neurologic Neurologic: Reports systems reviewed and no addt'l complaints, except as documented Psychiatric Psychiatric: Reports as per HPI Endocrine Endocrinology: Reports systems reviewed and no addt'l complaints, except as documented Allergic/Immunologic Allergic/Immunologic: Reports systems reviewed and no addt'l complaints, except as documented Physical Exam Narrative General: Alert, Oriented x3, Cooperative, No apparent distress HEENT: Atraumatic, PERRLA, EOMI, Normocephalic Oral: Moist Mucosa Neck: Supple, No JVD Lungs: Diminished, Normal air movement, No rhonchi, No wheeze, No rales Cardiovascular: Regular rate, Regular Rhythm, Normal S1, Normal S2, No murmurs Abdomen: Soft, minimal epigastric tender, Non-Distended, No Hepato-splenomegaly Extremities: No edema, Capillary Refill Less than 3 Seconds Skin: No rashes, No breakdown Musculoskeletal: No Tenderness to Palpation of Joints or Extremities Neurological: No focal neurological deficits, Motor Exam 5/5 strength throughout, Sensory exam intact to light touch and pain Psych/Mental Status: Normal Affect, Appropriate Lab / Micro Data 06/13/24 05:55 06/13/24 05:55 Labs: Laboratory Results - last 24 hr 06/13/24 05:55: WBC 10.5, RBC 4.52 L, Hgb 14.6, Hct 43.4, MCV 96.0 H, MCH 32.3 H, MCHC 33.6, RDW Std Deviation 48.5 H, RDW Coeff of Marlene 13.9, Plt Count 487 H, MPV 9.9, Immature Gran % (Auto) 0.300, Neut % (Auto) 64.4, Lymph % (Auto) 18.7 L, [place] % (Auto) 14.2 H, Eos % (Auto) 2.0, Baso % (Auto) 0.4, Absolute Neuts (auto) 6.8, Absolute Lymphs (auto) 1.97, Nucleated RBC % 0, Sodium 140, Potassium 3.8, Chloride 110 H, Carbon Dioxide 25.0, Anion Gap 5, BUN 13, Creatinine 1.18, Estim Creat Clear Calc 66.16, Est GFR (MDRD) Af Amer 80, Est GFR (MDRD) Non-Af 66, BUN/Creatinine Ratio 11.0, Glucose 100, Calcium 8.8 Rhythm Strip Rhythm Strip: Sinus Rhythm Rate: 70 Ectopy: PVC(s) Imaging Radiology Impression Echocardiogram 06/12/24 05:55 Interpretation Summary Mild concentric left ventricular hypertrophy. LV apical akinesis. Estimated LVEF 50%. Diastolic function is indeterminate. The left atrium is severely enlarged. Mild (1+) mitral valve insufficiency. Ordering Physician: Ruddy Paulson Performed By: Jensen Faria RCS Assessment & Plan Assessment/Plan (1) Chest pain: QUALIFIERS: Chest pain type: unspecified Qualified Code(s): R07.9 - Chest pain, unspecified PLAN: 61-year-old gentleman with a history of non-ST segment elevation LA, CAD status post PTCA with stents status post anteroseptal myocardial infarction presented with chest pain. He underwent cardiac catheterization and was felt that there was no intervention that was needed in his chest pain was not secondary to acute coronary event. The differential diagnosis for noncardiac chest pain would include severe erosive esophagitis, esophageal spasm, esophageal dysmotility, achalasia. He was also discovered to have some inflammation in his duodenum on imaging. I do not think this is contributing to his symptoms but he could have atypical peptic ulcer disease. He should undergo upper endoscopy to evaluate his upper GI tract. He was explained alternatives, risk, benefits include not withstanding bleeding, infection, sepsis, perforation, need for emergent urgent . He will have an ASA of 3. Charges/Coding Visit Charges Inpatient E&M: 87958 Init Hosp L3
--- NOTE | 2024-06-13 15:50 | PCM.POST.ANE ---
Anesthesia: Postop Eval I Current Vital Signs Temperature: 98.1 F Pulse Rate: 74 Blood Pressure: 119/79 Respiratory Rate: 18 Pulse Ox: 93 Assessment Airway patent: Yes Spontaneous unlabored respirations: Yes nausea: No Vomiting: No Anesthesia Complication: No Fluid Hydration Crystalloid volume administer (ml): 500 Total IV fluid infused: 500 Progress Note Anesthesia document: Postop Eval 1 completed: Yes
--- NOTE | 2024-06-13 15:58 | OP.EGD_ITS ---
Patient Name: Amadou Nelson Procedure Date: 06/13/2024 3:01 PM Date of : 1960 Age: 64 Procedure: Upper GI endoscopy Indications: Epigastric abdominal pain Providers: Rogers Erickson DO Medicines: Monitored Anesthesia Care Complications: No immediate complications. Procedure: Pre-Anesthesia Assessment: - Prior to the procedure, a History and Physical was performed, and patient medications and allergies were reviewed. The patient is competent. The risks and benefits of the procedure and the sedation options and risks were discussed with the patient. All questions were answered and informed consent was obtained. Patient identification and proposed procedure were verified by the physician in the pre-procedure area. Mental Status Examination: alert and oriented. Airway Examination: normal oropharyngeal airway and neck mobility. Respiratory Examination: clear to auscultation. CV Examination: normal. Prophylactic Antibiotics: The patient does not require prophylactic antibiotics. Prior Anticoagulants: The patient has taken no anticoagulant or antiplatelet agents except for NSAID medication. ASA Grade Assessment: III - A patient with severe systemic disease. After reviewing the risks and benefits, the patient was deemed in satisfactory condition to undergo the procedure. The anesthesia plan was to use moderate sedation / analgesia (conscious sedation). Immediately prior to administration of medications, the patient was re-assessed for adequacy to receive sedatives. The heart rate, respiratory rate, oxygen saturations, blood pressure, adequacy of pulmonary ventilation, and response to care were monitored throughout the procedure. The physical status of the patient was re-assessed after the procedure. After obtaining informed consent, the endoscope was passed under direct vision. Throughout the procedure, the patient's blood pressure, pulse, and oxygen saturations were monitored continuously. The Endoscope was introduced through the mouth, and advanced to the second part of duodenum. Scope In: 3:36:41 PM Scope Out: 3:42:51 PM Total Procedure Duration Time 0 hours 6 minutes 10 seconds Findings: LA Grade C (one or more mucosal breaks continuous between tops of 2 or more mucosal folds, less than 75% circumference) esophagitis with bleeding was found 35 to 43 cm from the incisors. Coagulation for hemostasis using heater probe was successful. Estimated blood loss was minimal. The esophagus and gastroesophageal junction were examined with white light and narrow band imaging (NBI) from a forward view and retroflexed position. There were esophageal mucosal changes consistent with long-segment Lopez's esophagus. These changes involved the mucosa at the upper extent of the gastric folds (42 cm from the incisors) extending to the Z-line (42 cm from the incisors). [place]-colored mucosa was present. The maximum longitudinal extent of these esophageal mucosal changes was 7 cm in length. Mucosa was biopsied with a cold forceps for histology in a targeted manner at intervals of 1 cm in the lower third of the esophagus. One specimen bottle was sent to pathology. Verification of patient identification for the specimen was done. Estimated blood loss was minimal. A medium-sized hiatal hernia was present. No gross lesions were noted in the entire examined stomach. Localized mild inflammation characterized by erosions and erythema was found in the duodenal bulb. Impression: - LA Grade C erosive esophagitis with bleeding. Treated with a heater probe. 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 Biopsied. - Medium-sized hiatal hernia. - No gross lesions in the entire stomach. - Bile duodenitis. Recommendation: - [facility]. - Resume previous diet. - Continue present medications. - Await pathology results. - Use Prilosec (omeprazole) 40 mg PO BID indefinitely. Procedure Code(s): --- Professional --- 44795, 59, Esophagogastroduodenoscopy, flexible, transoral; with control of bleeding, any method 48451, 51, Esophagogastroduodenoscopy, flexible, transoral; with biopsy, single or multiple CPT copyright 2021 [employer]. All rights reserved. The codes documented in this report are preliminary and upon operations research engineer review may be revised to meet current compliance requirements. Rogers Erickson DO 06/13/2024 3:58:17 PM This report has been signed electronically. Number of Addenda: 0 Note Initiated On: 06/13/2024 3:01 PM
--- NOTE | 2024-06-13 15:59 | OP.CCLET_ITS ---
06/13/2024 Yoel Cortez Re : Upper GI endoscopy procedure for Amadou Nelson Dear [place] This procedure was performed on Thursday, June 13, 2024. My impressions and recommendations are as follows: Impressions : - LA Grade C erosive esophagitis with bleeding. Treated with a heater probe. 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 Biopsied. - Medium-sized hiatal hernia. - No gross lesions in the entire stomach. - Bile duodenitis. Recommendations : - Return patient to [facility] for [facility] care. - Resume previous diet. - Continue present medications. - Await pathology results. - Use Prilosec (omeprazole) 40 mg PO BID indefinitely. My findings are described in the full procedure note, which is enclosed. If I can be of further assistance, please feel free to contact me at . Sincerely, Rogers Erickson, 06/13/2024 3:58:17 PM This report has been signed electronically.
[2024-06-13] MEDS: Carvedilol 12.5 MG Tablet PO (16:44)
[2024-06-13] MEDS: Clopidogrel Bisulfate 75 MG Tablet PO (16:45)
[2024-06-13] MEDS: Ezetimibe 10 MG Tablet PO (16:45)
[2024-06-13] MEDS: Losartan Potassium 50 MG Tablet PO (16:45)
[2024-06-13] MEDS: Pantoprazole Sodium 40 MG in 0.9% Normal Saline (100mL MB+) 100 ML 330 MG IV (16:46)
[2024-06-13] MEDS: Enoxaparin 100 MG/ML Syringe 85 MG SC (16:46)
--- NOTE | 2024-06-13 17:05 | POSTOPAN2_ITS ---
Anesthesia Postop Eval I Sum Postop Eval Completion status Anesthesia document: Postop Eval 1 completed: Yes Anesthesia Postop Eval I Summary Anesthesia Postop Eval I Summary: Anesthesia Postop Eval I: Assessment Summary Airway patent Yes 06/13/24 15:50 INSURANCE BUSINESS ANALYST.[email or web address] Spontaneous unlabored Yes 06/13/24 15:50 INSURANCE BUSINESS ANALYST.CSIR respirations Mental status nausea No 06/13/24 15:50 INSURANCE BUSINESS ANALYST.CSIR Vomiting No 06/13/24 15:50 INSURANCE BUSINESS ANALYST.CSIR Anesthesia Postop Eval I: Fluid Summary Crystalloid volume administer 500 06/13/24 15:50 INSURANCE BUSINESS ANALYST.CSIR (ml) Colloids volume administered ( ml) Blood Product volume administered (ml) Total IV fluid infused 500 06/13/24 15:50 INSURANCE BUSINESS ANALYST.CSIR Anesthesia Postop Eval I: Summary Notes Anesthesia Complication No 06/13/24 15:50 INSURANCE BUSINESS ANALYST.CSIR Anesthesia Complication Comment: Post-operative progress note Anesthesia: Postop Eval II Evaluation Mental status: Awake and Calm Pain Level: 0 nausea: No Vomiting: No Complications Anesthesia Complication: No
--- NOTE | 2024-06-13 17:05 | PCM.POSTANE2 ---
Anesthesia Postop Eval I Sum Postop Eval Completion status Anesthesia document: Postop Eval 1 completed: Yes Anesthesia Postop Eval I Summary Anesthesia Postop Eval I Summary: Anesthesia Postop Eval I: Assessment Summary Airway patent Yes 06/13/24 15:50 COMPUTER AIDED DESIGN OPERATOR.CSIR Spontaneous unlabored Yes 06/13/24 15:50 COMPUTER AIDED DESIGN OPERATOR.CSIR respirations Mental status nausea No 06/13/24 15:50 COMPUTER AIDED DESIGN OPERATOR.CSIR Vomiting No 06/13/24 15:50 COMPUTER AIDED DESIGN OPERATOR.CSIR Anesthesia Postop Eval I: Fluid Summary Crystalloid volume administer 500 06/13/24 15:50 COMPUTER AIDED DESIGN OPERATOR.CSIR (ml) Colloids volume administered ( ml) Blood Product volume administered (ml) Total IV fluid infused 500 06/13/24 15:50 COMPUTER AIDED DESIGN OPERATOR.CSIR Anesthesia Postop Eval I: Summary Notes Anesthesia Complication No 06/13/24 15:50 COMPUTER AIDED DESIGN OPERATOR.CSIR Anesthesia Complication Comment: Post-operative progress note Anesthesia: Postop Eval II Evaluation Mental status: Awake and Calm Pain Level: 0 nausea: No Vomiting: No Complications Anesthesia Complication: No
--- NOTE | 2024-06-13 17:58 | DCINST_ITS ---
Discharge Instructions Diet Discharge Diet: Low fat / Low cholesterol Activity Discharge Activity: Return to Normal Activity Dressing / Incision Call your doctor if you observe: Fever of 101 or Higher, Shortness of breath, Dizziness, Fainting spells, Swelling in the ankles, Chest pain and Increased palpitations (irregular heartbeat) Follow Up Care Test Results: Test results from this visit will be discussed in further detail at your follow- up appointment, if applicable. Discharge Plan Admission Admit Date/Time: 06/11/24 23:31 Attending Provider: Magno Day Primary Care Provider: Yoel Cortez Consulting Providers: Gómez Osorio; Ruddy Paulson; Rogers Erickson Discharge Orders/Prescriptions Prescriptions: New pantoprazole [Protonix] 40 mg tablet,delayed release (DR/EC) 40 mg PO BID 30 Days Qty: 60 3RF Continued carvedilol 12.5 mg tablet 12.5 mg PO BID Qty: 180 3RF Patient Comments: blood pressure/heart clopidogrel [Plavix] 75 mg tablet 75 mg PO QDAY Qty: 90 3RF losartan 50 mg tablet 50 mg PO DAILY Qty: 90 3RF Patient Comments: blood pressure/heart ezetimibe [Zetia] 10 mg tablet 10 mg PO DAILY Qty: 90 0RF Referrals / Follow Up: Georges Aleman MD [Med Staff - Active Staff] - Within 3 Months Yoel Cortez DO [Primary Care Provider] - Within 1 Week Rogers Erickson DO [Med Staff - Active Staff] - Within 3 Months Disposition Disposition (needs filled in before D/C Order can be placed): Home, Self Care
--- NOTE | 2024-06-13 18:04 | PCM.DC.SUM ---
Providers Date of Admission: 06/11/24 Primary Care Physician: Dr. Yoel Cortez, Consultations 06/12/24 00:51 Consult: Cardiology Routine Consulting Provider: Gómez Osorio Reason for Consult: Chest Pain EMERGENT Consult: No Notified: Yes Date Notified: 06/11/24 Time Notified: 23:33 Method of Notification: ED Physician Initiated Method of Consult:: In-Person 06/12/24 10:35 Consult: Gastroenterology Routine Consulting Provider: Rogers Erickson Reason for Consult: gastroduodenitis eval and possible scope EMERGENT Consult: No Notified: Yes Date Notified: 06/12/24 Time Notified: 10:35 Method of Notification: Text Reason For Visit: NSTEMI, GASTRDUDENITIS AND HISTORY OF STEMI WITH Diagnosis Discharge Diagnosis (1) Chest pain: Status: Acute Code(s): R07.9 - Chest pain, unspecified Qualifiers: Chest pain type: unspecified Qualified Code(s): R07.9 - Chest pain, unspecified Plan 1 Medications at Discharge Home Medications carvedilol 12.5 mg tablet 12.5 mg PO BID #180 tabs 06/24/23 clopidogrel 75 mg tablet (Plavix) 75 mg PO QDAY #90 tabs 08/08/23 losartan 50 mg tablet 50 mg PO DAILY #90 tabs 02/20/24 ezetimibe 10 mg tablet (Zetia) 10 mg PO DAILY #90 tabs 06/11/24 pantoprazole 40 mg tablet,delayed release (Protonix) 40 mg PO BID 30 days #60 tabs 06/13/24 Hospital Course Operations None Procedures 2-D Echocardiogram, Cardiac catheterization and EGD Summary of Care Provided Minutes Spent on Discharge: 35 Hospital Course: Per HPI: PATTY COFFMAN, is a 64 M with a past medical history of essential hypertension, hyperlipidemia; on Ezetimibe, obesity; with BMI of 30.5 this admission, [place], history of tobacco abuse, CAD; s/p STEMI with cardiac arrest and subsequent LAD CONNOR (2016); still on Plavix, history of ischemic cardiomyopathy, history of PTX and OA who presents to [facility] ER complaining of chest pain. Mr. Coffman reports his symptoms began approximately 2 hours prior to arrival with the abrupt-onset of chest pain that was substernal and radiating into his epigastrium, severe, 8-9/10, constant, sharp and pain only improved after two SL NTG in the ER. He also admits to associated nausea but he denies vomiting. He denies related fever, chills, diaphoresis, SOB or cough but he does admit his pain is nearly identical to the angina that heralded his previous stent placement. He states he has been taking his medications as prescribed. In the ER he was noted to have an initial elevated troponin of 146 pg/mL present on admission followed by a second troponin that increased to 190 pg/mL consistent with suspected NSTEMI complicated by CT evidence of gastroduodenitis and mild diffuse ileus with fecal retention in colon along with nonspecific Left adrenal enlargement and he was then admitted to the PCU for ongoing care for a stay that is expected to extend beyond 2 midnights. Hospital Course: 1. Non-STEMI/CAD status post stent/essential HTN/HLD?64-year-old male presented to the hospital complaining of chest pain. He has a history of cardiac stent so an echo was performed which showed a normal EF and LV apical akinesis. Heart cath demonstrated accumulation of plaque in his previous stent however it was not significant enough at this time for intervention. It was also noted that there was possible duodenitis or inflammation in his duodenum and stomach that cardiology felt should be worked up first in case he would be needing dual antiplatelets if it were to have to proceed with a stent. He is feeling much better from a chest pain perspective and would like to go home today, he expressed understanding the risk and benefits of going home. Recommend outpatient follow-up with PCP and cardiology on discharge. 2. Grade C esophagitis with Lopez's esophagus?based on the CT scan of duodenitis gastroenterology was consulted, the patient was admitted with PPI on board, he had an EGD today which demonstrated biopsies were taken. Grade C esophagitis with bleeding that was treated with cautery. Concern for Lopez's esophagus and biopsies were taken. Gastroenterology is okay with discharge today on a twice daily PPI indefinitely. He will need to follow-up with gastroenterology as an outpatient. Physical Exam Narrative General: Alert, Oriented x3, Cooperative, No apparent distress HEENT: Atraumatic, PERRLA, EOMI, Normocephalic Oral: Moist Mucosa Neck: Supple, No JVD Lungs: Diminished, Normal air movement, No rhonchi, No wheeze, No rales Cardiovascular: Regular rate, Regular Rhythm, Normal S1, Normal S2, No murmurs Abdomen: Soft, minimal epigastric tender, Non-Distended, No Hepato-splenomegaly Extremities: No edema, Capillary Refill Less than 3 Seconds Skin: No rashes, No breakdown Musculoskeletal: No Tenderness to Palpation of Joints or Extremities Neurological: No focal neurological deficits, Motor Exam 5/5 strength throughout, Sensory exam intact to light touch and pain Psych/Mental Status: Normal Affect, Appropriate Weight / BMI Weight Weight: 183 lb 6.793 oz Body Mass Index (BMI) 26.3 ABG / Lab / Microbiology Data 06/13/24 05:55 06/13/24 05:55 Laboratory: Laboratory Results - last 24 hr 06/13/24 05:55: WBC 10.5, RBC 4.52 L, Hgb 14.6, Hct 43.4, MCV 96.0 H, MCH 32.3 H, MCHC 33.6, RDW Std Deviation 48.5 H, RDW Coeff of Marlene 13.9, Plt Count 487 H, MPV 9.9, Immature Gran % (Auto) 0.300, Neut % (Auto) 64.4, Lymph % (Auto) 18.7 L, Randolph % (Auto) 14.2 H, Eos % (Auto) 2.0, Baso % (Auto) 0.4, Absolute Neuts (auto) 6.8, Absolute Lymphs (auto) 1.97, Nucleated RBC % 0, Sodium 140, Potassium 3.8, Chloride 110 H, Carbon Dioxide 25.0, Anion Gap 5, BUN 13, Creatinine 1.18, Estim Creat Clear Calc 66.16, Est GFR (MDRD) Af Amer 80, Est GFR (MDRD) Non-Af 66, BUN/Creatinine Ratio 11.0, Glucose 100, Calcium 8.8 Radiography Diagnostic Testing: Radiology Impression Echocardiogram 06/12/24 05:55 Interpretation Summary Mild concentric left ventricular hypertrophy. LV apical akinesis. Estimated LVEF 50%. Diastolic function is indeterminate. The left atrium is severely enlarged. Mild (1+) mitral valve insufficiency. Ordering Physician: Ruddy Paulson Performed By: Jensen Faria RCS D/C Instructions Discharge Diet: Low fat / Low cholesterol Call your doctor if you observe: Fever of 101 or Higher, Shortness of breath, Dizziness, Fainting spells, Swelling in the ankles, Chest pain and Increased palpitations (irregular heartbeat) Meaningful Use Info Meaningful Use Meaningful Use Diagnoses (Choose all that apply): None applicable Ischemic Stroke Statin Dosing Therapy Reference: STATIN DOSE THERAPY REFERENCE: * Patients > 75 years receive moderate or high dose statin therapy. * Patients 75 years or YOUNGER should receive HIGH intensity statin dose unless contraindicated. You will be required to document reason for non-treatment if statin daily dose does not meet guidelines. HIGH DOSE STATIN THERAPY DAILY Atorvastatin > than or = to 40 mg Rosuvastatin > than or = to 20 mg Amlodipine + Atorvastatin > than or = to 2.5/40 mg Ezetimibe + Simvastatin 10/80 mg Simvastatin 80mg Discharge Plan Admission Admit Date/Time: 06/11/24 23:31 Attending Provider: Magno Day Primary Care Provider: Yoel Cortez Consulting Providers: Gómez Osorio; Ruddy Paulson; Rogers Erickson Discharge Orders/Prescriptions Prescriptions: New pantoprazole [Protonix] 40 mg tablet,delayed release (DR/EC) 40 mg PO BID 30 Days Qty: 60 3RF Continued carvedilol 12.5 mg tablet 12.5 mg PO BID Qty: 180 3RF Patient Comments: blood pressure/heart clopidogrel [Plavix] 75 mg tablet 75 mg PO QDAY Qty: 90 3RF losartan 50 mg tablet 50 mg PO DAILY Qty: 90 3RF Patient Comments: blood pressure/heart ezetimibe [Zetia] 10 mg tablet 10 mg PO DAILY Qty: 90 0RF Referrals / Follow Up: Georges Aleman MD [Med Staff - Active Staff] - Within 3 Months Yoel Cortez DO [Primary Care Provider] - Within 1 Week Friend,Rogers, DO [Med Staff - Active Staff] - Within 3 Months Disposition Disposition (needs filled in before D/C Order can be placed): Home, Self Care Charges/Coding Visit Charges Inpatient E&M: 49523 Disch Hosp >30min
== END 2024-06-13 20:30 | disposition home or self-care (01) | DRG 380 ==
LOC: ED 23:20 → PCU 23:57
PROVIDERS: Internal Medicine Gastroenterology; Admitting Provider Internal Medicine; Emergency Provider Emergency Medicine; PCP Family Medicine; Visit Provider Family Medicine
PROC: 0DJ08ZZ Inspection of Upper Intestinal Tract, Via Natural or Artificial Opening Endoscopic (ICD-10-PCS; CPT 43235; principal; 2024-06-13 14:15)
DX: K22.11 Ulcer of esophagus with bleeding (principal); I21.4 Non-ST elevation (NSTEMI) myocardial infarction; K56.7 Ileus, unspecified; T82.855A Stenosis of coronary artery stent, initial encounter; K26.9 Duodenal ulcer, unspecified as acute or chronic, without hemorrhage or perforation; I10 Essential (primary) hypertension; E66.9 Obesity, unspecified; G47.33 Obstructive sleep apnea (adult) (pediatric); E78.00 Pure hypercholesterolemia, unspecified; I25.5 Ischemic cardiomyopathy; K29.80 Duodenitis without bleeding; I25.10 Atherosclerotic heart disease of native coronary artery without angina pectoris; K44.9 Diaphragmatic hernia without obstruction or gangrene; F17.210 Nicotine dependence, cigarettes, uncomplicated; I25.2 Old myocardial infarction; Y71.8 Miscellaneous cardiovascular devices associated with adverse incidents, not elsewhere classified; Z68.30 Body mass index [BMI] 30.0-30.9, adult; Z79.02 Long term (current) use of antithrombotics/antiplatelets; Z79.899 Other long term (current) drug therapy; Z95.5 Presence of coronary angioplasty implant and graft
CPT/HCPCS: 36415; 71045; 74177; 80048; 80061; 80076; 81001; 83605; 83690; 84443; 84484; 85025; 85347; 85379; 85610; 85730; 88305; 88312; 88341; 88342; 93005; 93306; 93454; 94002; 99152; 99153; 99285; 99406; J7030; J7120; Q9957; Q9967; A4216; C1769; C1887; C1894; J2405

== ENCOUNTER 2024-09-11 18:02 | Inpatient (IN) | payer OTHER, SELFPAY ==
[2017-07-04 12:04] VITALS: BMI 29.2
[2024-09-11] VITALS (8 sets, daily range): BP systolic 140–169; BP diastolic 72–96; PULSE 61–76; RESP 18–20; TEMP 36.4–36.8; O2SAT 92–97; BMI 31.2; BMI 29.0
[2024-09-11 18:19] LABS: Absolute Lymphocyte Count 2.16 X10^3/uL (0.83-4.51); Absolute Neutrophil Count 5.1 X10^3/uL (2.0-7.7); Basophil# 0.05 X10^3/uL; Basophil% 0.6 % (0-1); Eosinophil# 0.32 X10^3/uL; Eosinophils% 3.7 % (0-5); Hematocrit 39.5 % (40-54); Hemoglobin 13.4 g/dL (13.0-16.5); Lymphocyte # 2.16 X10^3/ul (0.83-4.51); Lymphocyte % 24.8 % (19-41); Mean Corp Hgb Conc 33.9 g/dL (32-36); Mean Corpuscular Hgb 33.2 pg (27.0-32.0); Mean Corpuscular Volume 97.8 fL (80-94); Mean Platelet Vol. 9.6 fl (6.2-12.0); Monocyte# 1.02 X10^3/uL; Monocyte% 11.7 % (0-10); NRBC Flagged by Analyzer 0 % (0-5); Neutrophil # 5.14 X10^3/uL (2.7-7.7); Platelet Count 513 K/mm3 (150-450); RBC Distribution Width CV 13.8 % (11.6-14.6); RBC Distribution Width SD 50.3 fl (35.1-43.9); Red Blood Count 4.04 M/mm3 (4.6-6.2); White Blood Count 8.7 K/mm3 (4.4-11.0)
[2024-09-11 18:30] LABS: International Normalized Ratio 1.2; Prothrombin Time (Protime)PT. 15.3 SECONDS (11.7-14.9)
[2024-09-11 18:32] LABS: Partial Thromboplast Time 30.9 Seconds (24.1-36.2)
[2024-09-11 18:43] LABS: Anion Gap 4 (5-15); BUN 18 mg/dL (7-18); BUN/Creat Ratio 12.6 RATIO (10-20); Calcium,Total 8.4 mg/dL (8.5-10.1); Chloride 110 mmol/L (98-107); Creatinine, Serum 1.43 mg/dL (0.70-1.30); EST Glomerular Filtration Rate 53 mL/min (>60); Est Glom Filt Rate - Afr Amer 64 mL/min (>60); Estimated Creatinine Clearance 56.76 ml/min; Glucose 106 mg/dL (74-106); Potassium 3.8 mmol/L (3.5-5.1); Sodium Level 141 mmol/L (136-145); Troponin-I HS 34 pg/mL (3.0-78.0)
[2024-09-11] MEDS: Aspirin 81 MG TAB.CHEW 324 MG PO (18:50)
[2024-09-11] MEDS: Atorvastatin Calcium 80 MG Tablet PO (21:12)
[2024-09-11] MEDS: 0.9% Normal Saline (1000mL) 1,000 ML 100 ML IV (21:12)
[2024-09-11] MEDS: 0.9% Saline Lock 10 ML Syringe IV (21:13)
[2024-09-11] MEDS: Pantoprazole Sodium 40 MG Tablet PO (21:13)
[2024-09-11 23:03] LABS: Troponin-I HS 41 pg/mL (3.0-78.0)
[2024-09-12] VITALS (7 sets, daily range): BP systolic 127–154; BP diastolic 80–101; PULSE 61–97; RESP 14–18; TEMP 36.6–36.9; O2SAT 93–95; BMI 29.0
[2024-09-12 00:52] LABS: Troponin-I HS 43 pg/mL (3.0-78.0)
[2024-09-12 06:08] LABS: Absolute Lymphocyte Count 2.04 X10^3/uL (0.83-4.51); Absolute Neutrophil Count 3.4 X10^3/uL (2.0-7.7); Basophil# 0.06 X10^3/uL; Basophil% 0.9 % (0-1); Eosinophil# 0.37 X10^3/uL; Eosinophils% 5.4 % (0-5); Hematocrit 40.2 % (40-54); Hemoglobin 13.2 g/dL (13.0-16.5); Lymphocyte # 2.04 X10^3/ul (0.83-4.51); Lymphocyte % 29.6 % (19-41); Mean Corp Hgb Conc 32.8 g/dL (32-36); Mean Corpuscular Hgb 32.2 pg (27.0-32.0); Mean Platelet Vol. 9.6 fl (6.2-12.0); Monocyte% 14.5 % (0-10); NRBC Flagged by Analyzer 0 % (0-5); Neutrophil # 3.41 X10^3/uL (2.7-7.7); Neutrophil % 49.5 % (47-70); Platelet Count 470 K/mm3 (150-450); RBC Distribution Width CV 13.8 % (11.6-14.6); RBC Distribution Width SD 50.4 fl (35.1-43.9); White Blood Count 6.9 K/mm3 (4.4-11.0)
[2024-09-12 06:54] LABS: ALB/GLOB Ratio 1.2 RATIO (0.9-2.4); AST(SGOT) 15 U/L (15-37); Alanine Aminotransfer ALT/SGPT 23 U/L (16-61); Albumin, Serum 3.2 g/dL (3.2-5.0); Alkaline Phosphatase 75 U/L (45-117); Anion Gap 3 (5-15); BUN 14 mg/dL (7-18); BUN/Creat Ratio 10.8 RATIO (10-20); Chloride 113 mmol/L (98-107); Cholesterol 108 mg/dL (200); EST Glomerular Filtration Rate 59 mL/min (>60); Est Glom Filt Rate - Afr Amer 72 mL/min (>60); Estimated Creatinine Clearance 66.17 ml/min; Globulin 2.7 g/dL (2.2-4.2); Glucose 103 mg/dL (74-106); High Density Lipoprotein 52 mg/dL; Potassium 3.9 mmol/L (3.5-5.1); Protein, Total 5.9 g/dL (6.4-8.2); Sodium Level 140 mmol/L (136-145); Triglycerides 49 mg/dL; Very Low Density Lipoprotein 10 mg/dL (5-40)
[2024-09-12 08:16] LABS: Hemoglobin A1c 5.5 % (3.8-5.6)
[2024-09-12] MEDS: Aspirin 81 MG TAB.CHEW PO (09:30)
[2024-09-12] MEDS: Ezetimibe 10 MG Tablet PO (09:30)
[2024-09-12] MEDS: Clopidogrel Bisulfate 75 MG Tablet PO (09:30)
[2024-09-12] MEDS: Pantoprazole Sodium 40 MG Tablet PO ×2 (09:33→22:13)
[2024-09-12] MEDS: Enoxaparin 40 MG/0.4 ML Syringe SC (14:56)
[2024-09-12] MEDS: 0.9% Saline Lock 10 ML Syringe IV (22:13)
[2024-09-12] MEDS: Atorvastatin Calcium 80 MG Tablet PO (22:13)
[2024-09-13 01:13] VITALS: BMI 29.0
[2024-09-13 01:58] VITALS: BP 131/79; PULSE 60; RESP 16; TEMP 36.6; O2SAT 94
[2024-09-13 04:38] VITALS: BMI 29.0
[2024-09-13 05:57] VITALS: BP 131/88; PULSE 73; RESP 16; TEMP 36.6; O2SAT 95
[2024-09-13 07:22] LABS: Absolute Lymphocyte Count 1.91 X10^3/uL (0.83-4.51); Absolute Neutrophil Count 3.8 X10^3/uL (2.0-7.7); Basophil# 0.06 X10^3/uL; Basophil% 0.8 % (0-1); Eosinophil# 0.37 X10^3/uL; Eosinophils% 5.2 % (0-5); Hematocrit 40.3 % (40-54); Hemoglobin 13.7 g/dL (13.0-16.5); Lymphocyte # 1.91 X10^3/ul (0.83-4.51); Lymphocyte % 26.8 % (19-41); Mean Corpuscular Hgb 32.9 pg (27.0-32.0); Mean Corpuscular Volume 96.9 fL (80-94); Mean Platelet Vol. 9.9 fl (6.2-12.0); NRBC Flagged by Analyzer 0 % (0-5); Neutrophil # 3.77 X10^3/uL (2.7-7.7); Neutrophil % 52.9 % (47-70); Platelet Count 478 K/mm3 (150-450); RBC Distribution Width SD 50.4 fl (35.1-43.9); Red Blood Count 4.16 M/mm3 (4.6-6.2); White Blood Count 7.1 K/mm3 (4.4-11.0)
[2024-09-13 07:46] LABS: Anion Gap 4 (5-15); BUN 13 mg/dL (7-18); BUN/Creat Ratio 9.4 RATIO (10-20); Calcium,Total 8.6 mg/dL (8.5-10.1); Chloride 112 mmol/L (98-107); Creatinine, Serum 1.39 mg/dL (0.70-1.30); EST Glomerular Filtration Rate 55 mL/min (>60); Est Glom Filt Rate - Afr Amer 66 mL/min (>60); Estimated Creatinine Clearance 61.95 ml/min; Glucose 96 mg/dL (74-106); Potassium 3.9 mmol/L (3.5-5.1); Sodium Level 141 mmol/L (136-145)
[2024-09-13 07:53] VITALS: BP 149/92; PULSE 64; RESP 18; TEMP 36.2; O2SAT 95; O2SAT 96
[2024-09-13] MEDS: Ezetimibe 10 MG Tablet PO (08:59)
[2024-09-13] MEDS: Clopidogrel Bisulfate 75 MG Tablet PO (08:59)
[2024-09-13] MEDS: Pantoprazole Sodium 40 MG Tablet PO (08:59)
[2024-09-13] MEDS: APIXABAN 5 MG TABLET PO (09:00)
[2024-09-13 11:07] VITALS: BP 148/84; PULSE 73; RESP 18; TEMP 36.3; O2SAT 97
== END 2024-09-13 12:25 | disposition home or self-care (01) | DRG 65 ==
LOC: ED 18:52 → PCU 19:46
PROVIDERS: Admitting Provider Family Medicine; Emergency Provider Emergency Medicine; PCP Family Medicine; Visit Provider Student in an Organized Health Care Education/Training Program
DX: I63.9 Cerebral infarction, unspecified (principal); G81.94 Hemiplegia, unspecified affecting left nondominant side; K42.0 Umbilical hernia with obstruction, without gangrene; I51.3 Intracardiac thrombosis, not elsewhere classified; N18.30 Chronic kidney disease, stage 3 unspecified; I12.9 Hypertensive chronic kidney disease with stage 1 through stage 4 chronic kidney disease, or unspecified chronic kidney disease; E66.9 Obesity, unspecified; E78.5 Hyperlipidemia, unspecified; G47.33 Obstructive sleep apnea (adult) (pediatric); I25.10 Atherosclerotic heart disease of native coronary artery without angina pectoris; K21.9 Gastro-esophageal reflux disease without esophagitis; I25.5 Ischemic cardiomyopathy; I25.2 Old myocardial infarction; R29.705 NIHSS score 5; R29.810 Facial weakness; R47.81 Slurred speech; Z68.31 Body mass index [BMI] 31.0-31.9, adult; Z95.5 Presence of coronary angioplasty implant and graft; Z79.02 Long term (current) use of antithrombotics/antiplatelets; Z79.899 Other long term (current) drug therapy; Z86.74 Personal history of sudden cardiac arrest; Z87.891 Personal history of nicotine dependence
CPT/HCPCS: 36415; 70450; 70496; 70498; 70551; 71045; 73120; 80048; 80053; 80061; 83036; 83735; 84443; 84484; 85025; 85610; 85730; 92610; 93005; 93306; 94668; 94762; 97802; 99285; 99406; J7030; Q9957; Q9967; A4216; C8929

== ENCOUNTER → 2024-11-05 | Outpatient (CLI) | payer SELFPAY, OTHER ==
[2017-07-04 12:04] VITALS: BMI 29.2
--- NOTE | 2024-11-05 06:16 | ECHOLC_ITS ---
Reason For Study: ENSURE NO LV THROMBUS Procedure This was a limited 2D transthoracic echocardiogram. Contrast injection was performed. The study was technically difficult. Exam performed in department. Left Ventricle Normal LV size. Apical false tendon noted. No apical thrombus noted. The left ventricular ejection fraction is 40 %. [place] : Dyskinetic. There are regional wall motion abnormalities as specified. Right Ventricle Normal RV size. Normal systolic function. Atria The left atrium is mildly enlarged. The right atrium is mildly enlarged. Mitral Valve Normal mitral valve. Tricuspid Valve Normal tricuspid valve. Aortic Valve Trisinus/trileaflet aortic valve. Great Vessels Normal aortic root. The pulmonary artery is normal size. Inferior vena cava collapse with respiration. Pericardium/Pleural No pericardial effusion. Medication Diluted definity 4ml given slow IV push to enhance endocardial definition. MMode/2D Measurements & Calculations LVIDd: 5.5 cm IVSd: 1.3 cm LVOT diam: 2.1 cm LVIDs: 4.4 cm LVPWd: 1.1 cm LVOT area: 3.5 cm2 FS: 20.2 % LAV(MOD-bp): 90.6 ml LVAd ap4: 48.2 cm2 SV(MOD-sp4): 72.2 ml LAV(MOD-bp) Indexed: 43.1 ml/m2 LVLd ap4: 8.9 cm SI(MOD-sp4): 34.4 ml/m2 LAV(MOD-sp2): 86.9 ml EDV(MOD-sp4): 208.0 ml LAV(MOD-sp4): 94.0 ml EDV(sp4-el): 221.1 ml LVAs ap4: 35.9 cm2 LVLs ap4: 7.8 cm ESV(MOD-sp4): 135.8 ml ESV(sp4-el): 141.4 ml EF(MOD-sp4): 34.7 % EF(sp4-el): 36.0 % SV(sp4-el): 79.7 ml LA A4 area: 26.4 cm2 LA dimension(2D): 5.0 cm RA A4 area: 11.4 cm2 ECHO/Echo Limited w/Contrast Interpretation Summary The left ventricular ejection fraction is 40 %. Normal LV size. [place] : Dyskinetic. Apical false tendon noted. No apical thrombus noted Contrast injection was performed. Ordering Physician: Dameon Lynn Referring Physician: Dameon Lynn Performed By: Belén Kendall RCS
--- NOTE | 2024-11-05 17:12 | STRESSREP ---
Stress Test Report Pharmacologic myocardial perfusion stress test. 64-year-old man with a history of coronary artery disease Resting EKG demonstrates sinus bradycardia with a rate of 57 bpm. Poor R wave progression is noted. Resting blood pressure is 132/80 mmHg. 0.4 mg of regadenoson was infused per usual protocol followed by rapid intravenous saline flush injection. Continuous EKG monitoring was performed. The maximum heart rate was 91 bpm which was 57% of max impacted heart rate the maximum workload was 1 metabolic equivalent. At rest there were no ST or T wave changes noted to suggest ischemia and at peak infusion nonspecific ST changes were noted which did not meet the criteria for ischemia. No clinical angina is noted. The final blood pressure was 132/82 mmHg. Myocardial perfusion protocol. 12.0 mCi of technetium 99m sestamibi was injected at rest. 0.4 mg of regadenoson was infused per usual protocol. At peak infusion 36 mCi of technetium 99m sestamibi was injected stress images were obtained stress and rest images were reconstructed and compared in the short axis vertical long and horizontal long axis. Gated images were also obtained. Perfusion SPECT analysis: Review of the stress images demonstrate normal uptake of tracer noted in all areas of the myocardium, but there is a large area in the anteroseptal wall as well as the apex with reduced perfusion on the stress images. The rest images demonstrate a similar pattern. The above is suggestive of a previous anteroseptal, and apical infarct. No reversibility is noted suggest ischemia. Gated SPECT analysis: The gated ejection fraction is 47%. Conclusion: Pharmacologic myocardial perfusion stress test with previous apical, anteroseptal infarct. No ischemia noted Reduced ejection fraction
== END | disposition home or self-care (01) ==
LOC: CVS 06:16
PROVIDERS: PCP Family Medicine; Referring Provider Nurse Practitioner Family; Visit Provider Nurse Practitioner Family
DX: R93.89 Abnormal findings on diagnostic imaging of other specified body structures (principal); I10 Essential (primary) hypertension; I25.5 Ischemic cardiomyopathy; E78.5 Hyperlipidemia, unspecified; Z95.5 Presence of coronary angioplasty implant and graft
CPT/HCPCS: 78452; 93017; 93308; A9500; Q9957; A4216; C8924; J2785

== ENCOUNTER → 2025-06-26 | Outpatient (CLI) | payer OTHER, SELFPAY ==
[2017-07-04 12:04] VITALS: BMI 29.2
[2025-06-26 12:18] LABS: Hematocrit 47.2 % (40-54); Hemoglobin 16.0 g/dL (13.0-16.5); Immature Granulocytes Count 0.070 X10^3/uL (0.0-0.0); Mean Corp Hgb Conc 33.9 g/dL (32-36); Mean Corpuscular Volume 98.1 fL (80-94); Mean Platelet Vol. 10.2 fl (6.2-12.0); NRBC Flagged by Analyzer 0 % (0-5); Platelet Count 559 K/mm3 (150-450); RBC Distribution Width CV 14.2 % (11.6-14.6); RBC Distribution Width SD 51.9 fl (35.1-43.9); Red Blood Count 4.81 M/mm3 (4.6-6.2); White Blood Count 8.1 K/mm3 (4.4-11.0)
[2025-06-26 13:01] LABS: Cholesterol 128 mg/dL (<=200); Low Density Lipoprotein Calc. 50 mg/dL; Triglycerides 58 mg/dL; Very Low Density Lipoprotein 12 mg/dL (5-40); cholesterol:hdl ratio screen 1.94
[2025-06-26 13:03] LABS: AST(SGOT) 30 U/L (<=37); Alanine Aminotransfer ALT/SGPT 36 U/L (<=46); Albumin, Serum 4.4 g/dL (3.4-4.8); Alkaline Phosphatase 96 U/L (40-129); Anion Gap 11 (5-15); BUN 26 mg/dL (4-19); BUN/Creat Ratio 18.2 RATIO (10-20); Bilirubin, Direct 0.31 mg/dL (0.00-0.30); Calcium,Total 9.4 mg/dL (7.6-11.0); Carbon Dioxide 21.2 mmol/L (21.0-32.0); Chloride 107 mmol/L (98-108); Globulin 2.8 g/dL (2.2-4.2); Glucose 91 mg/dL (70-99); Potassium 4.5 mmol/L (3.3-5.1)
== END | disposition home or self-care (01) ==
LOC: LAB 11:20
PROVIDERS: PCP Family Medicine; Referring Provider Nurse Practitioner Family; Visit Provider Nurse Practitioner Family
DX: I25.5 Ischemic cardiomyopathy (principal); I10 Essential (primary) hypertension; E78.5 Hyperlipidemia, unspecified; R93.89 Abnormal findings on diagnostic imaging of other specified body structures; Z95.5 Presence of coronary angioplasty implant and graft
CPT/HCPCS: 36415; 80048; 80061; 80076; 85025